=== PATIENT | male | born 1945 | race Caucasian/White ===

== ENCOUNTER 2020-09-06 01:13 | Emergency (ER) | payer MEDICARE, OTHER ==
[~2020-09-06] VITALS: Ht 178 cm; Wt 86.0 kg
[2020-09-06] MEDS ORDERED: OXYMETAZOLINE (AFRIN) 0.05% NA 30 ML BTL ONE (01:17)
[2020-09-06] MEDS ORDERED: TRANEXAMIC ACID 100 MG/ML 10 ML INJECTION ONE (01:30)
--- NOTE | 2020-09-06 01:37 | ED EENT ---
History of Present Illness General Chief Complaint: Nasal Problems Stated Complaint: NOSEBLEED Nursing Triage Note: BROUGHT IN BY [facility] FROM [facility] FOR NOSE BLEED Source: EMS, group home records Exam Limitations: other (PT WITH DEMENTIA AND UNABLE TO GIVE ANY INFORMATION. NO PRIOR VISITS HERE FOR ADDITIONAL PAST MEDICAL HISTORY) History of Present Illness Date Seen by Provider: Sep 06, 2020 Time Seen by Provider: 01:13 Initial Comments PT [facility] EMS [facility] --[facility]--APPARENTLY WITH COVID-19 INFECTION, GROUP HOME DID NOT REPORT THIS, AND IS UNKNOWN IF HE IS STILL UNDER QUARANTINE. PT WITH LEFT SIDED NOSEBLEED--BEGAN JUST PRIOR TO ARRIVAL PT WITH HISTORY OF NOSEBLEEDS, AND HAS ORDER FOR AFRIN SOAKED COTTON BALLS TO NOSE PRN NOSEBLEED, BUT THIS HAS NOT BEEN DONE BY GROUP HOME STAFF PT NOTED TO BE PICKING AT NOSE AND EMS REPORT THAT PT REPEATEDLY WAS BLOWING HIS NOSE IN HIS HANDS EN ROUTE, WELL PICKING HIS NOSE PT IS ON ASPIRIN AND PLAVIX. IS UNCLEAR ON GROUP HOME RECORDS WHAT MEDICAL CONDITION HE HAS THAT HE TAKES THESE MEDICATIONS FOR. GROUP HOME STAFF ARE UNABLE TO GIVE ANY OTHER INFORMATION ABOUT PT PT'S BASELINE LAB VALUES ARE UNKNOWN PCP: DR. JORDAN Allergies and Home Medications Allergies Coded Allergies: Iodine and Iodide Containing Produc (Verified Allergy, Unknown, 09/06/20) Home Medications Cefuroxime Axetil 500 Mg Tablet, 500 MG PO BID Prescribed by: NIKKI RAINEY on 09/06/20 0211 Patient Home Medication List Home Medication List Reviewed: Yes Review of Systems Review of Systems Constitutional: other (UNABLE TO OBTAIN ANY INFORMATION FROM PT) Nose: see HPI Past Cuntkdr-Ziyzpe-Zigikf Hx Past Med/Social Hx: Reviewed and Corrections made Patient Social History Alcohol Use: Denies Use Smoking Status: Unknown if Ever Smoked 2nd Hand Smoke Exposure: No Recent Infectious Disease Expo: No Recent Hopitalizations: No Immunizations Up To Date Tetanus Booster (TDap): Unknown Seasonal Allergies Seasonal Allergies: No Past Medical History Surgeries: Yes (RIGHT FOOT--ALL TOES AMPUTATED. PARTIAL AMPUTATION LEFT GREAT TOE) Amputation, Orthopedic Respiratory: Yes (COVID-19 INFECTION) Pneumonia, COPD Cardiac: Yes High Cholesterol, Hypertension Neurological: Yes (DEMENTIA WITH BEHAVIOR DISTURBANCE) Dementia, Neuropathy, Parkinson's Disease, Seizure Disorder Genitourinary: Yes Prostate Problems, Bladder Infection, Kidney Stones Gastrointestinal: Yes Gastroesophageal Reflux, Chronic Constipation Musculoskeletal: Yes Amputee, Arthritis, Fibromyalgia Endocrine: Yes Diabetes, Insulin dep HEENT: Yes (NOSEBLEEDS) Hearing Impairment: Hard of Hearing Cancer: No Psychosocial: Yes (DEMENTIA WITH BEHAVIOR DISTURBANCE) Sleep Difficulties, Depression Integumentary: No Blood Disorders: No Physical Exam Vital Signs Vital Signs - First Documented 09/06/20 01:13 Temp 36.4 Pulse 89 Resp 18 B/P (MAP) 104/67 (79) Pulse Ox 99 O2 Delivery Room Air Height, Weight, BMI Height: '" Weight: lbs. oz. kg; 27.00 BMI Method: General Appearance: WD/WN, no apparent distress, other (PT COVERED IN BLOOD, INCLUDING THE BOTTOMS OF HIS FEET, CLOTHING SATURATED. PT ZAMORA CATHETER IN PLACE. ) Nose: active bleeding (LEFT NARE), other (PT NOTED TO BE PICKING AT NOSE ON ARRIVAL) Mouth/Throat: other (MOUTH FULL OF BLOOD AND CLOT NOTED ON TONGUE) Cardiovascular: regular rate, rhythm Respiratory: normal breath sounds Neurologic/Psychiatric: other (MOVES ALL EXTREMITIES. PT DOES TALK, BUT IS MOSTLY NON-CONVERSATIONAL. PT DOES NOT FOLLOW COMMANDS WELL. ) Skin: normal color, warm/dry Procedures/Interventions Nasal : Nasal Location: Left Nasal Drops Instilled: Afrin Inspection with: Otoscope Nasal Procedures: Rapid Rhino Progress AFRIN SPRAYED INTO LEFT NOSTRIL PT UNABLE TO FOLLOW COMMANDS TO BLOW NOSE--SITE OF BLEED IS NOT WELL IDENTIFIED, BUT IS POSSIBLY ANTERIOR SEPTUM. 5.5 CM RAPID RHINO SATURATED WITH TXA PLACED IN LEFT NARE. PT UNABLE TO FOLLOW COMMANDS TO GARGLE OR TO EVEN SWISH MOUTH OR TO SPIT TO CLEAR BLOOD AND CLOTS FROM MOUTH AND POSTERIOR PHARYNX. UNABLE TO VIEW POSTERIOR PHARYNX PT UNABLE TO FOLLOW COMMANDS TO OPEN MOUTH FOR ME TO EXAMINE. Progress/Results/Core Measures Results/Orders Lab Results Laboratory Tests Test 09/06/20 01:30 Range/Units White Blood Count 8.2 4.3-11.0 10^3/uL Red Blood Count 2.83 L 4.30-5.52 10^6/uL Hemoglobin 8.9 L 13.3-17.7 g/dL Hematocrit 27 L 40-54 % Mean Corpuscular Volume 97 80-99 fL Mean Corpuscular Hemoglobin 31 25-34 pg Mean Corpuscular Hemoglobin Concent 33 32-36 g/dL Red Cell Distribution Width 14.7 H 10.0-14.5 % Platelet Count 267 130-400 10^3/uL Mean Platelet Volume 10.5 9.0-12.2 fL Immature Granulocyte % (Auto) 1 % Neutrophils (%) (Auto) 61 42-75 % Lymphocytes (%) (Auto) 23 12-44 % Monocytes (%) (Auto) 12 0-12 % Eosinophils (%) (Auto) 3 0-10 % Basophils (%) (Auto) 1 0-10 % Neutrophils # (Auto) 5.0 1.8-7.8 10^3/uL Lymphocytes # (Auto) 1.9 1.0-4.0 10^3/uL Monocytes # (Auto) 1.0 0.0-1.0 10^3/uL Eosinophils # (Auto) 0.3 0.0-0.3 10^3/uL Basophils # (Auto) 0.0 0.0-0.1 10^3/uL Immature Granulocyte # (Auto) 0.1 0.0-0.1 10^3/uL Prothrombin Time 14.5 12.2-14.7 SEC INR Comment 1.1 0.8-1.4 Activated Partial Thromboplast Time 33 24-35 SEC My Orders Orders - NIKKI RAINEY DO Cbc With Automated Diff (09/06/20 01:17) Protime With Inr (09/06/20 01:17) Partial Thromboplastin Time (09/06/20 01:17) Oxymetazoline 0.05% Nasal [place] (Afrin 0. (09/06/20 09:00) Tranexamic Acid Injection (Cyklokapron I (09/06/20 01:30) Oxymetazoline 0.05% Nasal [place] (Afrin 0. (09/06/20 01:17) Medications Given in ED Current Medications Medications Dose Ordered Sig/Chana Route Start Time Stop Time Status Last Admin Dose Admin Tranexamic Acid ONCE ONCE NA 09/06/20 01:30 09/06/20 01:31 DC 09/06/20 01:27 1,000 MG Vital Signs/I&O 09/06/20 01:13 Temp 36.4 Pulse 89 Resp 18 B/P (MAP) 104/67 (79) Pulse Ox 99 O2 Delivery Room Air Blood Pressure Mean: 79 Progress Progress Note : Progress Note NO FURTHER BLEEDING NOTED ANTERIORLY, PT IS UNCOOPERATIVE FOR ADEQUATE INSPECTION OF POSTERIOR PHARYNX, BUT THERE IS NO BLOOD COMING FROM MOUTH AND PT IS NOT CHOKING/GAGGING OR HAVING DIFFICULTY BREATHING PT ABLE TO SWALLOW SMALL AMOUNTS OF WATER WITH STRAW. PT OBSERVED IN ER FOR AN HOUR AFTER NOSE WAS PACKED. NO OBVIOUS EVIDENCE OF RE- BLEED. PRIOR TO DISMISSAL, PT PULLED OUT NASAL PACK. PT AGAIN OBSERVED, AND NO RE-BLEED ING OCCURRED. GROUP HOME STAFF ARRIVE, AND I DISCUSSED REPLACING THE NASAL PACK, AND THEY REPORT THAT HE WILL PULL IT OUT AGAIN AND THEY REPORT THAT PT IS CONSTANTLY PICKING AT HIS NOSE. Departure Impression Primary Impression: Left-sided epistaxis Additional Impressions: ASPIRIN AND PLAVIX THERAPY Anemia Disposition: XFER SNF Condition: Stable Departure-Patient Inst. Referrals: LUCIA GROVER MD, RICHARD A DO Patient Instructions: Nosebleeds (DC), Anemia, Possibly From Low Iron, Adult Add. Discharge Instructions: LEAVE NASAL PACKING IN PLACE DO NOT RUB OR BLOW OR PICK AT NOSE HOLD PLAVIX UNTIL MONDAY REPEAT CBC ON MONDAY--DR. JORDAN FOR ORDERS FOLLOW UP WITH DR. GROVER, ENT, IN 2-3 DAYS FOR FURTHER CARE OF NOSEBLEED RETURN TO ER IF WORSE FOLLOW UP WITH DR. JORDAN ON MONDAY FOR FOLLOW UP ON ANEMIA All discharge instructions reviewed with patient and/or family. Voiced understanding. Scripts Cefuroxime Axetil (Cefuroxime) 500 Mg Tablet 500 MG PO BID, #20 TAB Prov: NIKKI RAINEY DO 09/06/20 NIKKI RAINEY DO Sep 06, 2020 01:36
[2020-09-06 01:49] LABS: BASOPHILS % (AUTO) 1 % (0-10); EOSINOPHILS # (AUTO) 0.3 10^3/uL (0.0-0.3); EOSINOPHILS % (AUTO) 3 % (0-10); HEMATOCRIT 27 % (40-54); HEMOGLOBIN 8.9 g/dL (13.3-17.7); LYMPHOCYTES # (AUTO) 1.9 10^3/uL (1.0-4.0); LYMPHOCYTES % (AUTO) 23 % (12-44); MEAN CORPUSCULAR HEMOGLOBIN 31 pg (25-34); MEAN CORPUSCULAR HGB CONC 33 g/dL (32-36); MEAN CORPUSCULAR VOLUME 97 fL (80-99); MEAN PLATELET VOLUME 10.5 fL (9.0-12.2); MONOCYTES % (AUTO) 12 % (0-12); NEUTROPHILS % (AUTO) 61 % (42-75); PLATELET COUNT 267 10^3/uL (130-400); WHITE BLOOD COUNT 8.2 10^3/uL (4.3-11.0)
[2020-09-06 01:58] LABS: INR 1.1 (0.8-1.4); PROTHROMBIN TIME PATIENT 14.5 SEC (12.2-14.7)
[2020-09-06] MEDS ORDERED: CEFU500T63 PO (02:11)
--- NOTE | 2020-09-06 02:30 | NUR ---
[facility] notified of pt's pending discharge.
[2020-09-06 03:05] VITALS: BP 109/66
[2020-09-06] MEDS ORDERED: OXYMETAZOLINE (AFRIN) 0.05% NA 30 ML BTL SCH (09:00)
== END 2020-09-06 03:05 ==
LOC: ER 01:16
DX: R04.0 Epistaxis (principal); D64.9 Anemia, unspecified; F03.90 Unspecified dementia, unspecified severity, without behavioral disturbance, psychotic disturbance, mood disturbance, and anxiety; Z88.8 Allergy status to other drugs, medicaments and biological substances
CPT/HCPCS: 36415; 85025; 85610; 85730

== ENCOUNTER 2020-09-07 13:46 | Emergency (ER) | payer BC, OTHER ==
[~2020-09-07] VITALS: Ht 182 cm; Wt 83.9 kg
[~2020-09-07 13:46] MED LIST: CEFU500T63 PO
[2020-09-07] MEDS ORDERED: LIDOCAINE/EPI 2% 1:100,00 (XYLOCAINE) 20 ML VIAL ONE (13:54)
[2020-09-07] MEDS ORDERED: LIDOCAINE/EPI 2% 1:200,00 (XYLOCAINE) 20 ML VIAL INJ ONE (14:00)
--- NOTE | 2020-09-07 14:01 | ED Integumentary General ---
General Chief Complaint: Skin/Wound Problems Stated Complaint: FOOT LAC History of Present Illness Date Seen by Provider: Sep 07, 2020 Time Seen by Provider: 13:44 Initial Comments Patient presents the ER by EMS from [facility] with chief complaint of a couple day old laceration to the medial right ankle of unknown origin that has ceased to stop bleeding. The pressure dressing on it unsuccessfully stopping it. He is on Plavix but no blood thinners. The stop Plavix 2 days ago. Patient has dementia and is oriented to self but nothing else. History of anemia. The patient denies shortness of breath or chest pain[facility] noted he had a blood pressure in the 80s and 90s systolic. Allergies and Home Medications Allergies Coded Allergies: Iodine and Iodide Containing Produc (Verified Allergy, Unknown, 09/06/20) Home Medications Cefuroxime Axetil 500 Mg Tablet, 500 MG PO BID Prescribed by: NIKKI RAINEY on 09/06/20 0211 Patient Home Medication List Home Medication List Reviewed: Yes Review of Systems Review of Systems Constitutional: No chills, No fever EENTM: No hearing loss, No ear pain Cardiovascular: No chest pain, No edema Gastrointestinal: No abdominal pain, No nausea Genitourinary: No discharge, No dysuria Skin: see HPI All Other Systems Reviewed Negative Unless Noted: Yes Past Ewaojkb-Biipws-Hbjngu Hx Patient Social History Alcohol Use: Denies Use Type Used: Smokeless Tobacco 2nd Hand Smoke Exposure: No Recent Hopitalizations: No Immunizations Up To Date Tetanus Booster (TDap): Unknown Seasonal Allergies Seasonal Allergies: No Past Medical History Surgeries: Yes (RIGHT FOOT--ALL TOES AMPUTATED. PARTIAL AMPUTATION LEFT GREAT TOE) Amputation, Orthopedic Respiratory: Yes (COVID-19 INFECTION) Pneumonia, COPD Cardiac: Yes High Cholesterol, Hypertension Neurological: Yes (DEMENTIA WITH BEHAVIOR DISTURBANCE) Dementia, Neuropathy, Parkinson's Disease, Seizure Disorder Genitourinary: Yes Prostate Problems, Bladder Infection, Kidney Stones Gastrointestinal: Yes Gastroesophageal Reflux, Chronic Constipation Musculoskeletal: Yes Amputee, Arthritis, Fibromyalgia Endocrine: Yes Diabetes, Insulin dep HEENT: Yes (NOSEBLEEDS) Hearing Impairment: Hard of Hearing Cancer: No Psychosocial: Yes (DEMENTIA WITH BEHAVIOR DISTURBANCE) Sleep Difficulties, Depression Integumentary: No Blood Disorders: No Physical Exam Vital Signs Capillary Refill : General Appearance: WD/WN, no apparent distress HEENT: PERRL/EOMI, pharynx normal Neck: full range of motion, normal inspection Cardiovascular: normal peripheral pulses, regular rate, rhythm Respiratory: no respiratory distress, no accessory muscle use Neurologic/Psychiatric: alert, normal mood/affect, other (Oriented to self.) Skin: other (2 mm punctate laceration over a varicosity on the right medial ankle just inferior to the malleolus.) Procedures/Interventions Wound Location: Lower Extremities Other Wound Location Right ankle inferior to the medial malleolus Wound Length (cm): 2 Wound's Depth, Shape: superficial, linear Wound Explored: clean Irrigated w/ Saline (ccs): 500 Betadine Prep?: Yes (Chlorhexidine) Anesthesia: Lidocaine w/ Epi (2%) Volume Anesthetic (ccs): 1 Wound Debrided: minimal Suture: Ethlion Suture Size: 4-0 Number of Sutures: 1 Sterile Dressing Applied?: Yes Progress Thoroughly cleansed the skin with chlorhexidine and sterile saline. We then allowed that to dry and rinsed with sterile saline. Placed a single suture using sterile technique in a pursestring manner which stopped the bleeding. Gauze dressing with Kerlix and a small layer of Coban for compression was placed. Patient tolerated the procedure well. Progress/Results/Core Measures Results/Orders My Orders Orders - CHRISTOS CASILLAS Cbc With Automated Diff (09/07/20 13:54) Comprehensive Metabolic Panel (09/07/20 13:54) Lidocaine/Epi Mpf 2% 1:200,000 (Xylocain (09/07/20 14:00) Progress Progress Note : Time: 14:11 Progress Note Bleeding varicosity. Plan to put a pursestring stitch in place. Check some basic labs. 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 Decision time for Depature: 14:13 Referrals: LEANDRA JORDAN DO (PCP/Family) Primary Care Physician Patient Instructions: Treatment of Varicose Veins of the Leg Add. Discharge Instructions: Keep the wound clean with regular soap and water. Keep it dry and you may apply thin layer of Vaseline and/or just gauze with Kerlix to be changed daily. Follow-up with Dr. Jordan for wound recheck. You may return to the ER or have nursing staff remove the suture in 10 days. If he has bleeding then elevate the leg above the level of his heart and apply direct pressure. Return to the ER if you are unable to control the bleeding. Discussed with Dr. Jordan when to restart Plavix. All discharge instructions reviewed with patient and/or family. Voiced understanding. CHRISTOS CASILLAS Sep 07, 2020 14:01
[2020-09-07 14:05] LABS: BASOPHILS % (AUTO) 1 % (0-10); EOSINOPHILS # (AUTO) 0.3 10^3/uL (0.0-0.3); EOSINOPHILS % (AUTO) 4 % (0-10); HEMATOCRIT 27 % (40-54); HEMOGLOBIN 8.8 g/dL (13.3-17.7); LYMPHOCYTES # (AUTO) 1.9 10^3/uL (1.0-4.0); LYMPHOCYTES % (AUTO) 23 % (12-44); MEAN CORPUSCULAR HEMOGLOBIN 31 pg (25-34); MEAN CORPUSCULAR HGB CONC 32 g/dL (32-36); MEAN CORPUSCULAR VOLUME 97 fL (80-99); MEAN PLATELET VOLUME 10.5 fL (9.0-12.2); MONOCYTES # (AUTO) 0.7 10^3/uL (0.0-1.0); MONOCYTES % (AUTO) 8 % (0-12); NEUTROPHILS # (AUTO) 5.6 10^3/uL (1.8-7.8); NEUTROPHILS % (AUTO) 65 % (42-75); PLATELET COUNT 311 10^3/uL (130-400); WHITE BLOOD COUNT 8.6 10^3/uL (4.3-11.0)
[2020-09-07 14:12] LABS: ALBUMIN 3.7 GM/DL (3.2-4.5); POTASSIUM 4.5 MMOL/L (3.6-5.0)
[2020-09-07 14:14] LABS: CALCIUM 9.4 MG/DL (8.5-10.1)
[2020-09-07 14:17] LABS: BILIRUBIN,TOTAL 0.4 MG/DL (0.1-1.0)
[2020-09-07 14:19] LABS: CREATININE SERUM 1.72 MG/DL (0.60-1.30)
--- NOTE | 2020-09-07 14:26 | NUR ---
[facility] noted on pt discharge and need for transporation.
--- NOTE | 2020-09-07 15:36 | NUR ---
CALLED [facility] FOR TRANSPORTATION STATUS. NURSE STATED IT WOULD BE ABOUT 45 MINS UNTIL SOMEONE COULD BE HERE TO GET PT.
[2020-09-07 17:05] VITALS: BP 101/64
== END 2020-09-07 17:05 | disposition home or self-care (01) ==
LOC: EDUNIT# 13:46 → ER 13:47
DX: I83.891 Varicose veins of right lower extremity with other complications (principal); Z91.041 Radiographic dye allergy status
CPT/HCPCS: 12001; 36415; 80053; 85025

== ENCOUNTER 2020-09-17 04:52 | Emergency (ER) | payer BC, OTHER ==
[2020-09-17] MEDS ORDERED: TRANEXAMIC ACID 100 MG/ML 10 ML INJECTION IV ONE (05:00)
--- NOTE | 2020-09-17 05:17 | ED EENT ---
History of Present Illness General Chief Complaint: Nasal Problems Stated Complaint: NOSE BLEED Source: EMS, long-term records, old records Exam Limitations: other (PT WITH DEMENTIA AND UNABLE TO ANSWER QUESTIONS) History of Present Illness Date Seen by Provider: Sep 17, 2020 Time Seen by Provider: 04:54 Initial Comments PT ARRIVES VIA EMS FROM [facility] STAFF NOTICED THAT PT HAD NOSEBLEED FROM LEFT NARE AROUND 0400 THIS AM PT IS ON ASPIRIN AND PLAVIX EMS REPORT THAT ASSISTED STAFF PLACED GAUZE SOAKED WITH AFRIN IN LEFT NARE, AND BLEEDING SEEMS TO BE CONTROLLED AT THIS TIME. PT WITH DEMENTIA/ALZHEIMER'S AND WAS SEEN HERE 09/06/20 FOR EXACT SAME THING, SAME NARE. IT WAS PACKED WITH RAPID RHINO WITH TXA AT THAT TIME ( WHICH PT PULLED OUT TRANSPORTATION FROM [facility] ARRIVED TO PICK HIM UP. ASSISTED STAFF OPTED NOT TO HAVE IT RE-PACKED IT WAS NO LONGER BLEEDING. PT WITH LONG HISTORY OF NOSE PICKING, PER ASSISTED STAFF) . PLAVIX WAS HELD AT THAT TIME AND WAS TO HAVE HAD REPEAT CBC DONE AND FOLLOWED UP WITH DR. GROVER, ENT. H GB AT THAT TIME WAS 8.8 PT SEEN HERE AGAIN 09/07/20 FOR PERSISTENT BLEEDING FROM VARICOSE VEIN ON MEDIAL ASPECT OF RIGHT ANKLE AND IT WAS SUTURED AND BLEEDING WAS CONTROLLED. PCP: DR. JORDAN Allergies and Home Medications Allergies Coded Allergies: Iodine and Iodide Containing Produc (Verified Allergy, Unknown, 09/06/20) Home Medications Cefuroxime Axetil 500 Mg Tablet, 500 MG PO BID Prescribed by: NIKKI RAINEY on 09/17/20 0523 Patient Home Medication List Home Medication List Reviewed: Yes Review of Systems Review of Systems Constitutional: no symptoms reported (PT WITH DEMENTIA AND IS UNABLE TO ANSWER QUESTIONS) Nose: see HPI Past Mzdgfpx-Krfbnk-Xbbbjr Hx Patient Social History Alcohol Use: Denies Use Type Used: Smokeless Tobacco 2nd Hand Smoke Exposure: No Recent Hopitalizations: No Immunizations Up To Date Tetanus Booster (TDap): Unknown Seasonal Allergies Seasonal Allergies: No Past Medical History Surgeries: Yes (RIGHT FOOT--ALL TOES AMPUTATED. PARTIAL AMPUTATION LEFT GREAT TOE) Amputation, Orthopedic Respiratory: Yes (COVID-19 INFECTION) Pneumonia, COPD Cardiac: Yes High Cholesterol, Hypertension Neurological: Yes (DEMENTIA WITH BEHAVIOR DISTURBANCE) Dementia, Neuropathy, Parkinson's Disease, Seizure Disorder Genitourinary: Yes Prostate Problems, Bladder Infection, Kidney Stones Gastrointestinal: Yes Gastroesophageal Reflux, Chronic Constipation Musculoskeletal: Yes Amputee, Arthritis, Fibromyalgia Endocrine: Yes Diabetes, Insulin dep HEENT: Yes (NOSEBLEEDS) Hearing Impairment: Hard of Hearing Cancer: No Psychosocial: Yes (DEMENTIA WITH BEHAVIOR DISTURBANCE) Sleep Difficulties, Depression Integumentary: No Blood Disorders: No Physical Exam Vital Signs Vital Signs - First Documented 09/17/20 09/17/20 05:03 08:08 Temp 36.2 Pulse 74 Resp 16 B/P (MAP) 127/92 (104) Pulse Ox 95 O2 Delivery Room Air Height, Weight, BMI Height: '" Weight: lbs. oz. kg; 25.00 BMI Method: General Appearance: WD/WN, no apparent distress, other (SOME BLOOD NOTED ON CLOTHING, MOSTLY HIS SHIRT, BUT IS NOT SATURATED. SMALL ABOUNT OF BLOOD ON FEET. ) Nose: other (LEFT NARE WITH GAUZE IN PLACE, WITH LARGE CLOT ATTACHED. NASAL CLAMP IN PLACE WELL. NO ACTIVE BLEEDING NOTED AT THIS TIME. ) Mouth/Throat: other (SMALL AMOUNT OF DRIED BLOOD ON LIPS. BUT NO APPARENT BLOOD ON TONGUE. PT HAS DIFFICULTY FOLLOWING COMMANDS TO OPEN MOUTH AND STICK OUT TONGUE. ) Neurologic/Psychiatric: other (PT WITH DEMENTIA, PT DOES TALK BUT IS MOSTLY NON-CONVERSATIONAL SPEECH. HAS DIFFICULTY FOLLOWING COMMANDS. ) Skin: normal color, warm/dry, other (SUTURE TO RIGHT MEDIAL ANKLE IN PLACE, WITH NO BLEEDING OR SIGNS OF INFECTION. NO EXCESSIVE BRUISING OR PETECHIAE NOTED ELSEWHERE ON BODY) Procedures/Interventions Suture Size: 4-0 Nasal : Nasal Location: Left Inspection with: Otoscope Nasal Procedures: Rapid Rhino Progress 5.5 CM RAPID RHINO SOAKED WITH TXA PLACED IN LEFT NARE. BLEEDING CONTROLLED PT OBSERVED IN ER. NO FURTHER BLEEDING NOTED. Progress/Results/Core Measures Results/Orders Lab Results Laboratory Tests Test 09/17/20 05:05 Range/Units White Blood Count 9.5 4.3-11.0 10^3/uL Red Blood Count 2.69 L 4.30-5.52 10^6/uL Hemoglobin 8.5 L 13.3-17.7 g/dL Hematocrit 27 L 40-54 % Mean Corpuscular Volume 99 80-99 fL Mean Corpuscular Hemoglobin 32 25-34 pg Mean Corpuscular Hemoglobin Concent 32 32-36 g/dL Red Cell Distribution Width 16.4 H 10.0-14.5 % Platelet Count 306 130-400 10^3/uL Mean Platelet Volume 9.7 9.0-12.2 fL Prothrombin Time 14.0 12.2-14.7 SEC INR Comment 1.1 0.8-1.4 Activated Partial Thromboplast Time 34 24-35 SEC My Orders Orders - NIKKI RAINEY DO Cbc No Diff (09/17/20 04:57) Protime With Inr (09/17/20 04:57) Partial Thromboplastin Time (09/17/20 04:57) Tranexamic Acid Injection (Cyklokapron I (09/17/20 05:00) Medications Given in ED Vital Signs/I&O Progress Progress Note : Progress Note 0605--PT HAS PULLED THE RAPID RHINO OUT. NO BLEEDING NOTED AT THIS TIME, AND NO BLOOD ON THE PACKING. PACKING WAS RE-INSERTED WITHOUT DIFFICULTY. [facility] HAS BEEN CONTACTED. THEY WILL SEND SOMEONE OUT TO PICK PT UP--ETA 1 TO 1 1/2 HOURS. 0630--PT HAS PULLED THE RAPID RHINO OUT AGAIN. NO BLOOD ON PACKING AND NO BLEEDING AT THIS TIME. PACKING LEFT OUT AT THIS POINT. Departure Impression Primary Impression: RECURRENT LEFT SIDED EPISTAXIS Additional Impressions: ASPIRIN AND PLAVIX THERAPY DEMENTIA WITH HISTORY OF NOSEPICKING Anemia Disposition: 03 XFER SNF Condition: Stable Departure-Patient Inst. Referrals: LUCIA GROVER MD, RICHARD A DO (PCP/Family) Primary Care Physician Patient Instructions: Nosebleeds (DC) Add. Discharge Instructions: HOLD PLAVIX--DO NOT RESTART UNTIL DISCUSSING WITH DR. JORDAN CONTINUE ALL PREVIOUS INSTRUCTIONS FOLLOW UP WITH DR. GROVER THIS WEEK FOR FURTHER CARE FOLLOW UP WITH DR. JORDAN THIS WEEK FOR RECHECK OF HEMOGLOBIN All discharge instructions reviewed with patient and/or family. Voiced understanding. Scripts Cefuroxime Axetil (Cefuroxime) 500 Mg Tablet 500 MG PO BID, #20 TAB Prov: NIKKI RAINEY DO 09/17/20 NIKKI RAINEY DO Sep 17, 2020 05:17
[2020-09-17 05:21] LABS: HEMOGLOBIN 8.5 g/dL (13.3-17.7); MEAN PLATELET VOLUME 9.7 fL (9.0-12.2); WHITE BLOOD COUNT 9.5 10^3/uL (4.3-11.0)
[2020-09-17] MEDS ORDERED: CEFU500T63 PO (05:23)
[2020-09-17 05:42] LABS: INR 1.1 (0.8-1.4)
[2020-09-17 08:08] VITALS: BP 117/76
== END 2020-09-17 08:10 ==
LOC: EDUNIT# 04:52 → ER 04:53
DX: R04.0 Epistaxis (principal); F03.90 Unspecified dementia, unspecified severity, without behavioral disturbance, psychotic disturbance, mood disturbance, and anxiety; D64.9 Anemia, unspecified; Z91.041 Radiographic dye allergy status; Z79.82 Long term (current) use of aspirin; Z79.02 Long term (current) use of antithrombotics/antiplatelets
CPT/HCPCS: 36415; 85027; 85610; 85730

== ENCOUNTER 2020-09-22 07:51 | Outpatient (CLI) | payer BC, OTHER ==
[~2020-09-22] VITALS: Ht 178 cm; Wt 83.9 kg
[2020-09-22 08:00] VITALS: BP 116/67
[2020-09-22] MEDS ORDERED: NS IV 500 ML 500 ML IV SCH (08:30)
[2020-09-22] MEDS ORDERED: ACETAMINOPHEN 325 MG TABLET PO ONE (08:30)
[2020-09-22] MEDS ORDERED: diphenhydrAMINE 25 MG TAB (BENADRYL) PO ONE (08:30)
[2020-09-22 12:51] LABS: HEMOGLOBIN 8.9 g/dL (13.3-17.7)
== END 2020-09-22 13:30 ==
LOC: SDC 07:51
PROVIDERS: ATTEND Family Medicine
DX: D64.9 Anemia, unspecified (principal)
CPT/HCPCS: 36430; 85014; 85018; 86850; 86900; 86901; 86920; P9016; 36415

== ENCOUNTER → 2020-11-16 | Outpatient (CLI) | payer BC, OTHER | LOC: CARD 12:22 | PROVIDERS: ATTEND Family Medicine | DX: R07.9 Chest pain, unspecified (principal) | CPT/HCPCS: 93005 ==

== ENCOUNTER → 2020-12-05 | Outpatient (CLI) | payer BC, OTHER ==
[~2020-12-05] MED LIST changes: +LEVO500T80 PO
[2020-12-05 11:33] LABS: BILIRUBIN,URINE NEGATIVE (NEGATIVE); CLARITY,URINE CLOUDY; GLUCOSE, URINE (UA) NEGATIVE (NEGATIVE); KETONES,URINE NEGATIVE (NEGATIVE); LEUKOCYTE ESTERASE ,URINE 3+ (NEGATIVE); NITRITE,URINE POSITIVE (NEGATIVE); PROTEIN,URINE 2+ (NEGATIVE)
[2020-12-05 11:41] LABS: BACTERIA,URINE MODERATE /HPF; COLOR,URINE AMBER; RBC,URINE TNTC /HPF; SQUAMOUS EPITHELIAL CELL,UR RARE /HPF; WBC,URINE TNTC /HPF
== END ==
LOC: CVS 11:29
PROVIDERS: ATTEND Family Medicine
DX: Z01.89 Encounter for other specified special examinations (principal)
CPT/HCPCS: 81000; 87077; 87088; 87186

== ENCOUNTER 2020-12-08 12:46 | Emergency (ER) | payer BC, OTHER ==
[~2020-12-08] VITALS: Ht 184 cm; Wt 83.9 kg
[~2020-12-08 12:46] MED LIST changes: -LEVO500T80 PO
--- NOTE | 2020-12-08 13:44 | ED Abdominal Pain ---
General Chief Complaint: Abdominal/GI Problems Stated Complaint: RLQ PAIN Nursing Triage Note: PT CC OF RLQ PAIN SENT HERE BY DR. JORDAN. RN AT FACILITY STATES ABD PAIN FOR A FEW DAYS OFF AND ON RLQ, PAIN ON PALPATIONN NORMAL BM THIS A.M., DENIES NV, SUPRA PUBIC CATHETER IN PLACE. Sepsis Screen: No Definite Risk Source of Information: Patient Exam Limitations: No Limitations History of Present Illness Date Seen by Provider: December 08, 2020 Time Seen by Provider: 13:43 Initial Comments To ER by private vehicle from [facility] with reports of right lower quadrant abdominal pain for a few days. Timing/Duration: 4-5 Days Severity/Quality: Moderate, Severe Location: RLQ Radiation: No Radiation Activities at Onset: None Allergies and Home Medications Allergies Coded Allergies: Iodine and Iodide Containing Produc (Verified Allergy, Unknown, 09/06/20) Home Medications Cefuroxime Axetil 500 Mg Tablet, 500 MG PO BID Prescribed by: NIKKI RAINEY on 09/17/20 0523 Patient Home Medication List Home Medication List Reviewed: Yes Review of Systems Review of Systems Constitutional: see HPI EENTM: No Symptoms Reported Respiratory: No Symptoms Reported Cardiovascular: No Symptoms Reported Gastrointestinal: See HPI, Abdominal Pain Genitourinary: No Symptoms Reported Musculoskeletal: no symptoms reported Skin: no symptoms reported Psychiatric/Neurological: No Symptoms Reported Endocrine: No Symptoms Reported Hematologic/Lymphatic: No Symptoms Reported Past Iwfmavw-Xtmvjy-Sryafr Hx Patient Social History Alcohol Use: Denies Use Smoking Status: Never a Smoker Type Used: Smokeless Tobacco 2nd Hand Smoke Exposure: No Recent Infectious Disease Expo: No Recent Hopitalizations: No Immunizations Up To Date Tetanus Booster (TDap): Unknown Seasonal Allergies Seasonal Allergies: No Past Medical History Surgeries: Yes (RIGHT FOOT--ALL TOES AMPUTATED. PARTIAL AMPUTATION LEFT GREAT TOE) Amputation, Orthopedic Respiratory: Yes (COVID-19 INFECTION) Pneumonia, COPD Cardiac: Yes High Cholesterol, Hypertension Neurological: Yes (DEMENTIA WITH BEHAVIOR DISTURBANCE) Dementia, Neuropathy, Parkinson's Disease, Seizure Disorder Genitourinary: Yes Prostate Problems, Bladder Infection, Kidney Stones Gastrointestinal: Yes Gastroesophageal Reflux, Chronic Constipation Musculoskeletal: Yes Amputee, Arthritis, Fibromyalgia Endocrine: Yes Diabetes, Insulin dep HEENT: Yes (NOSEBLEEDS) Hearing Impairment: Hard of Hearing Cancer: No Psychosocial: Yes (DEMENTIA WITH BEHAVIOR DISTURBANCE) Sleep Difficulties, Depression Integumentary: No Blood Disorders: No Physical Exam Vital Signs Vital Signs - First Documented 12/08/20 13:14 Temp 35.9 Pulse 60 Resp 18 B/P (MAP) 140/70 (93) Pulse Ox 97 O2 Delivery Room Air Capillary Refill : Less Than 3 Seconds Height/Weight/BMI Height: '" Weight: lbs. oz. kg; 24.00 BMI Method: General Appearance: WD/WN, no apparent distress HEENT: PERRL/EOMI, normal ENT inspection Respiratory: no respiratory distress, no accessory muscle use Gastrointestinal: normal bowel sounds, soft, tenderness (Right-sided tenderness to palpation. Suprapubic catheter is in place.) Extremities: normal range of motion, non-tender Neurologic/Psychiatric: alert, normal mood/affect, oriented x 3 Skin: normal color, warm/dry Procedures/Interventions Suture Size: 4-0 Progress/Results/Core Measures Results/Orders Lab Results Laboratory Tests Test 12/08/20 13:30 Range/Units White Blood Count 7.0 4.3-11.0 10^3/uL Red Blood Count 3.80 L 4.30-5.52 10^6/uL Hemoglobin 11.0 L 13.3-17.7 g/dL Hematocrit 35 L 40-54 % Mean Corpuscular Volume 91 80-99 fL Mean Corpuscular Hemoglobin 29 25-34 pg Mean Corpuscular Hemoglobin Concent 32 32-36 g/dL Red Cell Distribution Width 14.3 10.0-14.5 % Platelet Count 216 130-400 10^3/uL Mean Platelet Volume 11.1 9.0-12.2 fL Immature Granulocyte % (Auto) 0 % Neutrophils (%) (Auto) 59 42-75 % Lymphocytes (%) (Auto) 27 12-44 % Monocytes (%) (Auto) 9 0-12 % Eosinophils (%) (Auto) 5 0-10 % Basophils (%) (Auto) 0 0-10 % Neutrophils # (Auto) 4.1 1.8-7.8 10^3/uL Lymphocytes # (Auto) 1.9 1.0-4.0 10^3/uL Monocytes # (Auto) 0.6 0.0-1.0 10^3/uL Eosinophils # (Auto) 0.4 H 0.0-0.3 10^3/uL Basophils # (Auto) 0.0 0.0-0.1 10^3/uL Immature Granulocyte # (Auto) 0.0 0.0-0.1 10^3/uL Urine Color YELLOW Urine Clarity CLEAR Urine pH 6.0 5-9 Urine Specific [place] 1.020 1.016-1.022 Urine Protein 2+ H NEGATIVE Urine Glucose (UA) NEGATIVE NEGATIVE Urine Ketones NEGATIVE NEGATIVE Urine Nitrite POSITIVE H NEGATIVE Urine Bilirubin NEGATIVE NEGATIVE Urine Urobilinogen 0.2 < = 1.0 MG/DL Urine Leukocyte Esterase 3+ H NEGATIVE Urine RBC (Auto) 1+ H NEGATIVE Urine RBC 2-5 H /HPF Urine WBC 50-100 H /HPF Urine Squamous Epithelial Cells RARE /HPF Urine Crystals NONE /LPF Urine Bacteria MODERATE H /HPF Urine Casts NONE /LPF Urine Mucus NEGATIVE /LPF Urine Culture Indicated YES Sodium Level 145 135-145 MMOL/L Potassium Level 4.3 3.6-5.0 MMOL/L Chloride Level 109 H 98-107 MMOL/L Carbon Dioxide Level 24 21-32 MMOL/L Anion Gap 12 5-14 MMOL/L Blood Urea Nitrogen 29 H 7-18 MG/DL Creatinine 1.05 0.60-1.30 MG/DL Estimat Glomerular Filtration Rate > 60 BUN/Creatinine Ratio 28 Glucose Level 92 70-105 MG/DL Calcium Level 9.0 8.5-10.1 MG/DL Corrected Calcium 9.2 8.5-10.1 MG/DL Total Bilirubin 0.3 0.1-1.0 MG/DL Aspartate Amino Transf (AST/SGOT) 20 5-34 U/L Alanine Aminotransferase (ALT/SGPT) 14 0-55 U/L Alkaline Phosphatase 68 40-136 U/L Total Protein 6.5 6.4-8.2 GM/DL Albumin 3.7 3.2-4.5 GM/DL My Orders Orders - ALEXA KEYS CATECHIST Cbc With Automated Diff (12/08/20 13:36) Comprehensive Metabolic Panel (12/08/20 13:36) Ua Culture If Indicated (12/08/20 13:36) Ed Iv/Invasive Line Start (12/08/20 13:36) Ct Abd/Pelvis Wo(Kidney Stone) (12/08/20 13:36) Urine Culture (12/08/20 13:30) Vital Signs/I&O 12/08/20 13:14 Temp 35.9 Pulse 60 Resp 18 B/P (MAP) 140/70 (93) Pulse Ox 97 O2 Delivery Room Air Blood Pressure Mean: 93 Diagnostic Imaging Diagonstic Imaging: CT Comments NAME: JOSI ROMEO [facility] REC#: [id number] PT STATUS: REG ER : 1945 PHYSICIAN: ALEXA KEYS CATECHIST ADMIT DATE: 12/08/20/ER Draft Date of Exam:12/08/20 CT ABD/PELVIS WO(KIDNEY STONE) INDICATION: Abdominal pain. TECHNIQUE: Multiple contiguous axial images were obtained through the abdomen and pelvis without the use of intravenous contrast. Auto Exposure Controls were utilized during the CT exam to meet ALARA standards for radiation dose reduction. COMPARISON: There is no prior study for comparison. FINDINGS: Visualized portions of the lung bases show dependent atelectatic changes. There is no pleural fluid collection or free intraperitoneal air. The liver shows no focal lesions. Gallbladder appears normal. The spleen, adrenals, and pancreas appear normal. There are some tiny calcified periaortic nodes of questionable significance. Kidneys bilaterally showed no hydronephrosis. There are multiple stones in the left kidney as well as surgical clips anterior to the left kidney. There are multiple small stones in the right kidney. There is no ureteral stone. There is a suprapubic catheter in the bladder. Prostate gland contains multiple seed implants. There is no retroperitoneal adenopathy. There is no ascites. There is a large amount of stool in the colon. There is no sign of bowel obstruction. There are extensive degenerative findings in the lumbar spine. IMPRESSION: There are bilateral renal calculi as well as postop changes in left kidney, without evidence of hydronephrosis or ureteral stone. There is a large amount of stool in the colon. There is no overt bowel obstruction. There is a suprapubic catheter in the bladder and the bladder is decompressed. Dictated on workstation # [id number] Dict: 12/08/20 1437 Trans: 12/08/20 1445 [id number] Interpreted by: JOE PETTIT MD Electronically signed by: Departure Impression Primary Impression: Urinary tract infection Disposition: 01 HOME, SELF-CARE Condition: Stable Departure-Patient Inst. Decision time for Depature: 14:55 Referrals: LEANDRA JORDAN DO (PCP/Family) Primary Care Physician Patient Instructions: Urinary Tract Infection, Adult (DC) Add. Discharge Instructions: 1. Antibiotics as directed. Return to ER for any concerns. Follow-up with your doctor later this week for recheck. All discharge instructions reviewed with patient and/or family. Voiced understanding. ALEXA KEYS APRN December 08, 2020 13:44
[2020-12-08 13:45] LABS: BASOPHILS % (AUTO) 0 % (0-10); EOSINOPHILS # (AUTO) 0.4 10^3/uL (0.0-0.3); EOSINOPHILS % (AUTO) 5 % (0-10); HEMATOCRIT 35 % (40-54); LYMPHOCYTES # (AUTO) 1.9 10^3/uL (1.0-4.0); LYMPHOCYTES % (AUTO) 27 % (12-44); MEAN CORPUSCULAR HEMOGLOBIN 29 pg (25-34); MEAN CORPUSCULAR HGB CONC 32 g/dL (32-36); MEAN CORPUSCULAR VOLUME 91 fL (80-99); MEAN PLATELET VOLUME 11.1 fL (9.0-12.2); MONOCYTES # (AUTO) 0.6 10^3/uL (0.0-1.0); MONOCYTES % (AUTO) 9 % (0-12); NEUTROPHILS # (AUTO) 4.1 10^3/uL (1.8-7.8); NEUTROPHILS % (AUTO) 59 % (42-75); PLATELET COUNT 216 10^3/uL (130-400)
[2020-12-08 13:46] LABS: BILIRUBIN,URINE NEGATIVE (NEGATIVE); CLARITY,URINE CLEAR; COLOR,URINE YELLOW; GLUCOSE, URINE (UA) NEGATIVE (NEGATIVE); KETONES,URINE NEGATIVE (NEGATIVE); LEUKOCYTE ESTERASE ,URINE 3+ (NEGATIVE); NITRITE,URINE POSITIVE (NEGATIVE); PROTEIN,URINE 2+ (NEGATIVE)
[2020-12-08 13:58] LABS: BACTERIA,URINE MODERATE /HPF; SQUAMOUS EPITHELIAL CELL,UR RARE /HPF; WBC,URINE 50-100 /HPF
[2020-12-08 14:03] LABS: ALBUMIN 3.7 GM/DL (3.2-4.5); CHLORIDE 109 MMOL/L (98-107); POTASSIUM 4.3 MMOL/L (3.6-5.0); SODIUM 145 MMOL/L (135-145)
[2020-12-08 14:06] LABS: GLUCOSE 92 MG/DL (70-105); TOTAL PROTEIN 6.5 GM/DL (6.4-8.2)
[2020-12-08 14:07] LABS: CARBON DIOXIDE 24 MMOL/L (21-32)
[2020-12-08 14:08] LABS: BILIRUBIN,TOTAL 0.3 MG/DL (0.1-1.0)
[2020-12-08 14:09] LABS: ALKALINE PHOSPHATASE 68 U/L (40-136)
[2020-12-08 14:10] LABS: CREATININE SERUM 1.05 MG/DL (0.60-1.30); GFR ESTIMATED > 60
[2020-12-08 14:11] LABS: BUN/CREATININE RATIO 28
[2020-12-08 14:12] LABS: ALANINE AMINOTRANSFERASE 14 U/L (0-55)
--- NOTE | 2020-12-08 14:45 | Diagnostic Imaging Report ---
INDICATION: Abdominal pain. TECHNIQUE: Multiple contiguous axial images were obtained through the abdomen and pelvis without the use of intravenous contrast. Auto Exposure Controls were utilized during the CT exam to meet ALARA standards for radiation dose reduction. COMPARISON: There is no prior study for comparison. FINDINGS: Visualized portions of the lung bases show dependent atelectatic changes. There is no pleural fluid collection or free intraperitoneal air. The liver shows no focal lesions. Gallbladder appears normal. The spleen, adrenals, and pancreas appear normal. There are some tiny calcified periaortic nodes of questionable significance. Kidneys bilaterally showed no hydronephrosis. There are multiple stones in the left kidney as well as surgical clips anterior to the left kidney. There are multiple small stones in the right kidney. There is no ureteral stone. There is a suprapubic catheter in the bladder. Prostate gland contains multiple seed implants. There is no retroperitoneal adenopathy. There is no ascites. There is a large amount of stool in the colon. There is no sign of bowel obstruction. There are extensive degenerative findings in the lumbar spine. IMPRESSION: There are bilateral renal calculi as well as postop changes in left kidney, without evidence of hydronephrosis or ureteral stone. There is a large amount of stool in the colon. There is no overt bowel obstruction. There is a suprapubic catheter in the bladder and the bladder is decompressed. Dictated by: Dictated on workstation # [id number]
[2020-12-08] MEDS ORDERED: LEVO500T80 PO (15:04)
[2020-12-08 15:19] VITALS: BP 128/84
== END 2020-12-08 15:19 | disposition home or self-care (01) ==
LOC: EDUNIT# 12:46 → ER 12:47
DX: N39.0 Urinary tract infection, site not specified (principal); I10 Essential (primary) hypertension; J44.9 Chronic obstructive pulmonary disease, unspecified; G20 Parkinson's disease; E11.9 Type 2 diabetes mellitus without complications; Z91.041 Radiographic dye allergy status
CPT/HCPCS: 36415; 74176; 80053; 81000; 85025; 87077; 87088; 87186

== ENCOUNTER 2020-12-18 16:47 | Observation (INO) | payer MEDICARE, OTHER ==
[~2020-12-18] VITALS: Ht 193 cm; Wt 90.7 kg
[~2020-12-18 16:47] MED LIST changes: +LEVO500T80 PO
[2020-12-18] MEDS ORDERED: TETANUS,DIPTH,PERTUSS P/F (BOOSTRIX) 0.5 ML VIAL IM ONE (17:00)
--- NOTE | 2020-12-18 17:04 | ED Fall/Injury ---
General Stated Complaint: FELL Source: patient Exam Limitations: other (Dementia) (IWONA MONTOYA MD) History of Present Illness Date Seen by Provider: December 18, 2020 Time Seen by Provider: 16:50 Initial Comments Patient here by EMS after fall at [facility]. Patient is on the Alzheimer's unit. Unwitnessed fall. Patient states he fell back and hit his head on the concrete. No report of loss of consciousness. Has skin tears to bilateral elbows and abrasion to the posterior scalp. Bleeding controlled at all sites. Patient denies any other pain but did report some neck pain when palpated. Unknown tetanus status. Occurred: just prior to arrival (Approximately 30 minutes ago) Severity: mild Injuries/Pain Location: head, upper extremity Context: unknown Loss of Consciousness: no loss of consciousness Associated Symptoms (Fall): No Chest Pain; Confusion (Baseline dementia but answers questions appropriately and follows commands), Headache; No Muscle Spasms, No Nausea/Vomiting; Neck Pain (IWONA MONTOYA MD) Allergies and Home Medications Allergies Coded Allergies: Iodine and Iodide Containing Produc (Verified Allergy, Unknown, 09/06/20) Home Medications Cefuroxime Axetil 500 Mg Tablet, 500 MG PO BID Prescribed by: NIKKI RAINEY on 09/17/20 0523 Levofloxacin 500 Mg Tablet, 500 MG PO DAILY Prescribed by: ALEXA KEYS on 12/08/20 1504 Patient Home Medication List Home Medication List Reviewed: Yes (IWONA MONTOYA MD) Review of Systems Review of Systems Constitutional: see HPI; No chills, No fever Eyes: No Symptoms Reported Ears, Nose, Mouth, Throat: no symptoms reported Respiratory: No cough, No short of breath Cardiovascular: No chest pain, No edema Gastrointestinal: no symptoms reported Musculoskeletal: joint pain, neck pain Skin: change in color, lesions Psychiatric/Neurological: Headache, Pre-Existing Deficit (IWONA MONTOYA MD) Past Bckmuon-Hxlmlp-Uxzbvn Hx Past Med/Social Hx: Reviewed Nursing Past Med/Soc Hx (IWONA MONTOYA MD) Patient Social History Alcohol Use: Denies Use Type Used: Smokeless Tobacco 2nd Hand Smoke Exposure: No Recent Hopitalizations: No (IWONA MONTOYA MD) Immunizations Up To Date Tetanus Booster (TDap): Unknown (IWONA MONTOYA MD) Seasonal Allergies Seasonal Allergies: No (IWONA MONTOYA MD) Past Medical History Surgeries: Yes (RIGHT FOOT--ALL TOES AMPUTATED. PARTIAL AMPUTATION LEFT GREAT TOE) Amputation, Orthopedic Respiratory: Yes (COVID-19 INFECTION) Pneumonia, COPD Cardiac: Yes High Cholesterol, Hypertension Neurological: Yes (DEMENTIA WITH BEHAVIOR DISTURBANCE) Dementia, Neuropathy, Parkinson's Disease, Seizure Disorder Genitourinary: Yes Prostate Problems, Bladder Infection, Kidney Stones Gastrointestinal: Yes Gastroesophageal Reflux, Chronic Constipation Musculoskeletal: Yes Amputee, Arthritis, Fibromyalgia Endocrine: Yes Diabetes, Insulin dep HEENT: Yes (NOSEBLEEDS) Hearing Impairment: Hard of Hearing Cancer: No Psychosocial: Yes (DEMENTIA WITH BEHAVIOR DISTURBANCE) Sleep Difficulties, Depression Integumentary: No Blood Disorders: No (IWONA MONTOYA MD) Family Medical History Reviewed Nursing Family Hx (IWONA MONTOYA MD) Physical Exam Vital Signs Vital Signs - First Documented 12/18/20 16:47 Temp 37.1 Pulse 76 Resp 16 B/P (MAP) 137/70 (92) Pulse Ox 99 O2 Delivery Room Air (CHRISTOS CASILLAS) Vital Signs Capillary Refill : (IWONA MONTOYA MD) Height, Weight, BMI Height: '" Weight: lbs. oz. kg; 24.00 BMI Method: General Appearance: WD/WN, no apparent distress HEENT: PERRL/EOMI, TMs normal Neck: full range of motion, supple, tender lateral (Bilateral mild) Cardiovascular: regular rate, rhythm, no murmur Respiratory: lungs clear, normal breath sounds Gastrointestinal: non tender, soft Extremities: normal range of motion, no pedal edema, other (Able to move bilateral upper extremities without difficulty. Skin tears to both elbows that are covered with dressing and bleeding is controlled.) Neurologic/Psychiatric: alert, other (Alert to person and place.) Skin: warm/dry, other (1.5 cm abrasion posterior scalp bald spot. Superficial and not amiable to suturing or axel.) (IWONA MONTOYA MD) [place] Coma Score Best Eye Response: (4) Open Spontaneously Best Verbal Response: (5) Oriented Best Motor Response: (6) Obeys Commands (IWONA MONTOYA MD) Procedures/Interventions Suture Size: 4-0 (IWONA MONTOYA MD) Progress/Results/Core Measures Results/Orders Medications Given in ED Current Medications Medications Dose Ordered Sig/Chana Route Start Time Stop Time Status Last Admin Dose Admin Diphtheria/ Tetanus/Acell Pertussis 0.5 ml ONCE ONCE IM 12/18/20 17:00 12/18/20 17:01 DC 12/18/20 17:05 0.5 ML (CHRISTOS CASILLAS) Vital Signs/I&O 12/18/20 16:47 Temp 37.1 Pulse 76 Resp 16 B/P (MAP) 137/70 (92) Pulse Ox 99 O2 Delivery Room Air (CHRISTOS CASILLAS) Progress Progress Note : Progress Note Seen and evaluated. Wounds cleaned by nursing and dressed. CT head and neck ordered. Tetanus updated. Monitor patient. (IWONA MONTOYA MD) Progress Note : Time: 19:36 Progress Note Assumed care of the patient at shift change. He is pleasant, alert and oriented times person and place. The wound seems to be hemostatic on the back of his head with a Steri-Strip. He has gotten a tetanus vaccine. We discussed since he is not a good candidate for any kind of neuro interventional surgery just d oing a CT in the morning with a short observation stay with local surgery for prognosis sake and the patient is okay with this plan. We have updated the [facility]. (CHRISTOS CASILLAS) Diagnostic Imaging Diagonstic Imaging: CT Plain Films/CT/US/NM/MRI: head Comments Focal hyperdensities within the lateral aspect of the right basal ganglia. Favored to relate to calcifications, possibly from prior injury or ischemia. Harshly calcified mass lesion, including a vascular malformation is felt less likely. Given the focal hyperdensities at this location, recent intraparenchymal hemorrhage not completely excluded though felt less likely. Comparison to prior imaging is recommended. If further evaluation is desired, MRI of the brain versus follow-up CT imaging of the brain could be obtained. No acute osseous abnormality within the cervical spine with mild to moderate multilevel degenerative changes. Reviewed: Reviewed by Me (CHRISTOS CASILLAS) Departure Communication (Admissions) Time/Spoke to Admitting Phy: 19:30 Discussed the case with Dr. Rodríguez and he is resume all home meds except for the Eliquis and will get a CT in the morning without contrast of the head. (CHRISTOS CASILLAS) Impression Primary Impression: Fall Qualified Codes: W19.XXXA - Unspecified fall, initial encounter Additional Impressions: Head injury due to trauma Qualified Codes: S09.90XA - Unspecified injury of head, initial encounter Occipital scalp laceration Qualified Codes: S01.01XA - Laceration without foreign body of scalp, initial encounter Possible intraparenchymal hemorrhage Disposition: ADMITTED INPATIENT Condition: Stable Admissions Decision to Admit Reason: Admit from ER (Trauma) Decision to Admit/Date: December 18, 2020 Time/Decision to Admit Time: 19:30 (CHRISTOS CASILLAS) Departure-Patient Inst. Referrals: LEANDRA JORDAN DO (PCP/Family) Primary Care Physician IWONA MONTOYA MD December 18, 2020 17:03 CHRISTOS CASILLAS December 18, 2020 19:46
--- NOTE | 2020-12-18 18:24 | Diagnostic Imaging Report ---
PROCEDURE: CT head and CT cervical spine without contrast. TECHNIQUE: Multiple contiguous axial images were obtained through the brain and cervical spine without the use of intravenous contrast. Sagittal and coronal reformations through the cervical spine were then performed. Auto Exposure Controls were utilized during the CT exam to meet ALARA standards for radiation dose reduction. INDICATION: Trauma, fall. COMPARISON: None available FINDINGS: Mild atrophy. Hyperdensities are identified within the peripheral aspect of the right basal ganglia. Calcifications are identified along the interhemispheric falx, particularly on the left. No additional intracranial hemorrhage. No midline shift, uncal herniation, obstructive hydrocephalus, or suspicious extra-axial fluid collection. Soft tissue swelling and injury is noted involving the midline posterior scalp, particularly superiorly. No underlying calvarial fracture. Bilateral ocular lenses are absent. Otherwise, the orbits are unremarkable. Mucosal thickening and fluid within some posterior left ethmoidal air cells. Chronic medial deviation of the right lamina papyracea. Alignment of the cervical spine is well maintained without significant anterolisthesis or retrolisthesis. Alignment of the atlantooccipital joint is well maintained. Vertebral body heights are well-maintained. Mild disc space height loss at C6-C7 and C7-T1. No acute fracture or dislocation. No destructive osseous process. Scattered facet joint degenerative changes and uncovertebral joint hypertrophy are present. No apical pneumothorax. Mild scattered vascular calcifications. Otherwise, the paraspinal soft tissues are unremarkable. IMPRESSION: Focal hyperdensities within the lateral aspect of the right basal ganglia. These are favored to relate to calcifications, possibly from prior injury or ischemia. Partially calcified mass lesion, including a vascular malformation is felt less likely. Given focal hyperdensities at this location, recent intraparenchymal hemorrhage not completely excluded though felt less likely. Comparison to prior imaging is recommended. If further evaluation is desired, MRI of the brain versus follow-up CT imaging of the brain could be obtained. No acute osseous abnormality within the cervical spine with [id number] multilevel degenerative changes. Soft tissue injury involving the posterior midline scalp without underlying calvarial fracture. Report given to Que Puente APRN and faxed to ER doctor at 6:20 PM 12/18/2020/cb Dictated by: Dictated on workstation # [id number]
[2020-12-18 20:24] VITALS: BP 148/76
[2020-12-18] MEDS ORDERED: ACETAMINOPHEN 325 MG TABLET PO PRN (20:30)
[2020-12-18] MEDS ORDERED: CATHETER FLUSH 10 ML SYR IV PRN (20:30)
[2020-12-18] MEDS ORDERED: ONDANSETRON 4 MG/2 ML (SDV) Z0FRAN IV PRN (20:30)
[2020-12-18] MEDS: inSUlin ASPART (NovoLOG) 1 UNIT/0.01 ML (CHARGE PER UNIT) SC SCH (21:14)
[2020-12-18] MEDS: CATHETER FLUSH 10 ML SYR IV SCH (22:00)
--- NOTE | 2020-12-18 23:19 | HISTORY AND PHYSICAL ---
DATE OF SERVICE: ADMITTING PRIMARY CARE PHYSICIAN: Dr. Potts. HISTORY OF PRESENT ILLNESS: The patient is a 75-year-old male who is a resident of a group home in the Alzheimer's unit. Staff reports and underwent a witnessed fall; however, the patient states that he fell back and hit his head. He did not report any loss of consciousness. He did have some abrasions of his elbows as well as the posterior scalp. He does not report any visual changes as well as no focal deficits. His [place] coma scale was 13. A CT scan of the head was performed, which did show hyperdensity along the right basal ganglia, which favors calcifications from prior injury or ischemia; however, followup imaging was recommended. PAST MEDICAL HISTORY: Dementia, neuropathy, Parkinson's disease, seizure disorder, chronic urinary tract infection, history of nephrolithiasis, gastroesophageal reflux disease, constipation, degenerative joint disease, fibromyalgia, diabetes, depression. 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 ALLERGIES: IODINE. MEDICATIONS: Cefuroxime 500 mg b.i.d., levofloxacin 500 mg daily. SOCIAL HISTORY: Previous smokeless tobacco, negative alcohol. FAMILY HISTORY: Noncontributory. VITAL SIGNS: Temperature 37.1, blood pressure 137/70, pulse 76, respirations 16, pulse ox 99% on room air. REVIEW OF SYSTEMS: Well-nourished male currently in no acute distress. He does answer majority of questions appropriately; however, is confused from his history of dementia and Alzheimer's disease. He does not report any shortness of breath or difficulty in breathing. No chest pain, palpitations, diaphoresis. No nausea, vomiting with history of constipation. He does not report any headache or any visual changes as well as no focal deficits. No fever, chills, no recent inadvertent weight loss. All other review of systems negative. PHYSICAL EXAMINATION: CHEST: Few scattered rales bilaterally. HEART: Regular, no murmurs. EXTREMITIES: No lower extremity edema, negative Homans sign. HEENT: No scleral icterus. NECK: No cervical lymphadenopathy. ABDOMEN: Soft, nontender, nondistended. NEUROLOGIC: Moves all four extremities purposefully upon command. Opens eyes spontaneously and verbalizes; however, slightly confused; however, this likely is his baseline. [place] coma scale 13. ASSESSMENT AND PLAN: A 75-year-old male with same level fall with abrasions of bilateral elbows as well as laceration of the posterior scalp. CT scan of the head did show a hyperdensity along the lateral aspect of the right basal ganglia, which favors calcifications from previous injury or ischemia. We will admit him for observation, proceed with serial neurologic examinations as well as a repeat CT scan tomorrow. If no changes were identified and his neurologic status is stable with no changes, we will transfer him back to his extended care facility. Job ID: [id number] DocumentID: [id number] Dictated Date: 12/18/2020 22:41:47 Inseminator Date: 12/18/2020 23:18:46 Dictated By: SUDHIR VASQUEZ MD MTDD
[2020-12-19] VITALS: BP 109/62
[2020-12-19 04:00] VITALS: BP 127/74
[2020-12-19] MEDS: inSUlin ASPART (NovoLOG) 1 UNIT/0.01 ML (CHARGE PER UNIT) SC SCH ×2 (05:09→11:22)
[2020-12-19] MEDS: CATHETER FLUSH 10 ML SYR IV SCH (06:16)
[2020-12-19 08:23] VITALS: BP 140/67
--- NOTE | 2020-12-19 10:03 | Progress Note ---
Subjective Date Seen by a Provider: December 19, 2020 Time Seen by a Provider: 09:50 Subjective/Events-last exam Patient seen with Dr. Rodríguez. RN reports patient uncooperative due to dementia and keeps trying to get out of bed and get up. Patient pulled out IV right before entering room. Patient oriented to person, but not place or time. He does report he has a headache and does recall falling and hitting his head. Objective Exam Vital Signs Date Time Temp Pulse Resp B/P (MAP) Pulse Ox O2 Delivery O2 Flow Rate FiO2 12/19/20 08:23 35.9 60 18 140/67 (91) 98 Room Air 12/19/20 08:00 98 Room Air 12/19/20 04:00 37.0 59 18 127/74 (91) 100 Room Air 12/19/20 01:22 Room Air 12/19/20 00:00 37.0 75 18 109/62 (78) 100 Room Air 12/18/20 20:24 37.0 63 18 148/76 (100) 100 Room Air 12/18/20 20:10 37.1 64 18 140/56 98 Room Air 12/18/20 16:47 37.1 76 16 137/70 (92) 99 Room Air I & O 12/19/20 07:00 Intake Total 400 ml Output Total 1150 ml Balance -750 ml Capillary Refill : Less Than 3 Seconds General Appearance: No Apparent Distress, WD/WN Neck: Normal Inspection, Supple Respiratory: No Accessory Muscle Use, No Respiratory Distress Cardiovascular: Regular Rate, Rhythm, No Edema Gastrointestinal: normal bowel sounds, non tender, soft Extremity: Normal Inspection, Normal Range of Motion Neurologic/Psychiatric: Alert, Other (Patient confused but has dementia) Skin: Normal Color, Warm/Dry, Other (Posterior scalp laceration with steri- strip in place. Tender to palpation. Bilateral elbow abrasions.) Results Lab Laboratory Tests 12/18/20 20:58: Glucometer 85 12/19/20 04:48: Glucometer 87 Assessment/Plan Assessment/Plan Assess & Plan/Chief Complaint A 75-year-old male with same level fall with abrasions of bilateral elbows as well as laceration of the posterior scalp, Alzheimer dementia VSS Tolerating diet Continue medical management Awaiting CT results and if unchanged, then patient can be DC'd back to facility that he resides at. JOCY KENNEY APRN December 19, 2020 10:03
--- NOTE | 2020-12-19 10:08 | Discharge Inst-Surgical ---
D/C Lap Instructions-GISELLEO Reconcile Patient Problems Problems Reviewed?: Yes Follow Up Appt as needed Activity as tolerated Regular Diet Symptoms to Report: Fever over 101 degree F, Nausea/Vomiting Infection Signs and Symptoms to report: Increased redness, Foul odor of wound, Increased drainage Bathing instructions: May shower Operative Area Clean/Dry; Keep incision clean/dry If any problems/questions: Contact your physician or go to Emergency Room JOCY KENNEY APRN December 19, 2020 10:08
--- NOTE | 2020-12-19 10:37 | Diagnostic Imaging Report ---
PROCEDURE: CT head without contrast. TECHNIQUE: Multiple contiguous axial images were obtained through the brain without the use of intravenous contrast. Auto Exposure Controls were utilized during the CT exam to meet ALARA standards for radiation dose reduction. DATE: December 19, 2020. COMPARISON: CT head and cervical spine December 18, 2020. INDICATION: 75-year-old male, head injury. Follow-up exam. FINDINGS: There is no identified skull fracture. There is soft tissue swelling of the occipital and parietal scalp compatible with soft tissue contusion/small hematoma. There is proportional prominence of the ventricles and additional CSF spaces consistent with mild cerebral volume loss. There are areas of very high attenuation in the region of the right insula which are likely areas of calcification. There is no abnormal extra-axial fluid collection. There is no convincing acute intracranial hemorrhage. There is no mass effect or midline shift. IMPRESSION: 1. Areas of high attenuation in the region of the right insula most likely calcified and likely relates to sequela of prior insult rather long-standing process. 2. No convincing evidence of acute intracranial hemorrhage or other acute intracranial abnormality. 3. Mild cerebral volume loss. Dictated by: Dictated on workstation # [id number]
[2020-12-19 11:12] VITALS: BP 128/69
== END 2020-12-19 11:17 ==
LOC: EDUNIT# 16:47 → ER 16:49 → 4TH 19:30 → UNDOADMOB 19:30 → 4TH 20:24 → UNDODISOB 12-19 13:31
PROVIDERS: ADMIT Surgery; ATTEND Surgery
DX: S50.312A Abrasion of left elbow, initial encounter (principal); S50.311A Abrasion of right elbow, initial encounter; S01.01XA Laceration without foreign body of scalp, initial encounter; S09.90XA Unspecified injury of head, initial encounter; G30.9 Alzheimer's disease, unspecified; F02.80 Dementia in other diseases classified elsewhere, unspecified severity, without behavioral disturbance, psychotic disturbance, mood disturbance, and anxiety; J44.9 Chronic obstructive pulmonary disease, unspecified; I10 Essential (primary) hypertension; E78.00 Pure hypercholesterolemia, unspecified; K21.9 Gastro-esophageal reflux disease without esophagitis; E11.40 Type 2 diabetes mellitus with diabetic neuropathy, unspecified; M19.90 Unspecified osteoarthritis, unspecified site; F32.9 Major depressive disorder, single episode, unspecified; Z79.899 Other long term (current) drug therapy; W18.30XA Fall on same level, unspecified, initial encounter
CPT/HCPCS: 70450 ×2; 72125; 82947 ×2; 90471; 99284; G0378; 90715

== ENCOUNTER → 2020-12-25 | Outpatient (CLI) | payer BC, OTHER | LOC: CARD 09:00 | PROVIDERS: ATTEND Internal Medicine Cardiovascular Disease | DX: I10 Essential (primary) hypertension (principal); I35.1 Nonrheumatic aortic (valve) insufficiency; I25.10 Atherosclerotic heart disease of native coronary artery without angina pectoris | CPT/HCPCS: 93306 ==

== ENCOUNTER 2021-02-18 08:41 | Emergency (ER) | payer BC, MEDICAID, MEDICARE, OTHER ==
[~2021-02-18] VITALS: Ht 190.5 cm; Wt 100.0 kg
[2021-02-18] MEDS ORDERED: NS IV 1000 ML 1,000 ML ONE (09:17)
--- NOTE | 2021-02-18 09:22 | ED GU-Male ---
General Chief Complaint: - Urinary Stated Complaint: BLOOD IN CATHETER Nursing Triage Note: Pt to ED from detention. Aid with pt reports pt has blood in urine. Pt has suprapubic catheter with leg bag in place. Leg bag is full of blood. Aid reports symptoms were first noted last night. Pt denies pain. Pt has urology appt tomorrow. Pt had UA at [facility] lab today. Source: patient, RN/MD, detention records Exam Limitations: clinical condition (Dementia) History of Present Illness Date Seen by Provider: Feb 18, 2021 Time Seen by Provider: 08:50 Initial Comments Patient to the ER by private conveyance from [facility] with chief complaint of noticing yudi blood in the urine. He has a leg bag and suprapubic catheter pursuant to ureteral stricture and urinary retention historically. He has a history of prostatic cancer. He also has history of Parkinson's and Alzheimer's and does not contribute meaningfully to his history. He states he has pain all over. No fevers or chills. No nausea or vomiting today. Allergies and Home Medications Allergies Coded Allergies: Iodine and Iodide Containing Produc (Verified Allergy, Unknown, 09/06/20) Home Medications Cefuroxime Axetil 500 Mg Tablet, 500 MG PO BID Prescribed by: NIKKI RAINEY on 09/17/20 0581 Levofloxacin 500 Mg Tablet, 500 MG PO DAILY Prescribed by: ALEXA KEYS on 12/08/20 1504 Patient Home Medication List Home Medication List Reviewed: Yes Review of Systems Review of Systems Constitutional: No chills, No diaphoresis EENTM: No ear discharge, No ear pain Respiratory: No cough, No short of breath Cardiovascular: No chest pain, No edema Gastrointestinal: No abdominal pain, No nausea, No vomiting Genitourinary: see HPI; denies discharge, denies dysuria; hematuria Musculoskeletal: No back pain, No joint pain Skin: No pruritus, No rash Psychiatric/Neurological: Denies Headache, Denies Numbness All Other Systemes Reviewed Negative Unless Noted: Yes Past Ufhwpar-Hvwalf-Iunpyn Hx Patient Social History Tobacco Use?: No Substance use?: No Alcohol Use?: No Immunizations Up To Date Tetanus Booster (TDap): Unknown First/Initial COVID19 Vaccinat: 09/03/20 Second COVID19 Vaccination Ricardo: 09/24/20 COVID19 Vaccine 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 PARTIAL AMPUTATION LEFT GREAT TOE) Amputation, Orthopedic Respiratory: Yes (COVID-19 INFECTION) Pneumonia, COPD Cardiac: Yes High Cholesterol, Hypertension Neurological: Yes (DEMENTIA WITH BEHAVIOR DISTURBANCE) Dementia, Neuropathy, Parkinson's Disease, Seizure Disorder Genitourinary: Yes Prostate Problems, Bladder Infection, Kidney Stones Gastrointestinal: Yes Gastroesophageal Reflux, Chronic Constipation Musculoskeletal: Yes Amputee, Arthritis, Fibromyalgia Endocrine: Yes Diabetes, Insulin dep HEENT: Yes (NOSEBLEEDS) Hearing Impairment: Hard of Hearing Cancer: No Psychosocial: Yes (DEMENTIA WITH BEHAVIOR DISTURBANCE) Sleep Difficulties, Depression Integumentary: No Blood Disorders: No Physical Exam Vital Signs Vital Signs - First Documented 02/18/21 08:48 Temp 36.8 Pulse 60 Resp 15 B/P (MAP) 130/73 (92) Pulse Ox 100 O2 Delivery Room Air Capillary Refill : Less Than 3 Seconds Height, Weight, BMI Height: '" Weight: lbs. oz. kg; 27.00 BMI Method: General Appearance: WD/WN, no apparent distress HEENT: PERRL/EOMI, normal ENT inspection Neck: full range of motion, normal inspection Cardiovascular: normal peripheral pulses, regular rate, rhythm Respiratory: lungs clear, normal breath sounds, no respiratory distress, no accessory muscle use Gastrointestinal: normal bowel sounds, non tender, soft, no organomegaly Neurologic/Psychiatric: alert, normal mood/affect Skin: normal color, warm/dry Procedures/Interventions Suture Size: 4-0 Progress/Results/Core Measures Suspected Sepsis SIRS Temperature: Pulse: 60 Respiratory Rate: 15 Laboratory Tests 02/18/21 09:15: White Blood Count 6.3 Blood Pressure 130 /73 Mean: 92 Laboratory Tests 02/18/21 09:15: Creatinine 1.19, Platelet Count 225, Total Bilirubin 0.5 Results/Orders Lab Results Laboratory Tests Test 02/18/21 09:15 02/18/21 09:25 Range/Units White Blood Count 6.3 4.3-11.0 10^3/uL Red Blood Count 4.24 L 4.30-5.52 10^6/uL Hemoglobin 12.3 L 13.3-17.7 g/dL Hematocrit 39 L 40-54 % Mean Corpuscular Volume 91 80-99 fL Mean Corpuscular Hemoglobin 29 25-34 pg Mean Corpuscular Hemoglobin Concent 32 32-36 g/dL Red Cell Distribution Width 16.2 H 10.0-14.5 % Platelet Count 225 130-400 10^3/uL Mean Platelet Volume 10.3 9.0-12.2 fL Immature Granulocyte % (Auto) 0 % Neutrophils (%) (Auto) 50 42-75 % Lymphocytes (%) (Auto) 30 12-44 % Monocytes (%) (Auto) 9 0-12 % Eosinophils (%) (Auto) 9 0-10 % Basophils (%) (Auto) 1 0-10 % Neutrophils # (Auto) 3.2 1.8-7.8 10^3/uL Lymphocytes # (Auto) 1.9 1.0-4.0 10^3/uL Monocytes # (Auto) 0.6 0.0-1.0 10^3/uL Eosinophils # (Auto) 0.6 H 0.0-0.3 10^3/uL Basophils # (Auto) 0.1 0.0-0.1 10^3/uL Immature Granulocyte # (Auto) 0.0 0.0-0.1 10^3/uL Sodium Level 143 135-145 MMOL/L Potassium Level 4.0 3.6-5.0 MMOL/L Chloride Level 106 98-107 MMOL/L Carbon Dioxide Level 25 21-32 MMOL/L Anion Gap 12 5-14 MMOL/L Blood Urea Nitrogen 28 H 7-18 MG/DL Creatinine 1.19 0.60-1.30 MG/DL Estimat Glomerular Filtration Rate 60 BUN/Creatinine Ratio 24 Glucose Level 102 70-105 MG/DL Calcium Level 9.7 8.5-10.1 MG/DL Corrected Calcium 9.6 8.5-10.1 MG/DL Total Bilirubin 0.5 0.1-1.0 MG/DL Aspartate Amino Transf (AST/SGOT) 19 5-34 U/L Alanine Aminotransferase (ALT/SGPT) 14 0-55 U/L Alkaline Phosphatase 67 40-136 U/L Total Protein 7.5 6.4-8.2 GM/DL Albumin 4.1 3.2-4.5 GM/DL Urine Color RED H Urine Clarity CLOUDY Urine pH 8.5 5-9 Urine Specific [place] 1.010 L 1.016-1.022 Urine Protein 3+ H NEGATIVE Urine Glucose (UA) NEGATIVE NEGATIVE Urine Ketones 1+ H NEGATIVE Urine Nitrite POSITIVE H NEGATIVE Urine Bilirubin 3+ H NEGATIVE Urine Urobilinogen 4.0 < = 1.0 MG/DL Urine Leukocyte Esterase 3+ H NEGATIVE Urine RBC (Auto) 3+ H NEGATIVE Urine RBC TNTC H /HPF Urine WBC 25-50 H /HPF Urine Squamous Epithelial Cells NONE /HPF Urine Crystals PRESENT H /LPF Urine Triple Phosphate Crystals FEW H /LPF Urine Bacteria MODERATE H /HPF Urine Casts NONE /LPF Urine Mucus NEGATIVE /LPF Urine Culture Indicated YES My Orders Orders - CHRISTOS CASILLAS Cbc With Automated Diff (02/18/21 09:17) Comprehensive Metabolic Panel (02/18/21 09:17) Ua Culture If Indicated (02/18/21 09:17) Ed Iv/Invasive Line Start (02/18/21 09:17) Ns Iv 1000 Ml (Sodium Chloride 0.9%) (02/18/21 09:30) Ns Iv 1000 Ml (Sodium Chloride 0.9%) (02/18/21 09:17) Ceftriaxone (Rocephin) (02/18/21 09:30) Urine Culture (02/18/21 09:25) Medications Given in ED Current Medications Medications Dose Ordered Sig/Chana Route Start Time Stop Time Status Last Admin Dose Admin Ceftriaxone Sodium 1000 mg/ Sterile Water 10 ml @ 200 mls/hr ONCE ONCE IV 02/18/21 09:30 02/18/21 09:32 DC 02/18/21 09:54 200 MLS/HR Vital Signs/I&O 02/18/21 08:48 Temp 36.8 Pulse 60 Resp 15 B/P (MAP) 130/73 (92) Pulse Ox 100 O2 Delivery Room Air Capillary Refill : Less Than 3 Seconds Blood Pressure Mean: 92 Progress Note : Time: 09:22 Progress Note Check some basic labs and urinalysis. Will change the leg bag. Suspect he has a infection. A liter of saline as he has some soft blood pressure and a gram of Rocephin. Departure Impression Primary Impression: Catheter-associated urinary tract infection Qualified Codes: T83.511A - Infection and inflammatory reaction due to indwelling urethral catheter, initial encounter; N39.0 - Urinary tract infection, site not specified Disposition: 01 HOME, SELF-CARE Condition: Stable Departure-Patient Inst. Decision time for Depature: 11:33 Referrals: LEANDRA JORDAN DO (PCP/Family) Primary Care Physician Patient Instructions: Urinary Tract Infection, Adult (DC), How to Prevent Catheter Associated Urinary Tract Infections Add. Discharge Instructions: Encourage more fluids to drink. Rocephin 1 g with 2.1 mL of 1% lidocaine IM daily for the next 3 days. Return to the ER for worsening symptoms/sepsis. Follow-up next week with primary care. Change suprapubic catheter in 24 hours. All discharge instructions reviewed with patient and/or family. Voiced understanding. Scripts [lidocaine] % No Conflict Check 2.1 ML IM DAILY for 3 Days, #20 ML 0 Refills Prov: CHRISTOS CASILLAS 02/18/21 [rocephin] No Conflict Check 1 GM IM DAILY for 3 Days, #3 GM 0 Refills Prov: CHRISTOS CASILLAS 02/18/21 Copy Copies To 1: LEANDRA JORDAN TITUS J Feb 18, 2021 09:22
[2021-02-18 09:29] LABS: BASOPHILS # (AUTO) 0.1 10^3/uL (0.0-0.1); BASOPHILS % (AUTO) 1 % (0-10); EOSINOPHILS # (AUTO) 0.6 10^3/uL (0.0-0.3); EOSINOPHILS % (AUTO) 9 % (0-10); HEMATOCRIT 39 % (40-54); HEMOGLOBIN 12.3 g/dL (13.3-17.7); LYMPHOCYTES # (AUTO) 1.9 10^3/uL (1.0-4.0); LYMPHOCYTES % (AUTO) 30 % (12-44); MEAN CORPUSCULAR HEMOGLOBIN 29 pg (25-34); MEAN CORPUSCULAR HGB CONC 32 g/dL (32-36); MEAN CORPUSCULAR VOLUME 91 fL (80-99); MEAN PLATELET VOLUME 10.3 fL (9.0-12.2); MONOCYTES # (AUTO) 0.6 10^3/uL (0.0-1.0); MONOCYTES % (AUTO) 9 % (0-12); NEUTROPHILS # (AUTO) 3.2 10^3/uL (1.8-7.8); NEUTROPHILS % (AUTO) 50 % (42-75); PLATELET COUNT 225 10^3/uL (130-400); WHITE BLOOD COUNT 6.3 10^3/uL (4.3-11.0)
[2021-02-18] MEDS ORDERED: cefTRIAXone 1,000 MG in WATER (STERILE) FOR INJECTION 10 ML IV ONE (09:30)
[2021-02-18] MEDS ORDERED: NS IV 1000 ML 1,000 ML IV SCH (09:30)
[2021-02-18 09:35] LABS: BILIRUBIN,URINE 3+ (NEGATIVE); CLARITY,URINE CLOUDY; GLUCOSE, URINE (UA) NEGATIVE (NEGATIVE); KETONES,URINE 1+ (NEGATIVE); LEUKOCYTE ESTERASE ,URINE 3+ (NEGATIVE); PH,URINE 8.5 (5-9); PROTEIN,URINE 3+ (NEGATIVE)
[2021-02-18 09:39] LABS: ALBUMIN 4.1 GM/DL (3.2-4.5)
[2021-02-18 09:40] LABS: CALCIUM 9.7 MG/DL (8.5-10.1)
[2021-02-18 09:42] LABS: TOTAL PROTEIN 7.5 GM/DL (6.4-8.2)
[2021-02-18 09:43] LABS: BILIRUBIN,TOTAL 0.5 MG/DL (0.1-1.0)
[2021-02-18 09:45] LABS: CREATININE SERUM 1.19 MG/DL (0.60-1.30)
[2021-02-18 09:51] LABS: NITRITE,URINE POSITIVE (NEGATIVE)
[2021-02-18 09:54] LABS: BACTERIA,URINE MODERATE /HPF; RBC,URINE TNTC /HPF; WBC,URINE 25-50 /HPF
[2021-02-18 09:55] LABS: TRIPLE PHOSPHATE CRYSTAL,UR FEW /LPF
[2021-02-18 09:56] LABS: COLOR,URINE RED
[2021-02-18] MEDS ORDERED: rocephin IM (11:35)
[2021-02-18] MEDS ORDERED: lidocaine IM (11:35)
[2021-02-18 11:56] VITALS: BP 125/71
== END 2021-02-18 12:08 | disposition home or self-care (01) ==
LOC: EDUNIT# 08:41 → ER 08:42
DX: T83.511A Infection and inflammatory reaction due to indwelling urethral catheter, initial encounter (principal); N39.0 Urinary tract infection, site not specified; J44.9 Chronic obstructive pulmonary disease, unspecified; I10 Essential (primary) hypertension; G20 Parkinson's disease; G30.9 Alzheimer's disease, unspecified; F02.80 Dementia in other diseases classified elsewhere, unspecified severity, without behavioral disturbance, psychotic disturbance, mood disturbance, and anxiety; E11.9 Type 2 diabetes mellitus without complications; Z85.46 Personal history of malignant neoplasm of prostate
CPT/HCPCS: 36415; 80053; 81000; 85025; 87077; 87088; 87186

== ENCOUNTER 2021-03-26 18:40 | Inpatient (IN) | payer MEDICARE, MEDICAID ==
[~2021-03-26] VITALS: Ht 177 cm; Wt 82.7 kg
[~2021-03-26 18:40] MED LIST changes: +lidocaine IM; +rocephin IM
--- NOTE | 2021-03-26 19:58 | ED General ---
General Chief Complaint: - Urinary Stated Complaint: FEVER, FATIGUE Source of Information: Patient Exam Limitations: No Limitations (ALEXA KEYS APRN) Source of Information: Patient (FAROOQ LOVING) History of Present Illness Date Seen by Provider: Mar 26, 2021 Time Seen by Provider: 19:58 (ALEXA KEYS APRN) Initial Comments Pt presents [facility] ED [facility] with complaint of decreasing mental status. food service aide is present. He is a poor historian with multiple comorbid conditions including Alzheimers, Parkinsons, and metabolic encephalopathy. He is able to state his name, states he is in a hospital in [place], and unable to state todays date. Per nursing clerk, his condition was worsening since about 3pm today and his suprapubic catheter has been producing concentrated, foul-smelling urine. He does not verbalize any complaints of pain, N/V, SOB. Timing/Duration: 4-6 Hours Severity: Moderate Associated Systoms: No Chest Pain, No Cough, No Fever/Chills, No Headaches, No Nausea/Vomiting, No Shortness of Air (FAROOQ LOVING) Allergies and Home Medications Allergies Coded Allergies: Iodine and Iodide Containing Produc (Verified Allergy, Unknown, 09/06/20) Home Medications Cefuroxime Axetil 500 Mg Tablet, 500 MG PO BID Prescribed by: NIKKI RAINEY on 09/17/20 0523 Levofloxacin 500 Mg Tablet, 500 MG PO DAILY Prescribed by: ALEXA KEYS on 12/08/20 1504 [lidocaine] % , 2.1 ML IM DAILY Prescribed by: CHRISTOS CASILLAS on 02/18/21 1135 [rocephin] , 1 GM IM DAILY Prescribed by: CHRISTOS CASILLAS on 02/18/21 1135 Patient Home Medication List Home Medication List Reviewed: Yes (FAROOQ LOVING) Review of Systems Review of Systems Constitutional: No chills, No fever; weakness EENTM: No hearing loss, No vision loss Respiratory: No cough, No hemoptysis, No short of breath Cardiovascular: No chest pain, No palpitations Gastrointestinal: No abdominal pain, No constipation, No diarrhea Genitourinary: No dysuria, No frequency, No hematuria; other (suprapubic catheter in place) Musculoskeletal: No back pain, No joint pain Skin: No change in color, No change in hair/nails Psychiatric/Neurological: Numbness, Pre-Existing Deficit (history of dementia, decrease in mental status per nursing) (FAROOQ LOVING STUDENT) All Other Systems Reviewed Negative Unless Noted: Yes (FAROOQ LOVING STUDENT) Past Jvuadwe-Txejkh-Zlmjwt Hx Immunizations Up To Date Tetanus Booster (TDap): Unknown (ALEXA KEYS APRN) Seasonal Allergies Seasonal Allergies: No (ALEXA KEYS APRN) Past Medical History Surgeries: Yes (RIGHT FOOT--ALL TOES AMPUTATED. PARTIAL AMPUTATION LEFT GREAT TOE) Amputation, Orthopedic Respiratory: Yes (COVID-19 INFECTION) Pneumonia, COPD Cardiac: Yes High Cholesterol, Hypertension Neurological: Yes (DEMENTIA WITH BEHAVIOR DISTURBANCE) Dementia, Neuropathy, Parkinson's Disease, Seizure Disorder Genitourinary: Yes Prostate Problems, Bladder Infection, Kidney Stones Gastrointestinal: Yes Gastroesophageal Reflux, Chronic Constipation Musculoskeletal: Yes Amputee, Arthritis, Fibromyalgia Endocrine: Yes Diabetes, Insulin dep HEENT: Yes (NOSEBLEEDS) Hearing Impairment: Hard of Hearing Cancer: No Psychosocial: Yes (DEMENTIA WITH BEHAVIOR DISTURBANCE) Sleep Difficulties, Depression Integumentary: No Blood Disorders: No (ALEXA KEYS APRN) Physical Exam Vital Signs Capillary Refill : (ALEXA KEYS APRN) Height, Weight, BMI Height: '" Weight: lbs. oz. kg; 27.00 BMI Method: (ALEXA KEYS APRN) General Appearance: Chronically ill, Other (lethargic, no apparent distress, oriented to self, disoriented to place/time) Eyes: Left Eye Other (L facial droop/ptosis, new per nursing clerk) HEENT: Pharynx Normal; No Moist Mucous Membranes (dry) Neck: Full Range of Motion, Normal Inspection, Non Tender, Supple Respiratory: Chest Non Tender, Lungs Clear, No Accessory Muscle Use, No Respiratory Distress, Decreased Breath Sounds Cardiovascular: No Murmur, Normal Peripheral Pulses, Bradycardia (50s), Other (trace edema BLE) Gastrointestinal: Normal Bowel Sounds, Soft, Tenderness (mild tenderness RUQ) Rectal: Deferred Back: Normal Inspection, No CVA Tenderness, No Vertebral Tenderness Extremity: Normal Capillary Refill, Normal Inspection, Normal Range of Motion, Non Tender, Other (trace edema BLE. pt unable to hold BUE up for >3sec, unable hold up BLE) Neurologic/Psychiatric: Depressed Affect, Disoriented (oriented to self, disori ented to place/time), Motor Weakness (1/5 svp marketing strength bilaterally, 2/5 BUE), Sensory Deficit (reports decreased sensation to L side of face, no motor/sensory loss to extremities. ) Skin: Warm/Dry Lymphatic: No Adenopathy ([facility]) Focused Exam Lactate Level 03/26/21 19:40: ([facility]) Lactic Acid Level Laboratory Tests Test 03/26/21 19:40 ([facility]) Procedures/Interventions Suture Size: 4-0 (ALEXA KEYS APRN) Progress/Results/Core Measures Suspected Sepsis SIRS Temperature: Pulse: Respiratory Rate: Laboratory Tests 03/26/21 19:40: White Blood Count 16.8H Blood Pressure / Mean: 03/26/21 19:40: Lactic Acid Level 0.93 Laboratory Tests 03/26/21 19:40: Creatinine 1.40H, INR Comment 1.5H, Platelet Count 233, Total Bilirubin 0.8 (ALEXA KEYS APRN) Results/Orders Lab Results Laboratory Tests Test 03/26/21 19:40 03/26/21 19:59 03/26/21 20:05 Range/Units White Blood Count 16.8 H 4.3-11.0 10^3/uL Red Blood Count 3.85 L 4.30-5.52 10^6/uL Hemoglobin 11.5 L 13.3-17.7 g/dL Hematocrit 35 L 40-54 % Mean Corpuscular Volume 92 80-99 fL Mean Corpuscular Hemoglobin 30 25-34 pg Mean Corpuscular Hemoglobin Concent 33 32-36 g/dL Red Cell Distribution Width 15.3 H 10.0-14.5 % Platelet Count 233 130-400 10^3/uL Mean Platelet Volume 10.4 9.0-12.2 fL Immature Granulocyte % (Auto) 1 % Neutrophils (%) (Auto) 82 H 42-75 % Lymphocytes (%) (Auto) 9 L 12-44 % Monocytes (%) (Auto) 9 0-12 % Eosinophils (%) (Auto) 0 0-10 % Basophils (%) (Auto) 0 0-10 % Neutrophils # (Auto) 13.7 H 1.8-7.8 10^3/uL Lymphocytes # (Auto) 1.4 1.0-4.0 10^3/uL Monocytes # (Auto) 1.5 H 0.0-1.0 10^3/uL Eosinophils # (Auto) 0.0 0.0-0.3 10^3/uL Basophils # (Auto) 0.1 0.0-0.1 10^3/uL Immature Granulocyte # (Auto) 0.1 0.0-0.1 10^3/uL Glucometer 136 H 70-110 MG/DL (FAROOQ LOVING MED STUDENT) Vital Signs/I&O Capillary Refill : (ALEXA KEYS APRN) Departure Communication (Admissions) Family Conversation NAME: JOSI ROMEO [facility] REC#: [id number] PT STATUS: REG ER : 1945 PHYSICIAN: ALEXA KEYS APRN ADMIT DATE: 03/26/21/ER Draft Date of Exam:03/26/21 CT ABDOMEN/PELVIS WO PROCEDURE: CT abdomen and pelvis without contrast. TECHNIQUE: Multiple contiguous axial images were obtained through the abdomen and pelvis without the use of intravenous contrast. Auto Exposure Controls were utilized during the CT exam to meet ALARA standards for radiation dose reduction. INDICATION: 76-year-old male, fever, fatigue, leukocytosis, abdominal pain. Prostate cancer. CORRELATION STUDY: 12/08/2020. FINDINGS: There is prominent attenuation over the lower chest and abdomen owing to patient's upper extremity in the [id number]. LOWER THORAX: Heart size enlarged. Scattered calcified granulomas. No significant basilar infiltrate with minimal basilar atelectasis. LIVER: No definitive focal lesion on unenhanced and partially obscured evaluation. GALLBLADDER: Mildly distended, otherwise unremarkable. SPLEEN: Calcified granulomas, otherwise unremarkable. PANCREAS: Unremarkable. ADRENAL GLANDS: 14 mm right adrenal gland nodule, stable. Coarse calcifications adjacent but separate from the left adrenal gland, stable. KIDNEYS: Right kidney generally stable. Left kidney is with slight prominent appearance of minimal perinephric stranding. Left kidney continues also with coarse calcifications and peripelvic cysts. Prominent appearance about the left renal pelvis overall appears slightly more prominent. Left ureter also slightly prominent and is proximal to the mid aspect. However, no definite calcification. Surgical clips anterior to the left kidney. ABDOMINAL AORTA: Moderate wall calcification, nonaneurysmal. A few shotty aortocaval lymph nodes. GASTROINTESTINAL TRACT: Moderate stool with the distal colonic fecal loading. No small bowel obstruction. No significant ascites or free air. URINARY BLADDER: Suprapubic catheter present with bladder decompressed. REPRODUCTIVE: Surgical clips within the prostate bed. Vasectomy clips also present. OSSEOUS STRUCTURES: Negative for acute abnormality. Grade 1 spondylolisthesis with nonacute pars articularis defect of L5 on S1. Some generalized increased density suggested. OTHER: None. IMPRESSION: 1. Rather extensive distal colonic fecal loading and impaction present. No small bowel obstruction. 2. Slightly more prominent left renal pelvis and proximal ureter without definitive obstructing calcification. Given slight haziness, correlate for potential urinary tract infection. Findings could also reflect perhaps recent passage of a stone. Dictated on workstation # [id number] Dict: 03/26/212126 Trans: 03/26/212147 [facility] [id number] Interpreted by: MALCOM BARBOSA DO Electronically signed by: [id number] have seen the patient along with Farooq medical student and agree with his assessment and the plan of care. Patient is lethargic, answers questions inappropriately. half-way staff from [facility] and rehabilitation are present and reports that this is not his usual behavior. He is much more sedate than usual. He does have a chronic suprapubic catheter indwelling. Historically this has grown out Proteus and E. coli sensitive to Rocephin that will be my empiric drug of choice along with Diflucan given the yeast. I do not find other source of infection. He remains hemodynamically stable with a heart rate of 49 sinus bradycardia oxygen 98% on room air and blood pressure 105/47. He does seem to have a fecal impaction on CT abdomen pelvis which I did looking for infectious etiology (he denies any abdominopelvic complaints and is nontender on exam). I will order a fleets enema for this upstairs. Per jail records he is full code. (ALEXA KEYS APRN) Impression Primary Impression: Urinary tract infection Disposition: ADMITTED INPATIENT Condition: Stable Admissions Decision to Admit Reason: Admit from ER (General) Decision to Admit/Date: Mar 26, 2021 Time/Decision to Admit Time: 21:46 (ALEXA KEYS APRN) Departure-Patient Inst. Referrals: LEANDRA JORDAN DO (PCP/Family) Primary Care Physician ALEXA KEYS APRN Mar 26, 2021 19:58 FAROOQ LOVING MED STUDENT Mar 26, 2021 20:19 CHRISTOS CASILLAS Mar 27, 2021 01:39
[2021-03-26 20:05] LABS: BASOPHILS # (AUTO) 0.1 10^3/uL (0.0-0.1); BASOPHILS % (AUTO) 0 % (0-10); EOSINOPHILS % (AUTO) 0 % (0-10); HEMATOCRIT 35 % (40-54); HEMOGLOBIN 11.5 g/dL (13.3-17.7); LYMPHOCYTES # (AUTO) 1.4 10^3/uL (1.0-4.0); LYMPHOCYTES % (AUTO) 9 % (12-44); MEAN CORPUSCULAR HEMOGLOBIN 30 pg (25-34); MEAN CORPUSCULAR HGB CONC 33 g/dL (32-36); MEAN CORPUSCULAR VOLUME 92 fL (80-99); MEAN PLATELET VOLUME 10.4 fL (9.0-12.2); MONOCYTES # (AUTO) 1.5 10^3/uL (0.0-1.0); MONOCYTES % (AUTO) 9 % (0-12); NEUTROPHILS # (AUTO) 13.7 10^3/uL (1.8-7.8); NEUTROPHILS % (AUTO) 82 % (42-75); PLATELET COUNT 233 10^3/uL (130-400); WHITE BLOOD COUNT 16.8 10^3/uL (4.3-11.0)
[2021-03-26] MEDS ORDERED: LACTATED RINGERS 1,000 ML IV SCH (20:15)
[2021-03-26 20:18] LABS: POTASSIUM 3.8 MMOL/L (3.6-5.0)
[2021-03-26 20:19] LABS: INR 1.5 (0.8-1.4)
[2021-03-26 20:21] LABS: BAND NEUTROPHILS 1 %; BASOPHILS % (MANUAL) 0 %; EOSINOPHILS % (MANUAL) 0 %; LYMPHOCYTES % (MANUAL) 6 %; MONOCYTES % (MANUAL) 9 %; NEUTROPHILS % (MANUAL) 81 %; REACTIVE LYMPHOCYTES 3 %; TOTAL PROTEIN 7.2 GM/DL (6.4-8.2)
[2021-03-26 20:22] LABS: ANISOCYTOSIS SLIGHT; BILIRUBIN,TOTAL 0.8 MG/DL (0.1-1.0); POIKILOCYTOSIS SLIGHT; ROULEAUX SLIGHT
[2021-03-26 20:24] LABS: CREATININE SERUM 1.4 MG/DL (0.60-1.30)
[2021-03-26 20:30] LABS: BILIRUBIN,URINE NEGATIVE (NEGATIVE); CLARITY,URINE CLOUDY; COLOR,URINE YELLOW; GLUCOSE, URINE (UA) NEGATIVE (NEGATIVE); KETONES,URINE NEGATIVE (NEGATIVE); LEUKOCYTE ESTERASE ,URINE 2+ (NEGATIVE); NITRITE,URINE NEGATIVE (NEGATIVE); PH,URINE >=9.0 (5-9); PROTEIN,URINE 2+ (NEGATIVE)
[2021-03-26 20:40] LABS: BACTERIA,URINE LARGE /HPF; CALCIUM OXALATE CRYSTALS,UR FEW /LPF; RBC,URINE 0-2 /HPF; YEAST,URINE FEW /HPF
--- NOTE | 2021-03-26 21:03 | Diagnostic Imaging Report ---
INDICATION: Sepsis. TECHNIQUE: Single view chest 8:12 PM. CORRELATION STUDY: None. FINDINGS: Patient slightly rotated. Given this, the heart size and mediastinum are unremarkable. Vasculature within normal limits. Lung nielson are symmetrically well-inflated and overall clear. IMPRESSION: Negative for acute abnormality of the chest. Dictated by: Dictated on workstation # [id number]
--- NOTE | 2021-03-26 21:30 | Diagnostic Imaging Report ---
PROCEDURE: CT head without contrast. TECHNIQUE: Multiple contiguous axial images were obtained through the brain without the use of intravenous contrast. Auto Exposure Controls were utilized during the CT exam to meet ALARA standards for radiation dose reduction. INDICATION: Fever, fatigue, leukocytosis. History of prostate cancer. CORRELATION STUDY: 12/19/2020 FINDINGS: Atrophic changes with prominence of the ventricles and sulci. Scattered areas of decreased attenuation likely owing to chronic small vessel ischemic disease. Asymmetric calcification of the right insular cortex. Prominent ossification along the mid to posterior falx as well. No intracranial hemorrhage. No midline shift or mass effect. No hyperdense intracranial vascular sign with presence of prominent intracranial vascular calcification particularly at the carotid siphons. Bony calvarium is intact. Visualized paranasal sinuses are generally clear. There are a few opacified posterior left ethmoid air cells. Prior lens replacement present. IMPRESSION: 1. Negative for acute intracranial abnormality. Generalized atrophic changes with likely changes reflecting small vessel ischemic disease. 2. Generally stable appearance about the calcification of the right insular cortex. Dictated by: Dictated on workstation # [id number]
[2021-03-26] MEDS ORDERED: FLUCONAZOLE 150 MG TABLET (ED ONLY) PO ONE (21:45)
[2021-03-26] MEDS ORDERED: cefTRIAXone 1,000 MG in WATER (STERILE) FOR INJECTION 10 ML IV ONE (21:45)
--- NOTE | 2021-03-26 21:48 | Diagnostic Imaging Report ---
PROCEDURE: CT abdomen and pelvis without contrast. TECHNIQUE: Multiple contiguous axial images were obtained through the abdomen and pelvis without the use of intravenous contrast. Auto Exposure Controls were utilized during the CT exam to meet ALARA standards for radiation dose reduction. INDICATION: 76-year-old male, fever, fatigue, leukocytosis, abdominal pain. Prostate cancer. CORRELATION STUDY: 12/08/2020. FINDINGS: There is prominent attenuation over the lower chest and abdomen owing to patient's upper extremity in the [id number]. LOWER THORAX: Heart size enlarged. Scattered calcified granulomas. No significant basilar infiltrate with minimal basilar atelectasis. LIVER: No definitive focal lesion on unenhanced and partially obscured evaluation. GALLBLADDER: Mildly distended, otherwise unremarkable. SPLEEN: Calcified granulomas, otherwise unremarkable. PANCREAS: Unremarkable. ADRENAL GLANDS: 14 mm right adrenal gland nodule, stable. Coarse calcifications adjacent but separate from the left adrenal gland, stable. KIDNEYS: Right kidney generally stable. Left kidney is with slight prominent appearance of minimal perinephric stranding. Left kidney continues also with coarse calcifications and peripelvic cysts. Prominent appearance about the left renal pelvis overall appears slightly more prominent. Left ureter also slightly prominent and is proximal to the mid aspect. However, no definite calcification. Surgical clips anterior to the left kidney. ABDOMINAL AORTA: Moderate wall calcification, nonaneurysmal. A few shotty aortocaval lymph nodes. GASTROINTESTINAL TRACT: Moderate stool with the distal colonic fecal loading. No small bowel obstruction. No significant ascites or free air. URINARY BLADDER: Suprapubic catheter present with bladder decompressed. REPRODUCTIVE: Surgical clips within the prostate bed. Vasectomy clips also present. OSSEOUS STRUCTURES: Negative for acute abnormality. Grade 1 spondylolisthesis with nonacute pars articularis defect of L5 on S1. Some generalized increased density suggested. OTHER: None. IMPRESSION: 1. Rather extensive distal colonic fecal loading and impaction present. No small bowel obstruction. 2. Slightly more prominent left renal pelvis and proximal ureter without definitive obstructing calcification. Given slight haziness, correlate for potential urinary tract infection. Findings could also reflect perhaps recent passage of a stone. Dictated by: Dictated on workstation # [id number]
[2021-03-26 23:29] VITALS: BP 115/60
[2021-03-26] MEDS ORDERED: ONDANSETRON 4 MG/2 ML (SDV) Z0FRAN IVP PRN (23:45)
[2021-03-26] MEDS ORDERED: FLEET ENEMA ADULT 1 EA BTL PR ONE (23:45)
[2021-03-27] MEDS: LACTATED RINGERS 1,000 ML IV SCH ×3 (01:00→21:06)
[2021-03-27 04:46] VITALS: BP 108/57
[2021-03-27 05:10] LABS: BASOPHILS # (AUTO) 0.1 10^3/uL (0.0-0.1); BASOPHILS % (AUTO) 0 % (0-10); EOSINOPHILS # (AUTO) 0.1 10^3/uL (0.0-0.3); EOSINOPHILS % (AUTO) 1 % (0-10); HEMATOCRIT 32 % (40-54); LYMPHOCYTES # (AUTO) 1.4 10^3/uL (1.0-4.0); LYMPHOCYTES % (AUTO) 10 % (12-44); MEAN CORPUSCULAR HEMOGLOBIN 29 pg (25-34); MEAN CORPUSCULAR HGB CONC 31 g/dL (32-36); MEAN CORPUSCULAR VOLUME 94 fL (80-99); MEAN PLATELET VOLUME 11.1 fL (9.0-12.2); MONOCYTES # (AUTO) 1.2 10^3/uL (0.0-1.0); MONOCYTES % (AUTO) 9 % (0-12); NEUTROPHILS # (AUTO) 10.8 10^3/uL (1.8-7.8); NEUTROPHILS % (AUTO) 80 % (42-75); PLATELET COUNT 198 10^3/uL (130-400); WHITE BLOOD COUNT 13.6 10^3/uL (4.3-11.0)
[2021-03-27 05:26] LABS: POTASSIUM 3.8 MMOL/L (3.6-5.0)
[2021-03-27 05:28] LABS: CALCIUM 9.5 MG/DL (8.5-10.1)
[2021-03-27 05:32] LABS: CREATININE SERUM 1.14 MG/DL (0.60-1.30)
[2021-03-27 08:50] VITALS: BP 111/61
[2021-03-27 11:20] VITALS: BP 109/54
--- NOTE | 2021-03-27 12:10 | History & Physical-Hospitalist ---
History of Present Illness HPI/Chief Complaint Patient is 76-year-old male with past medical history of Alzheimer's dementia, Parkinson's disease, hypertension, seizure disorder recent UTI who presented to the emergency department due to lethargy. He is unable to tell me much of what happened yesterday that brought him here. He stated "I do not like being told what to do." All history is obtained from records. He was brought in from the [facility] due to lethargy that started around 3 PM yesterday. Reviewing his recent history he has had multiple urinary tract infections and has been treated with multiple different antibiotics in August and twice in January of this year. He was found to have a recurrent urinary tract infection and admitted for further care and IV antibiotics. Source: patient Exam Limitations: clinical condition Date Seen 03/27/21 Time Seen by a Provider: 12:04 Attending Physician Robb Patel MD PCP Desmond Potts DO Referring Physician Date of Admission Mar 26, 2021 at 21:40 Home Medications & Allergies Home Medications Reviewed patient Home Medication Reconciliation performed by pharmacy medication reconciliations sterilization technician and/or nursing. Patients Allergies have been reviewed. Allergies Allergies Coded Allergies Iodine and Iodide Containing Produc (Verified Allergy, Unknown, 09/06/20) Past Eqbgrbe-Iujoik-Jtbkka Hx Patient Social History Employed/Student: retired Tobacco Use?: No Smoking Status: Former Smoker Smokeless Tobacco Frequency: Unknown if Ever Used Use of E-Cig and/or Vaping Mumtaz: Unknown if Ever Used Substance use?: No Alcohol Use?: No Pt feels they are or have been: No Immunizations Up To Date First/Initial COVID19 Vaccinat: 09/03/20 Second COVID19 Vaccination Ricardo: 09/24/20 Tetanus Booster (TDap): Less Than 5 Years Hepatitis A: No Hepatitis B: No Seasonal Allergies Seasonal Allergies: No Current Status Advance Directives: No Advance Directive Location: FACILITY RECORDS. Communicates: Verbally Primary Language: Swazi Preferred Spoken Language: Swazi Is interpretation needed?: No Implanted or Applied Medical D: None Past Medical History Surgeries: Amputation, Orthopedic Pneumonia, COPD High Cholesterol, Hypertension Dementia, Neuropathy, Parkinson's Disease, Seizure Disorder Prostate Problems, Bladder Infection, Kidney Stones Gastroesophageal Reflux, Chronic Constipation Amputee, Arthritis, Fibromyalgia Diabetes, Insulin dep Hearing Impairment: Hard of Hearing Sleep Difficulties, Depression Blood Disorders: No Family Medical History Reviewed Nursing Family Hx No Pertinent Family Hx Parents Review of Systems ROS-Unable to Obtain: dementia Constitutional: see HPI Physical Exam Physical Exam Vital Signs Vital Signs - First Documented 03/26/21 19:30 Temp 37.0 Pulse 55 Resp 16 B/P (MAP) 112/62 (79) Pulse Ox 98 O2 Delivery Room Air Capillary Refill : Less Than 3 Seconds Height, Weight, BMI Height: '" Weight: lbs. oz. kg; 26.10 BMI Method: General Appearance: No Apparent Distress, Chronically ill HEENT: PERRL/EOMI, Moist Mucous Membranes; No Scleral Icterus (L), No Scleral Icterus (R) Neck: Normal Inspection, Supple Respiratory: Lungs Clear, No Accessory Muscle Use, No Respiratory Distress Cardiovascular: Regular Rate, Rhythm, No JVD, Systolic Murmur Gastrointestinal: Normal Bowel Sounds, Non Tender, Soft Extremity: Other (left great toe with erythema and edema and erythema is tracking up his foot) Neurologic/Psychiatric: Alert, Disoriented Results Results/Procedures Labs Laboratory Tests 03/26/21 19:40 03/27/21 04:20 Patient resulted labs reviewed. Imaging: Reviewed Imaging Report [facility] [place] [place] NAME: JOSI ROMEO [facility] REC#: [id number] PT STATUS: ADM IN : 1945 PHYSICIAN: ALEXA KEYS APRN ADMIT DATE: 03/26/21 Signed Date of Exam:03/26/21 CHEST 1 VIEW, AP/PA ONLY INDICATION: Sepsis. TECHNIQUE: Single view chest 8:12 PM. CORRELATION STUDY: None. FINDINGS: Patient slightly rotated. Given this, the heart size and mediastinum are unremarkable. Vasculature within normal limits. Lung nielson are symmetrically well-inflated and overall clear. IMPRESSION: Negative for acute abnormality of the chest. Dictated by: Dictated on workstation # [id number] Dict: 03/26/212048 Trans: 03/26/212252 [facility] [id number] Interpreted by: MALCOM BARBOSA DO Electronically signed by: MALCOM BARBOSA DO 03/26/212252 [facility] [place] [place] NAME: JOSI ROMEO [facility] REC#: [id number] PT STATUS: ADM IN : 1945 PHYSICIAN: ALEXA KEYS APRN ADMIT DATE: 03/26/21 Signed Date of Exam:03/26/21 CT ABDOMEN/PELVIS WO PROCEDURE: CT abdomen and pelvis without contrast. TECHNIQUE: Multiple contiguous axial images were obtained through the abdomen and pelvis without the use of intravenous contrast. Auto Exposure Controls were utilized during the CT exam to meet ALARA standards for radiation dose reduction. INDICATION: 76-year-old male, fever, fatigue, leukocytosis, abdominal pain. Prostate cancer. CORRELATION STUDY: 12/08/2020. FINDINGS: There is prominent attenuation over the lower chest and abdomen owing to patient's upper extremity in the [id number]-lr-[id number]. LOWER THORAX: Heart size enlarged. Scattered calcified granulomas. No significant basilar infiltrate with minimal basilar atelectasis. LIVER: No definitive focal lesion on unenhanced and partially obscured evaluation. GALLBLADDER: Mildly distended, otherwise unremarkable. SPLEEN: Calcified granulomas, otherwise unremarkable. PANCREAS: Unremarkable. ADRENAL GLANDS: 14 mm right adrenal gland nodule, stable. Coarse calcifications adjacent but separate from the left adrenal gland, stable. KIDNEYS: Right kidney generally stable. Left kidney is with slight prominent appearance of minimal perinephric stranding. Left kidney continues also with coarse calcifications and peripelvic cysts. Prominent appearance about the left renal pelvis overall appears slightly more prominent. Left ureter also slightly prominent and is proximal to the mid aspect. However, no definite calcification. Surgical clips anterior to the left kidney. ABDOMINAL AORTA: Moderate wall calcification, nonaneurysmal. A few shotty aortocaval lymph nodes. GASTROINTESTINAL TRACT: Moderate stool with the distal colonic fecal loading. No small bowel obstruction. No significant ascites or free air. URINARY BLADDER: Suprapubic catheter present with bladder decompressed. REPRODUCTIVE: Surgical clips within the prostate bed. Vasectomy clips also present. OSSEOUS STRUCTURES: Negative for acute abnormality. Grade 1 spondylolisthesis with nonacute pars articularis defect of L5 on S1. Some generalized increased density suggested. OTHER: None. IMPRESSION: 1. Rather extensive distal colonic fecal loading and impaction present. No small bowel obstruction. 2. Slightly more prominent left renal pelvis and proximal ureter without definitive obstructing calcification. Given slight haziness, correlate for potential urinary tract infection. Findings could also reflect perhaps recent passage of a stone. Dictated by: Dictated on workstation # [id number] Dict: 03/26/212126 Trans: 03/26/212253 [facility] [id number] Interpreted by: MALCOM BARBOSA DO Electronically signed by: MALCOM BARBOSA DO 03/26/212253 [facility], [place] NAME: JOSI ROMEO [facility] REC#: [id number] PT STATUS: ADM IN : 1945 PHYSICIAN: ALEXA KEYS APRN ADMIT DATE: 03/26/21 Signed Date of Exam:03/26/21 CT HEAD WO PROCEDURE: CT head without contrast. TECHNIQUE: Multiple contiguous axial images were obtained through the brain without the use of intravenous contrast. Auto Exposure Controls were utilized during the CT exam to meet ALARA standards for radiation dose reduction. INDICATION: Fever, fatigue, leukocytosis. History of prostate cancer. CORRELATION STUDY: 12/19/2020 FINDINGS: Atrophic changes with prominence of the ventricles and sulci. Scattered areas of decreased attenuation likely owing to chronic small vessel ischemic disease. Asymmetric calcification of the right insular cortex. Prominent ossification along the mid to posterior falx as well. No intracranial hemorrhage. No midline shift or mass effect. No hyperdense intracranial vascular sign with presence of prominent intracranial vascular calcification particularly at the carotid siphons. Bony calvarium is intact. Visualized paranasal sinuses are generally clear. There are a few opacified posterior left ethmoid air cells. Prior lens replacement present. IMPRESSION: 1. Negative for acute intracranial abnormality. Generalized atrophic changes with likely changes reflecting small vessel ischemic disease. 2. Generally stable appearance about the calcification of the right insular cortex. Dictated by: Dictated on workstation # [id number] Dict: 03/26/212108 Trans: 03/26/212252 [facility] [id number] Interpreted by: MALCOM BARBOSA DO Electronically signed by: MALCOM BARBOSA DO 03/26/212252 Assessment/Plan Admission Diagnosis SEpsis Admission Status: Inpatient Order (span 2 midnights) Reason for Inpatient Admission: see below Assessment and Plan Sepsis etiology either urine or cellulitis Continue on Rocephin and will add Vanc Await cultures XR ordered of foot Discussed with surgery who will see, appreciate Dr Mireles's help Fecal impaction Resolved now with enema Dementia Continue home meds HTN CAD continue home meds Unsure why on eliquis Diagnosis/Problems Diagnosis/Problems (1) Sepsis Qualifiers: Sepsis type: sepsis due to unspecified organism Sepsis acute organ dysfunction status: without acute organ dysfunction Qualified Codes: A41.9 - Sepsis, unspecified organism (2) Dementia Status: Chronic Qualifiers: Dementia type: Alzheimer's Alzheimer's disease onset: unspecified onset Dementia behavioral disturbance: without behavioral disturbance Qualified Codes: G30.9 - Alzheimer's disease, unspecified; F02.80 - Dementia in other diseases classified elsewhere without behavioral disturbance (3) Fecal impaction Status: Acute (4) Seizure disorder Status: Chronic (5) AMS (altered mental status) Status: Acute Qualifiers: Altered mental status type: disorientation Qualified Codes: R41.0 - Disorientation, unspecified (6) Urinary tract infection Status: Acute Qualifiers: Urinary tract infection type: catheter-associated UTI Indwelling urinary catheter type: indwelling urethral catheter Encounter type: initial encounter Qualified Codes: T83.511A - Infection and inflammatory reaction due to indwelling urethral catheter, initial encounter; N39.0 - Urinary tract infection, site not specified (7) Cellulitis Qualifiers: Site of cellulitis: extremity Site of cellulitis of extremity: toe Laterality: left Qualified Codes: L03.032 - Cellulitis of left toe ROBB PATEL MD Mar 27, 2021 12:10
[2021-03-27] MEDS ORDERED: VANCOMYCIN INJECTION 0.1 MG in NS (IVPB) 250 ML IV SCH (12:15)
[2021-03-27] MEDS ORDERED: VANCOMYCIN 1,750 MG/NS 500 ML IVPB IV NR ×2 (12:30)
--- NOTE | 2021-03-27 12:43 | Consultation - Surgery ---
KOLE RUIZ MED STUDENT 03/27/21 1243: History of Present Illness History of Present Illness Patient Consulted On(adolfo/time) 03/27/21 12:32 Date Seen by Provider: Mar 27, 2021 Time Seen by Provider: 12:40 Reason for Visit: possible cellulitis History of Present Illness This is a 76 y/o M who presented to the ED for UTI and AMS. He had fever and lethargy. today: Upon entering the room, patient had soiled himself. Nurses were cleaning him and taking stool samples for c. diff. History is limited due to history of alzheimer's, AMS, and limited ability to communicate. History obtained from records. Surgery was consulted for possible cellulitis of the left foot. Left big toe with distal portion amputated. L big toe is swollen to 2x normal size, red, warm to touch up to mid dorsal of foot. Right foot has all toes amputated. Allergies and Home Medications Allergies Coded Allergies: Iodine and Iodide Containing Produc (Verified Allergy, Unknown, 09/06/20) Home Medications Cefuroxime Axetil 500 Mg Tablet, 500 MG PO BID Prescribed by: NIKKI RAINEY on 09/17/20 0523 Levofloxacin 500 Mg Tablet, 500 MG PO DAILY Prescribed by: ALEXA KEYS on 12/08/20 1504 [lidocaine] % , 2.1 ML IM DAILY Prescribed by: CHRISTOS CASILLAS on 02/18/21 1135 [rocephin] , 1 GM IM DAILY Prescribed by: CHRISTOS CASILLAS on 02/18/21 1135 Past Cbqdjxk-Soznks-Widxxn Hx Patient Social History Smoking Status: Former Smoker Type Used: Smokeless Tobacco 2nd Hand Smoke Exposure: No Recent Hopitalizations: No Alcohol Use?: No Have you traveled recently?: No Immunizations Up To Date Tetanus Booster (TDap): Unknown Seasonal Allergies Seasonal Allergies: No Surgeries History of Surgeries: Yes (RIGHT FOOT--ALL TOES AMPUTATED. PARTIAL AMPUTATION LEFT GREAT TOE) Surgeries: Amputation (all toes on R foot), Orthopedic Respiratory History of Respiratory Disorde: Yes (COVID-19 INFECTION) Respiratory Disorders: Pneumonia, COPD Cardiovascular History of Cardiac Disorders: Yes Cardiac Disorders: High Cholesterol, Hypertension Neurological History of Neurological Disord: Yes (DEMENTIA WITH BEHAVIOR DISTURBANCE) Neurological Disorders: Dementia, Neuropathy, Parkinson's Disease, Seizure Disorder Genitourinary History of Genitourinary Disor: Yes Genitourinary Disorders: Prostate Problems, Bladder Infection, Kidney Stones Gastrointestinal History of Gastrointestinal Di: Yes Gastrointestinal Disorders: Gastroesophageal Reflux, Chronic Constipation Musculoskeletal History of Musculoskeletal Dis: Yes Musculoskeletal Disorders: Amputee, Arthritis, Fibromyalgia Endocrine History of Endocrine Disorders: Yes Endocrine Disorders: Diabetes, Insulin dep HEENT History of HEENT Disorders: Yes (NOSEBLEEDS) Hearing Impairment: Hard of Hearing Cancer History of Cancer: No Psychosocial History of Psychiatric Problem: Yes (DEMENTIA WITH BEHAVIOR DISTURBANCE) Behavioral Health Disorders: Sleep Difficulties, Depression Integumentary History of Skin or Integumenta: No Blood Transfusions History of Blood Disorders: No Family Medical History Significant Family History: No Pertinent Family Hx Review of Systems-General ROS-Unable to Obtain: hx of alzheimer's and AMS Physical Exam-General Problems Physical Exam Vital Signs Vital Signs - First Documented 03/26/21 19:30 Temp 37.0 Pulse 55 Resp 16 B/P (MAP) 112/62 (79) Pulse Ox 98 O2 Delivery Room Air Capillary Refill : Less Than 3 Seconds General Appearance: no apparent distress Respiratory: lungs clear, normal breath sounds Cardiovascular: bradycardia Gastrointestinal: non tender, soft Extremities: non-tender, no calf tenderness, swelling (L big toe and dormsum of foot), other (erythematous, warm, swollen L big toe up to dorsum of foot. purulent/bloody drainage. ulcer/scab on bottom of big toe. R foot all toes amputated) Skin: other (increased warm below L knee down to toes) Data Review Labs Laboratory Tests 03/26/21 19:40: White Blood Count 16.8H, Red Blood Count 3.85L, Hemoglobin 11.5L, Hematocrit 35L , Mean Corpuscular Volume 92, Mean Corpuscular Hemoglobin 30, Mean Corpuscular Hemoglobin Concent 33, Red Cell Distribution Width 15.3H, Platelet Count 233, Mean Platelet Volume 10.4, Immature Granulocyte % (Auto) 1, Neutrophils (%) (Auto) 82H, Lymphocytes (%) (Auto) 9L, Monocytes (%) (Auto) 9, Eosinophils (%) (Auto) 0, Basophils (%) (Auto) 0, Neutrophils # (Auto) 13.7H, Lymphocytes # (Auto) 1.4, Monocytes # (Auto) 1.5H, Eosinophils # (Auto) 0.0, Basophils # (Auto) 0.1, Immature Granulocyte # (Auto) 0.1, Neutrophils % (Manual) 81, Lymphocytes % (Manual) 6, Monocytes % (Manual) 9, Eosinophils % (Manual) 0, Basophils % (Manual) 0, Band Neutrophils 1, Reactive Lymphocytes 3, Poikilocytosis SLIGHT, Anisocytosis SLIGHT, Rouleau SLIGHT, Prothrombin Time 19.0H, INR Comment 1.5H, Activated Partial Thromboplast Time 43H, Sodium Level 141, Potassium Level 3.8, Chloride Level 107, Carbon Dioxide Level 23, Anion Gap 11, Blood Urea Nitrogen 28H, Creatinine 1.40H, Estimat Glomerular Filtration Rate 49, BUN/Creatinine Ratio 20, Glucose Level 131H, Lactic Acid Level 0.93, Calcium Level 10.0, Corrected Calcium 10.0, Total Bilirubin 0.8, Aspartate Amino Transf (AST/SGOT) 62H, Alanine Aminotransferase (ALT/SGPT) 27, Alkaline Phosphatase 67, Total Protein 7.2, Albumin 4.0 03/26/21 19:59: Glucometer 136H 03/26/21 20:05: Urine Color YELLOW, Urine Clarity CLOUDY, Urine pH >=9.0, Urine Specific [place] <=1.005, Urine Protein 2+H, Urine Glucose (UA) NEGATIVE, Urine Ketones NEGATIVE, Urine Nitrite NEGATIVE, Urine Bilirubin NEGATIVE, Urine Urobilinogen 1.0, Urine Leukocyte Esterase 2+H, Urine RBC (Auto) 3+H, Urine RBC 0-2, Urine WBC 2-5, Urine Squamous Epithelial Cells NONE, Urine Crystals PRESENTH, Urine Calcium Oxalate Crystals FEWH, Urine Bacteria LARGEH, Urine Casts NONE, Urine Mucus NEGATIVE, Urine Yeast FEWH, Urine Culture Indicated CULTURE PENDING 03/27/21 04:20: White Blood Count 13.6H, Red Blood Count 3.41L, Hemoglobin 10.0L, Hematocrit 32L , Mean Corpuscular Volume 94, Mean Corpuscular Hemoglobin 29, Mean Corpuscular Hemoglobin Concent 31L, Red Cell Distribution Width 15.3H, Platelet Count 198, Mean Platelet Volume 11.1, Immature Granulocyte % (Auto) 0, Neutrophils (%) (Auto) 80H, Lymphocytes (%) (Auto) 10L, Monocytes (%) (Auto) 9, Eosinophils (%) (Auto) 1, Basophils (%) (Auto) 0, Neutrophils # (Auto) 10.8H, Lymphocytes # (Auto) 1.4, Monocytes # (Auto) 1.2H, Eosinophils # (Auto) 0.1, Basophils # (Auto) 0.1, Immature Granulocyte # (Auto) 0.1, Sodium Level 142, Potassium Level 3.8, Chloride Level 108H, Carbon Dioxide Level 22, Anion Gap 12, Blood Urea Nitrogen 25H, Creatinine 1.14, Estimat Glomerular Filtration Rate 62, BUN/Creatinine Ratio 22, Glucose Level 89, Calcium Level 9.5 Microbiology 03/26/21 Urine Culture - Preliminary, Resulted Gram Negative [facility] [employer] Assessment/Plan Assessment/Plan Assessment/Plan cellulitis * continue ceftriaxone and vancomycin * obtain culture from foot drainage site * consider MRI UTI * continue antibiotics diarrhea * culture for c. diff hx of dementia, DM, alzheimer * continue home meds as appropriate ANGEL MUSA DO 03/27/21 1424: History of Present Illness History of Present Illness Time Seen by Provider: 13:41 History of Present Illness Surgery is asked to consult regarding Cellulitis and possible Osteomyelitis. HPI: Pt is a 76 yo male, unfortunately has dementia and unable to get any hx from him. Admitted with UTI. Allergies and Home Medications Allergies Coded Allergies: Iodine and Iodide Containing Produc (Verified Allergy, Unknown, 09/06/20) Home Medications Cefuroxime Axetil 500 Mg Tablet, 500 MG PO BID Prescribed by: NIKKI RAINEY on 09/17/20 0523 Levofloxacin 500 Mg Tablet, 500 MG PO DAILY Prescribed by: ALEXA KEYS on 12/08/20 1504 [lidocaine] % , 2.1 ML IM DAILY Prescribed by: CHRISTOS CASILLAS on 02/18/21 1135 [rocephin] , 1 GM IM DAILY Prescribed by: CHRISTOS CASILLAS on 02/18/21 1135 Patient Home Medication List Home Medication List Reviewed: Yes Past Ymwgand-Dsqyte-Mskcjt Hx Surgeries History of Surgeries: Yes Surgeries: Amputation (all toes on R foot), Orthopedic Family Medical History Significant Family History: Other Conditions/Hx (unable to obtain, pt can't answer questions) Review of Systems-General ROS-Unable to Obtain: unable to obtain due to dementia no family or nursinghome staff at bedside Physical Exam-General Problems Physical Exam General Appearance: no apparent distress Eyes: Bilateral Eye PERRL, Bilateral Eye EOMI HEENT: pharynx normal; No scleral icterus (R), No scleral icterus (L) Neck: supple Respiratory: lungs clear, normal breath sounds, no respiratory distress, no accessory muscle use Cardiovascular: no murmur, bradycardia Gastrointestinal: non tender, soft, no organomegaly, other (supra-pubic tube in place) Extremities: no calf tenderness, swelling (L big toe and dormsum of foot), other (erythematous, warm, swollen L big toe up to dorsum of foot. purulent/bloody drainage. ulcer/scab on bottom of big toe. R foot all toes amputated) Neurologic/Psychiatric: other (unable to obtain) Assessment/Plan Assessment/Plan Assessment/Plan Cellulitis r/o Osteomyelitis UTI with indwelling supra-pubic tube Diarrhea Dementia with Alzheimer's and Parkinsons Had an Xray and no obvious Osteomyelitis, may need an MRI. Will get wound culture from toe to place on correct ABX. May need amputation, will continue to monitor toe; did draw lines around erythema and will recheck that tomorrow. [facility]. Supervisory-Addendum Brief Verification & Attestation Participated in pt care: history, MDM, physical Personally performed: exam, history, MDM, supervision of care Care discussed with: Medical Student Procedures: n/a Verification and Attestation of Medical Student E/M Service A medical student performed and documented this service. I then reviewed and verified all information documented by the medical student and made modifications to such information, when appropriate. I personally performed a physical exam, medical decision making and then discussed any differences between the notes and made revisions as necessary to create one note. Angel Musa , 03/27/21 , 14:24 KOLE RUIZ MED STUDENT Mar 27, 2021 12:43 ANGEL MUSA DO Mar 27, 2021 14:24
--- NOTE | 2021-03-27 15:34 | Diagnostic Imaging Report ---
EXAM: Left foot at 12:15 PM INDICATION: Cellulitis AP and lateral views were obtained. There are no prior studies available for comparison. The distal phalanx of the great toe has been amputated. There is generalized soft tissue edema about the proximal phalanx head. There is also a minute metallic foreign body along the skin surface of the plantar aspect of the great toe in the region of the first proximal phalanx. There is no sign of bony destruction to suggest osteomyelitis however. There also appears to have been prior surgery to the heads of the 2nd and 3rd proximal phalanges. In addition, there is deformity of the 3rd and 4th metacarpals due to prior trauma. There is no acute bony abnormality appreciated. The soft tissues are otherwise unremarkable. IMPRESSION: 1. There are postsurgical and postraumatic changes as described above. 2. There is generalized soft tissue edema about the proximal phalanx. There is no sign of bony destruction but if there is clinical concern regarding osteomyelitis in this area, MRI would be recommended. Dictated by: Dictated on workstation # [id number]
[2021-03-27] MEDS ORDERED: PANT40TA52 PO (15:47)
[2021-03-27] MEDS ORDERED: ASPI-1238 PO (15:47)
[2021-03-27] MEDS ORDERED: DOCU-143 PO (15:47)
[2021-03-27] MEDS ORDERED: MIRT-68 PO (15:47)
[2021-03-27] MEDS ORDERED: ROSU10TA28 PO (15:47)
[2021-03-27] MEDS ORDERED: DONE10TA41 PO (15:47)
[2021-03-27] MEDS ORDERED: ASEN10TA11 SL (15:47)
[2021-03-27] MEDS ORDERED: NPH,100I5 SQ ×2 (15:47)
[2021-03-27] MEDS ORDERED: APIX5TAB PO (15:47)
[2021-03-27] MEDS ORDERED: GABA-486 PO (15:47)
[2021-03-27] MEDS ORDERED: MELA3CAP2 PO (15:47)
[2021-03-27] MEDS ORDERED: LEVE750T5 PO (15:47)
[2021-03-27] MEDS ORDERED: ASEN5TAB SL (15:47)
[2021-03-27 16:12] VITALS: BP 119/56
[2021-03-27] MEDS: VANCOMYCIN 125 MG CAPSULE PO SCH ×2 (17:39→23:33)
[2021-03-27 19:22] VITALS: BP 101/53
[2021-03-27] MEDS: inSUlin ASPART (NovoLOG) 1 UNIT/0.01 ML (CHARGE PER UNIT) SC SCH (21:26)
[2021-03-27] MEDS: cefTRIAXone 1,000 MG/SWFI 10 ML IV PUSH IV SCH ×2 (22:00)
[2021-03-27] MEDS: fluCOnazole (DIFLUCAN) 100 MG TAB PO SCH (22:01)
[2021-03-27] MEDS: APIXABAN 5 MG (ELIQUIS) TABLET PO SCH (22:01)
[2021-03-27] MEDS: MIRTAZAPINE 15 MG (REMERON) TAB PO SCH (22:01)
[2021-03-27] MEDS: ROSUVASTATIN 10 MG (CRESTOR) TABLET PO SCH (22:01)
[2021-03-27] MEDS: GABAPENTIN 100 MG (NEURONTIN) CAP PO SCH (22:01)
[2021-03-27] MEDS: DONEPEZIL 10 MG (ARICEPT) TAB PO SCH (22:01)
[2021-03-27 23:54] VITALS: BP 115/61
[2021-03-28 04:19] VITALS: BP 102/54
[2021-03-28] MEDS: inSUlin ASPART (NovoLOG) 1 UNIT/0.01 ML (CHARGE PER UNIT) SC SCH ×4 (05:36→21:31)
[2021-03-28] MEDS: VANCOMYCIN 125 MG CAPSULE PO SCH ×3 (05:56→17:12)
[2021-03-28 08:10] VITALS: BP 106/58
--- NOTE | 2021-03-28 08:44 | Progress Note - Surgery ---
KOLE RUIZ MED STUDENT 03/28/21 0844: Subjective Date Seen by a Provider: Mar 28, 2021 Time Seen by a Provider: 09:10 Subjective/Events-last exam Hospital course: 76 y/o M to ED for UTI and AMS. He had fever and lethargy. On vanc and ceftriaxone for UTI. Hx of alzheimer's. limited ability to communicate. possible cellulitis of L big toe/foot. Right toes amputated. X-ray showed no signs of osteomyelitis. C. Diff culture inconclusive. today: Pt is resting comfortably in bed. He is able to follow commands but does not respond to questions appropriately due to alzheimer's/AMS. The erythema, swelling, and warmth has not gone beyond the borders of the marked lines nor has it decreased. Per nurse, his diet was changed to a mechanical soft diet that he had in the assisted. He is not ambulating but PT has been consulted for tomorrow. He is having diarrhea and urine output via indwelling supra-pubic tube . Review of Systems unable to obtain due to alzheimer's Focused Exam Lactate Level 03/26/21 19:40: Lactic Acid Level 0.93 Objective Exam Vital Signs Date Time Temp Pulse Resp B/P (MAP) Pulse Ox O2 Delivery O2 Flow Rate FiO2 03/28/21 08:10 36.3 52 20 106/58 (74) 99 Room Air 03/28/21 04:19 36.4 69 16 102/54 (70) 93 Room Air 03/27/21 23:54 36.4 62 18 115/61 (79) 93 Room Air 03/27/21 20:35 Nasal Cannula 03/27/21 19:22 37.0 62 18 101/53 (69) 98 Room Air 03/27/21 16:12 37.3 71 18 119/56 (77) 94 Room Air 03/27/21 11:20 36.6 61 16 109/54 (72) 94 Room Air 03/27/21 09:00 Nasal Cannula 03/27/21 08:50 36.6 68 18 111/61 (78) 99 Room Air I & O 03/28/21 07:00 Intake Total 1160 ml Output Total 1575 ml Balance -415 ml Capillary Refill : Less Than 3 Seconds General Appearance: No Apparent Distress, Chronically ill HEENT: PERRL/EOMI, Moist Mucous Membranes; No Scleral Icterus (L), No Scleral Icterus (R) Neck: Normal Inspection, Supple Respiratory: Lungs Clear, No Accessory Muscle Use, No Respiratory Distress Cardiovascular: Systolic Murmur Gastrointestinal: soft, no organomegaly, tenderness, other (supra-pubic tube in place) Extremity: Non Tender, No Pedal Edema, Other (left great toe with erythema and edema and erythema is tracking up his foot) Neurologic/Psychiatric: Alert, Disoriented Skin: Warm/Dry, Other (erythematous, swelling, warmth on L big toe and dorsum foot. R toes amputated) Lymphatic: No Adenopathy Results Lab Laboratory Tests 03/27/21 21:15: Glucometer 137H 03/28/21 05:28: Glucometer 92 Microbiology 03/27/21 Gram Stain, Resulted Pending 03/27/21 Wound Culture - Preliminary, Resulted Staphylococcus aureus 03/27/21 C. difficile DNA Amplification, Resulted Pending 03/27/21 C. difficile GDH Antigen & Toxins - Final, Resulted 03/26/21 Urine Culture - Preliminary, Resulted Gram Negative [facility] [facility] 03/26/21 Blood Culture - Preliminary, Resulted Staphylococcus aureus Assessment/Plan Assessment/Plan Assessment/Plan Cellulitis r/o Osteomyelitis UTI with indwelling supra-pubic tube Diarrhea Dementia with Alzheimer's and Parkinsons Had an Xray and no obvious Osteomyelitis, may need an MRI. Wound culture showed S. aureus. Continue vancomycin. May need amputation, will continue to monitor toe. Would need NPO after midnight if considering surgery; Erythema/swelling remained within the borders of drawn line. [facility]. Stool culture indeterminate for c. diff, waiting on send out. JUAN MIRELES DO 03/28/21 1359: Subjective Time Seen by a Provider: 11:35 Subjective/Events-last exam Pt see and examined, appears comfortable. Review of Systems unable to obtain due to alzheimer's Objective Exam General Appearance: No Apparent Distress, Chronically ill HEENT: Moist Mucous Membranes Respiratory: Lungs Clear, No Accessory Muscle Use, No Respiratory Distress Cardiovascular: Regular Rate, Rhythm, Systolic Murmur Gastrointestinal: soft, no organomegaly, tenderness (with deep palpation, mostly lower abd near supra-pubic tube), other (supra-pubic tube in place) Extremity: Other (left great toe with erythema and edema and erythema is better compared to yesterday and doesn't look as swollen) Neurologic/Psychiatric: Disoriented Skin: Other (erythematous, swelling, warmth on L big toe and dorsum foot. R toes amputated) Assessment/Plan Assessment/Plan Assessment/Plan Cellulitis r/o Osteomyelitis UTI with indwelling supra-pubic tube Diarrhea Dementia with Alzheimer's and Parkinsons Had an Xray and no obvious Osteomyelitis, may need an MRI. Wound culture showed S. aureus. Continue vancomycin. May need amputation, will continue to monitor toe; it actually looks better today and he ate. Would need NPO after midnight if considering surgery; Erythema/swelling remained within the borders of drawn line. [facility]. Stool culture indeterminate for c. diff, waiting on send out. Supervisory-Addendum Brief Verification & Attestation Participated in pt care: history, MDM, physical Personally performed: exam, history, MDM, supervision of care Care discussed with: Medical Student Procedures: n/a Verification and Attestation of Medical Student E/M Service A medical student performed and documented this service. I then reviewed and verified all information documented by the medical student and made modifications to such information, when appropriate. I personally performed a physical exam, medical decision making and then discussed any differences between the notes and made revisions as necessary to create one note. Juan Mireles , 03/28/21 , 13:59 KOLE RUIZ MED STUDENT Mar 28, 2021 08:44 JUAN MIRELES DO Mar 28, 2021 13:59
[2021-03-28] MEDS: PANTOPRAZOLE 40 MG (PROTONIX) TAB PO SCH (09:50)
[2021-03-28] MEDS: APIXABAN 5 MG (ELIQUIS) TABLET PO SCH ×2 (09:50→20:35)
[2021-03-28] MEDS: LACTATED RINGERS 1,000 ML IV SCH (09:57)
--- NOTE | 2021-03-28 10:50 | Progress Note - Hospitalist ---
Subjective HPI/CC On Admission Date Seen by Provider: Mar 28, 2021 Time Seen by Provider: 10:43 Patient is 76-year-old male with past medical history of Alzheimer's dementia, Parkinson's disease, hypertension, seizure disorder recent UTI who presented to the emergency department due to lethargy. He is unable to tell me much of what happened yesterday that brought him here. He stated "I do not like being told what to do." All history is obtained from records. He was brought in from the long-term due to lethargy that started around 3 PM yesterday. Reviewing his recent history he has had multiple urinary tract infections and has been treated with multiple different antibiotics in August and twice in January of this year. He was found to have a recurrent urinary tract infection and admitted for further care and IV antibiotics. Subjective/Events-last exam Pt sleeping today. No complaints when I woke him up. Rn reports less diarrhea today. Focused Exam Lactate Level 03/26/21 19:40: Lactic Acid Level 0.93 Objective Exam Vital Signs Vital Signs Date Time Temp Pulse Resp B/P (MAP) Pulse Ox O2 Delivery O2 Flow Rate FiO2 03/28/21 08:10 36.3 52 20 106/58 (74) 99 Room Air Capillary Refill : Less Than 3 Seconds General Appearance: No Apparent Distress, Chronically ill Respiratory: Lungs Clear, No Respiratory Distress Cardiovascular: Regular Rate, Rhythm, No Murmur Gastrointestinal: Normal Bowel Sounds, Non Tender, Soft Neurologic/Psychiatric: Alert, Other (oriented to place) Results/Procedures Lab Patient resulted labs reviewed. Imaging: Reviewed Imaging Report Assessment/Plan Assessment and Plan Assess & Plan/Chief Complaint Sepsis from cellulitis POA Continue on Rocephin and Vanc bacteremic with staph aureus, wound on foot likely source of sepsis XR of foot without obvious osteo Surgery consulted, appreciate recs Consider MRI in AM Diarrhea Continue on oral vanc for indeterminant c diff results Dementia Continue home meds HTN CAD continue home meds Unsure why on eliquis- holding for possible surgery DVT ppx SCDs Diagnosis/Problems Diagnosis/Problems (1) Sepsis Qualifiers: Sepsis type: sepsis due to unspecified organism Sepsis acute organ dysf unction status: without acute organ dysfunction Qualified Codes: A41.9 - Sepsis, unspecified organism (2) Dementia Status: Chronic Qualifiers: Dementia type: Alzheimer's Alzheimer's disease onset: unspecified onset Dementia behavioral disturbance: without behavioral disturbance Qualified Codes: G30.9 - Alzheimer's disease, unspecified; F02.80 - Dementia in other diseases classified elsewhere without behavioral disturbance (3) Fecal impaction Status: Acute (4) Seizure disorder Status: Chronic (5) AMS (altered mental status) Status: Acute Qualifiers: Altered mental status type: disorientation Qualified Codes: R41.0 - Disorientation, unspecified (6) Urinary tract infection Status: Acute Qualifiers: Urinary tract infection type: catheter-associated UTI Indwelling urinary catheter type: indwelling urethral catheter Encounter type: initial encounter Qualified Codes: T83.511A - Infection and inflammatory reaction due to indwelling urethral catheter, initial encounter; N39.0 - Urinary tract infection, site not specified (7) Cellulitis Qualifiers: Site of cellulitis: extremity Site of cellulitis of extremity: toe Laterality: left Qualified Codes: L03.032 - Cellulitis of left toe ROBB DIOR MD Mar 28, 2021 10:50
[2021-03-28 11:25] VITALS: BP 105/62
[2021-03-28] MEDS ORDERED: VANCOMYCIN 1500 MG/NS 500 ML IVPB IV SCH ×2 (12:00)
[2021-03-28 16:18] VITALS: BP 126/71
[2021-03-28 19:47] VITALS: BP 130/75
[2021-03-28] MEDS: cefTRIAXone 1,000 MG/SWFI 10 ML IV PUSH IV SCH ×2 (20:34)
[2021-03-28] MEDS: DONEPEZIL 10 MG (ARICEPT) TAB PO SCH (20:36)
[2021-03-28] MEDS: ACETAMINOPHEN 325 MG TABLET PO PRN (20:36)
[2021-03-28] MEDS: fluCOnazole (DIFLUCAN) 100 MG TAB PO SCH (20:36)
[2021-03-28] MEDS: ROSUVASTATIN 10 MG (CRESTOR) TABLET PO SCH (20:36)
[2021-03-28] MEDS: GABAPENTIN 100 MG (NEURONTIN) CAP PO SCH (20:36)
[2021-03-28] MEDS: MIRTAZAPINE 15 MG (REMERON) TAB PO SCH (20:37)
[2021-03-29 00:03] VITALS: BP_SYST 130; BP_SYST 96; BP_DIAS 54; BP_DIAS 75
[2021-03-29] MEDS: VANCOMYCIN 125 MG CAPSULE PO SCH ×4 (00:05→18:01)
[2021-03-29 04:46] VITALS: BP 128/77
[2021-03-29] MEDS: inSUlin ASPART (NovoLOG) 1 UNIT/0.01 ML (CHARGE PER UNIT) SC SCH ×4 (06:28→20:08)
[2021-03-29] MEDS: LACTATED RINGERS 1,000 ML IV SCH ×2 (06:28→18:56)
[2021-03-29 08:00] VITALS: BP 108/70
--- NOTE | 2021-03-29 09:04 | Progress Note - Surgery ---
KOLE RUIZ MED STUDENT 03/29/21 0904: Subjective Date Seen by a Provider: Mar 29, 2021 Time Seen by a Provider: 07:35 Subjective/Events-last exam Hospital course: 76 y/o M to ED for UTI and AMS. He had fever and lethargy. On vanc and ceftriaxone for UTI. Hx of alzheimer's. limited ability to communicate. possible cellulitis of L big toe/foot. Right toes amputated. X-ray showed no signs of osteomyelitis. C. Diff positive, contact precautions. today: Pt is resting comfortably in bed. He is able to follow commands but does not respond to questions appropriately due to alzheimer's/AMS. He is A&O x1 to self but not to place or time. The erythema has decreased since yesterday. Swelling and warmth still present in foot. No warmth or swelling in leg. Per nurse, he has been NPO since midnight due to a consideration for surgery. He is not ambulating. He is having diarrhea and urine output via indwelling supra-pubic tube. Review of Systems unable to obtain due to alzheimer's Focused Exam Lactate Level 03/26/21 19:40: Lactic Acid Level 0.93 Objective Exam Vital Signs Date Time Temp Pulse Resp B/P (MAP) Pulse Ox O2 Delivery O2 Flow Rate FiO2 03/29/21 04:46 36.6 59 18 128/77 (94) 98 Room Air 03/29/21 00:03 36.8 53 18 96/54 (68) 96 Room Air 03/28/21 20:35 Room Air 03/28/21 19:47 36.8 71 18 130/75 (93) 98 Room Air 03/28/21 16:18 36.6 58 18 126/71 (89) 95 Room Air 03/28/21 11:25 36.5 62 20 105/62 (76) 100 Room Air I & O 03/29/21 07:00 Intake Total 730 ml Output Total 1500 ml Balance -770 ml Capillary Refill : Less Than 3 Seconds General Appearance: No Apparent Distress, Chronically ill HEENT: Moist Mucous Membranes Neck: Normal Inspection, Supple Respiratory: Lungs Clear, No Accessory Muscle Use, No Respiratory Distress Cardiovascular: Regular Rate, Rhythm, Systolic Murmur Gastrointestinal: soft, no organomegaly, tenderness (with deep palpation, m ostly lower abd near supra-pubic tube), other (supra-pubic tube in place) Extremity: Other (left great toe with erythema and edema and erythema is better compared to yesterday and doesn't look as swollen) Neurologic/Psychiatric: Disoriented Skin: Other (erythematous, swelling, warmth on L big toe and dorsum foot. R t oes amputated) Lymphatic: No Adenopathy Results Lab Laboratory Tests 03/28/21 11:39: Glucometer 120H 03/28/21 16:25: Glucometer 111H 03/28/21 20:38: Glucometer 115H 03/29/21 06:25: Glucometer 82 Microbiology 03/27/21 Gram Stain, Resulted Pending 03/27/21 Wound Culture - Preliminary, Resulted Mixed Bacterial Carmen Staphylococcus aureus 03/27/21 C. difficile DNA Amplification, Resulted Pending 03/27/21 C. difficile GDH Antigen & Toxins - Final, Resulted 03/26/21 Urine Culture - Preliminary, Resulted Escherichia coli Proteus mirabilis 03/26/21 Blood Culture - Preliminary, Resulted Staphylococcus aureus Testing In Progress Assessment/Plan Assessment/Plan Assessment/Plan Cellulitis r/o Osteomyelitis UTI with indwelling supra-pubic tube Diarrhea Dementia with Alzheimer's and Parkinsons anemia C. Diff Had an Xray with no obvious Osteomyelitis, may need an MRI. Wound culture showed S. aureus. Continue vancomycin. L toe looks improved with decreased erythema and warmth; can take off NPO since improving. Continue to monitor foot. May consider surgery if worsens; [facility]. Stool positive for c. diff, contact precautions. Hgb dropped from 11.5 to 10.0. WBC improving from 16.8 to 13.6. Repeat CBC tomorrow and monitor labs. JUAN MIRELES DO 03/29/21 1430: Subjective Time Seen by a Provider: 13:55 Subjective/Events-last exam Pt seen and examined, denies foot pain. He actually is able to converse today and is asking when he can go home. Review of Systems Cardiovascular: No: Chest Pain, Palpitations Gastrointestinal: No: Nausea, Vomiting, Abdominal Pain Objective Exam General Appearance: No Apparent Distress, Chronically ill Respiratory: Lungs Clear, Normal Breath Sounds, No Accessory Muscle Use, No Respiratory Distress Cardiovascular: Regular Rate, Rhythm, Systolic Murmur Gastrointestinal: soft, no organomegaly, tenderness (with deep palpation, mostly lower abd near supra-pubic tube) Extremity: Other (left great toe with erythema and edema and erythema is better compared to yesterday and doesn't look as swollen. However, appears to have more drainage from bottom of toe) Skin: Other ( R toes amputated) Assessment/Plan Assessment/Plan Assessment/Plan Cellulitis r/o Osteomyelitis UTI with indwelling supra-pubic tube Diarrhea Dementia with Alzheimer's and Parkinsons anemia C. Diff I believe now he needs an MRI. Wound culture showed S. aureus. Continue vancomycin. L foot looks improved with decreased erythema and warmth but toe is draining more now. Will take off NPO until at least we get an MRI result. Continue to monitor foot. [facility]. Stool positive for c. diff, contact precautions. Hgb dropped from 11.5 to 10.0. WBC improving from 16.8 to 13.6. Repeat CBC tomorrow and monitor labs. Supervisory-Addendum Brief Verification & Attestation Participated in pt care: history, MDM, physical Personally performed: exam, history, MDM, supervision of care Care discussed with: Medical Student Procedures: n/a Verification and Attestation of Medical Student E/M Service A medical student performed and documented this service. I then reviewed and verified all information documented by the medical student and made modificat ions to such information, when appropriate. I personally performed a physical exam, medical decision making and then discussed any differences between the notes and made revisions as necessary to create one note. Juan Mireles , 03/29/21 , 14:30 KOLE RUIZ MED STUDENT Mar 29, 2021 09:04 JUAN MIRELES DO Mar 29, 2021 14:30
[2021-03-29] MEDS: APIXABAN 5 MG (ELIQUIS) TABLET PO SCH ×2 (09:30→20:01)
[2021-03-29] MEDS: PANTOPRAZOLE 40 MG (PROTONIX) TAB PO SCH (09:30)
[2021-03-29] MEDS ORDERED: BISA10SU8 RC (10:18)
[2021-03-29] MEDS ORDERED: SENN-234 PO (10:18)
[2021-03-29] MEDS ORDERED: MOM10U PO (10:18)
[2021-03-29] MEDS ORDERED: ACET-2650 PO (10:18)
[2021-03-29] MEDS ORDERED: SODI14.13 NSEACH (10:18)
[2021-03-29] MEDS ORDERED: OXYM15MI4 NSEACH (10:18)
[2021-03-29] MEDS ORDERED: MAG30ORA2 PO (10:18)
[2021-03-29] MEDS ORDERED: CARB15DR OU (10:18)
[2021-03-29] MEDS ORDERED: POLY17PO6 PO (10:18)
[2021-03-29] MEDS ORDERED: MIRT-69 PO (10:18)
[2021-03-29] MEDS ORDERED: CALC-1026 PO (10:18)
[2021-03-29] MEDS ORDERED: MULT-1136 PO (10:18)
[2021-03-29] MEDS ORDERED: CARB15DR OD (10:18)
[2021-03-29] MEDS ORDERED: ACET-2267 PO (10:18)
[2021-03-29] MEDS ORDERED: ACET-2840 PO (10:18)
[2021-03-29] MEDS ORDERED: TROUGH ORDER-PHARMACY XX NR (11:00)
--- NOTE | 2021-03-29 11:14 | Progress Note - Hospitalist ---
PHOEBE COLINDRES 03/29/21 1114: Subjective HPI/CC On Admission Time Seen by Provider: 08:52 Patient is 76-year-old male with past medical history of Alzheimer's dementia, Parkinson's disease, hypertension, seizure disorder recent UTI who presented to the emergency department due to lethargy. He is unable to tell me much of what happened yesterday that brought him here. He stated "I do not like being told what to do." All history is obtained from records. [facility] from the [facility] living due to lethargy that started around 3 PM yesterday. Reviewing his recent history he has had multiple urinary tract infections and has been treated with multiple different antibiotics in August and twice in January of this year. He was found to have a recurrent urinary tract infection and admitted for further care and IV antibiotics. Subjective/Events-last exam Pt reports that he is doing okay today. Reports that he feels "achy" but had no specific pains when asked. Review of Systems General: No Chills, No Other (fever) Pulmonary: No Dyspnea, No Cough Cardiovascular: No: Chest Pain, Palpitations Gastrointestinal: No: Nausea, Vomiting, Abdominal Pain Focused Exam Lactate Level 03/26/21 19:40: Lactic Acid Level 0.93 Objective Exam Vital Signs Vital Signs Date Time Temp Pulse Resp B/P (MAP) Pulse Ox O2 Delivery O2 Flow Rate FiO2 03/29/21 08:00 Room Air 03/29/21 08:00 36.6 95 20 108/70 (83) 96 Capillary Refill : Less Than 3 Seconds General Appearance: No Apparent Distress, WD/WN Respiratory: Lungs Clear, Normal Breath Sounds Cardiovascular: Regular Rate, Rhythm, No Murmur Gastrointestinal: Soft; No Guarding; Tenderness (complained of tenderness in all quadrants w/ light palpitation) Extremity: Calf Tenderness (left), Other (Left foot is erythematous w/ edema. Appears to have began on left great toe. ) Neurologic/Psychiatric: Alert, Normal Mood/Affect Results/Procedures Lab Patient resulted labs reviewed. Imaging: Reviewed Imaging Report Assessment/Plan Assessment and Plan Assess & Plan/Chief Complaint Sepsis from cellulitis UTI Continue IV vancomycin and rocephin Possible MRI to rule out osteomyelitis Echo ordered to rule out endocarditis Pt is being followed by surgery Diarrhea Currently on oral vancomycin due to indeterminate C.diif screen Continue until conclusive results are returned Dementia Continue home medication HTN CAD Continue home medication LEONARDA LEWIS MD 03/29/21 1828: Subjective HPI/CC On Admission Date Seen by Provider: Mar 29, 2021 Assessment/Plan Assessment and Plan Assess & Plan/Chief Complaint Sepsis T2DM with foot ulcer Possible osteomyelitis MSSA bacteremia Wound culture and blood cultures with MSSA Continue Rocephin Stop Vancomycin Obtain echo Repeat blood cultures XR without evidence of osteo ESR and CRP elevated Consider MRI Surgery following Sliding scale insulin E coli and Proteus UTI Both sensitive to Rocephin Continue Rocephin C diff diarrhea Continue oral Vancomycin HTN CAD HLD GERD Dementia Continue home meds DVT prophylaxis: already receiving therapeutic anticoagulation Diagnosis/Problems Diagnosis/Problems (1) Sepsis Status: Acute Qualifiers: Qualified Codes: A41.9 - Sepsis, unspecified organism (2) T2DM (type 2 diabetes mellitus) Status: Acute Qualifiers: Qualified Codes: E11.621 - Type 2 diabetes mellitus with foot ulcer; L97.509 - Non-pressure chronic ulcer of other part of unspecified foot with unspecified severity; 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 I reviewed and verified all information documented by the medical student and made modifications to such information, when appropriate. I personally performed the physical exam and medical decision making. PHOEBE COLINDRES Mar 29, 2021 11:14 LEONARDA LEWIS MD Mar 29, 2021 18:28
[2021-03-29 11:33] LABS: BASOPHILS % (AUTO) 0 % (0-10); EOSINOPHILS # (AUTO) 0.3 10^3/uL (0.0-0.3); EOSINOPHILS % (AUTO) 4 % (0-10); HEMATOCRIT 30 % (40-54); HEMOGLOBIN 9.8 g/dL (13.3-17.7); LYMPHOCYTES # (AUTO) 1.6 10^3/uL (1.0-4.0); LYMPHOCYTES % (AUTO) 24 % (12-44); MEAN CORPUSCULAR HEMOGLOBIN 30 pg (25-34); MEAN CORPUSCULAR HGB CONC 32 g/dL (32-36); MEAN CORPUSCULAR VOLUME 93 fL (80-99); MONOCYTES # (AUTO) 0.7 10^3/uL (0.0-1.0); MONOCYTES % (AUTO) 10 % (0-12); NEUTROPHILS # (AUTO) 4.2 10^3/uL (1.8-7.8); NEUTROPHILS % (AUTO) 62 % (42-75); PLATELET COUNT 215 10^3/uL (130-400); WHITE BLOOD COUNT 6.9 10^3/uL (4.3-11.0)
[2021-03-29 11:59] LABS: CALCIUM 8.8 MG/DL (8.5-10.1); CREATININE SERUM 0.8 MG/DL (0.60-1.30); POTASSIUM 3.5 MMOL/L (3.6-5.0)
[2021-03-29 12:00] VITALS: BP 99/57
[2021-03-29 12:05] LABS: ERYTHROCYTE SEDIMENTATION RATE 78 MM/HR (0-30)
[2021-03-29 12:09] LABS: VANCOMYCIN,TROUGH 8.9 UG/ML (10.0-20.0)
[2021-03-29] MEDS: VANCOMYCIN 1 GM/NS 250 ML IVPB IV SCH ×2 (14:42)
[2021-03-29] MEDS ORDERED: GADOBUTROL 10 MMOL/10 ML (GADAVIST) VIAL IV ONE (14:45)
[2021-03-29 15:52] VITALS: BP 114/68
[2021-03-29] MEDS: cefTRIAXone 2,000 MG in WATER (STERILE) FOR INJECTION 20 ML IV SCH (17:01)
[2021-03-29 19:05] VITALS: BP 115/63
[2021-03-29] MEDS: fluCOnazole (DIFLUCAN) 100 MG TAB PO SCH (20:00)
[2021-03-29] MEDS: ACETAMINOPHEN 325 MG TABLET PO PRN (20:00)
[2021-03-29] MEDS: ROSUVASTATIN 10 MG (CRESTOR) TABLET PO SCH (20:00)
[2021-03-29] MEDS: GABAPENTIN 100 MG (NEURONTIN) CAP PO SCH (20:01)
[2021-03-29] MEDS: DONEPEZIL 10 MG (ARICEPT) TAB PO SCH (20:01)
[2021-03-29] MEDS: MIRTAZAPINE 15 MG (REMERON) TAB PO SCH (20:01)
[2021-03-30 00:05] VITALS: BP 107/66
[2021-03-30] MEDS: VANCOMYCIN 125 MG CAPSULE PO SCH ×4 (00:15→18:16)
[2021-03-30] MEDS: VANCOMYCIN 1 GM/NS 250 ML IVPB IV SCH ×2 (01:36)
[2021-03-30 04:21] VITALS: BP 98/61
[2021-03-30] MEDS: inSUlin ASPART (NovoLOG) 1 UNIT/0.01 ML (CHARGE PER UNIT) SC SCH ×4 (06:00→21:46)
[2021-03-30] MEDS: LACTATED RINGERS 1,000 ML IV SCH ×2 (06:26→20:27)
[2021-03-30 08:20] VITALS: BP 93/57
--- NOTE | 2021-03-30 08:47 | Progress Note - Surgery ---
KOLE RUIZ MED STUDENT 03/30/21 0846: Subjective Date Seen by a Provider: Mar 30, 2021 Time Seen by a Provider: 08:10 Subjective/Events-last exam Patient is resting comfortably in bed. Per nurse, he was attempting to get out of bed multiple times yesterday. He pulled out his IV and attempted to pull out his suprapubic catheter. He went down for an MRI yesterday but became agitated and refused imaging. He is tolerating a soft diet. Review of Systems unable to obtain due to alzheimer's Objective Exam Vital Signs Date Time Temp Pulse Resp B/P (MAP) Pulse Ox O2 Delivery O2 Flow Rate FiO2 03/30/21 08:20 36.2 74 18 93/57 (69) 97 Room Air 03/30/21 04:21 36.6 68 20 98/61 (73) 96 Room Air 03/30/21 00:05 36.5 74 16 107/66 (80) 98 Room Air 03/29/21 20:01 Room Air 03/29/21 19:05 36.7 87 18 115/63 (80) 96 Room Air 03/29/21 15:52 37.0 93 20 114/68 (83) 96 Room Air 03/29/21 12:00 36.5 95 20 99/57 (71) 95 Room Air I & O 03/30/21 07:00 Intake Total 977 ml Output Total 2725 ml Balance -1748 ml Capillary Refill : Less Than 3 Seconds General Appearance: No Apparent Distress, Chronically ill HEENT: Moist Mucous Membranes Neck: Normal Inspection, Supple Respiratory: Lungs Clear, Normal Breath Sounds, No Accessory Muscle Use, No Respiratory Distress Cardiovascular: Regular Rate, Rhythm, Systolic Murmur Gastrointestinal: soft, no organomegaly, tenderness (with deep palpation, mostly lower abd near supra-pubic tube) Extremity: Other (left great toe with decreased erythema and edema compared to yesterday. However, appears to have more drainage from bottom of toe) Neurologic/Psychiatric: Alert, Normal Mood/Affect Skin: Other ( R toes amputated. scabs on bottom of left big toe) Lymphatic: No Adenopathy Results Lab Laboratory Tests 03/29/21 11:15: White Blood Count 6.9, Red Blood Count 3.28L, Hemoglobin 9.8L, Hematocrit 30L, Mean Corpuscular Volume 93, Mean Corpuscular Hemoglobin 30, Mean Corpuscular Hemoglobin Concent 32, Red Cell Distribution Width 14.9H, Platelet Count 215, Mean Platelet Volume 10.0, Immature Granulocyte % (Auto) 0, Neutrophils (%) (Auto) 62, Lymphocytes (%) (Auto) 24, Monocytes (%) (Auto) 10, Eosinophils (%) (Auto) 4, Basophils (%) (Auto) 0, Neutrophils # (Auto) 4.2, Lymphocytes # (Auto) 1.6, Monocytes # (Auto) 0.7, Eosinophils # (Auto) 0.3, Basophils # (Auto) 0.0, Immature Granulocyte # (Auto) 0.0, Erythrocyte Sedimentation Rate 78H, Sodium Level 143, Potassium Level 3.5L, Chloride Level 113H, Carbon Dioxide Level 22, Anion Gap 8, Blood Urea Nitrogen 17, Creatinine 0.80, Estimat Glomerular Filtration Rate 94, BUN/Creatinine Ratio 21, Glucose Level 108H, Calcium Level 8.8, C-Reactive Protein High Sensitivity 15.21H, Vancomycin Level Trough 8.9L 03/29/21 11:16: Glucometer 116H 03/29/21 15:57: Glucometer 131H 03/29/21 19:57: Glucometer 119H Microbiology 03/27/21 Gram Stain - Final, Resulted 03/27/21 Wound Culture - Preliminary, Resulted Mixed Bacterial Carmen Staphylococcus aureus 03/27/21 C. difficile DNA Amplification - Final, Complete 03/27/21 C. difficile GDH Antigen & Toxins - Final, Complete 03/26/21 Urine Culture - Final, Complete Escherichia coli Proteus mirabilis 03/26/21 Blood Culture - Final, Complete Staphylococcus aureus Assessment/Plan Assessment/Plan Assessment/Plan Cellulitis r/o Osteomyelitis UTI with indwelling supra-pubic tube Diarrhea Dementia with Alzheimer's and Parkinsons anemia C. Diff Plan is to order MRI today of L foot and ativan to help with agitation. Wound culture showed S. aureus. Continue vancomycin. L foot looks improved with decreased erythema and warmth. toe continues draining. Continue soft diet. Continue to monitor foot. [facility]. Stool positive for c. diff, contact precautions. Hgb dropped from 10.0to 9.8 today. WBC improving from 13.6 to 6.9. Repeat CBC tomorrow and monitor labs. JUAN MIRELES DO 03/30/21 0949: Subjective Time Seen by a Provider: 08:54 Subjective/Events-last exam Pt seen and examined; was confused yesterday and too combative for MRI. Seems calm this am. Review of Systems Pulmonary: No Dyspnea, No Cough Cardiovascular: No: Chest Pain, Palpitations Gastrointestinal: No: Nausea, Vomiting, Abdominal Pain Musculoskeletal: foot pain Objective Exam General Appearance: No Apparent Distress, Chronically ill Respiratory: Lungs Clear, Normal Breath Sounds, No Accessory Muscle Use, No Respiratory Distress Cardiovascular: Regular Rate, Rhythm, Systolic Murmur Gastrointestinal: soft, no organomegaly, tenderness (with deep palpation, mostly lower abd near supra-pubic tube) Extremity: Other (left great toe with decreased erythema and edema compared to yesterday. However, appears to have more drainage from bottom of toe) Assessment/Plan Assessment/Plan Assessment/Plan Cellulitis r/o Osteomyelitis UTI with indwelling supra-pubic tube Diarrhea Dementia with Alzheimer's and Parkinsons anemia C. Diff Plan is to order MRI today of L foot and ativan to help with agitation. Wound culture showed S. aureus. Continue vancomycin. L foot looks improved with decreased erythema and warmth. toe continues draining. Continue soft diet and w ill change depending on what MRI shows. Continue to monitor foot. [facility]. Stool positive for c. diff, contact precautions. Hgb dropped from 10.0to 9.8 today. WBC improving from 13.6 to 6.9. Repeat CBC tomorrow and monitor labs. Supervisory-Addendum Brief Verification & Attestation Participated in pt care: history, MDM, physical Personally performed: exam, history, MDM, supervision of care Care discussed with: Medical Student Procedures: n/a Verification and Attestation of Medical Student E/M Service A medical student performed and documented this service. I then reviewed and verified all information documented by the medical student and made modifications to such information, when appropriate. I personally performed a physical exam, medical decision making and then discussed any differences between the notes and made revisions as necessary to create one note. Juan Mireles , 03/30/21 , 09:48 KOLE RUIZ MED STUDENT Mar 30, 2021 08:46 JUAN MIRELES DO Mar 30, 2021 09:49
[2021-03-30] MEDS: ACETAMINOPHEN 325 MG TABLET PO PRN ×2 (09:46→13:20)
[2021-03-30] MEDS: APIXABAN 5 MG (ELIQUIS) TABLET PO SCH ×2 (09:46→20:12)
[2021-03-30] MEDS: PANTOPRAZOLE 40 MG (PROTONIX) TAB PO SCH (09:46)
[2021-03-30] MEDS ORDERED: LORazepam 1 MG (ATIVAN) TAB PO ONE (11:00)
--- NOTE | 2021-03-30 11:14 | Progress Note - Hospitalist ---
PHOEBE COLINDRES 03/30/21 1114: Subjective HPI/CC On Admission Patient is 76-year-old male with past medical history of Alzheimer's dementia, Parkinson's disease, hypertension, seizure disorder recent UTI who presented to the emergency department due to lethargy. He is unable to tell me much of what happened yesterday that brought him here. He stated "I do not like being told what to do." All history is obtained from records. He was brought in from the shelter due to lethargy that started around 3 PM yesterday. Reviewing his recent history he has had multiple urinary tract infections and has been treated with multiple different antibiotics in August and twice in January of this year. He was found to have a recurrent urinary tract infection and admitted for further care and IV antibiotics. Subjective/Events-last exam Pt reports that he is doing fine. Has been able to eat today. Says that he has been having problems with constipation Review of Systems General: No Chills, No Other (fever) Pulmonary: No Dyspnea, No Cough Cardiovascular: No: Chest Pain Gastrointestinal: Constipation; No: Nausea, Vomiting, Abdominal Pain Objective Exam Vital Signs Vital Signs Date Time Temp Pulse Resp B/P (MAP) Pulse Ox O2 Delivery O2 Flow Rate FiO2 03/30/21 08:20 36.2 74 18 93/57 (69) 97 Room Air Capillary Refill : Less Than 3 Seconds General Appearance: No Apparent Distress, WD/WN Respiratory: Lungs Clear, Normal Breath Sounds Cardiovascular: Regular Rate, Rhythm, Normal Peripheral Pulses Gastrointestinal: Soft; No Guarding; Other (reported tenderness w/ light palpitation in all 4 quadrants ) Extremity: No Pedal Edema, Other (left great toe erythrematous w/ edema. Open sore on plantar surface. No toes present on right foot) Neurologic/Psychiatric: Alert, Normal Mood/Affect Results/Procedures Lab Laboratory Tests 03/29/21 11:15 Patient resulted labs reviewed. Imaging: Reviewed Imaging Report Assessment/Plan Assessment and Plan Assess & Plan/Chief Complaint Diabetic foot ulcer MSSA bacteremia Possible osteomyelitis Continue IV rocephin IV vancomycin stopped MRI ordered to rule out osteomyelitis Echo done Pt is being followed by surgery E.coli and Proteus UTI Covered by rocephin Diarrhea Continue oral vancomycin due to positive C.diif screen Dementia GERD HTN CAD Continue home medication LEONARDA LEWIS MD 03/30/21 1209: Subjective HPI/CC On Admission Date Seen by Provider: Mar 30, 2021 Time Seen by Provider: 09:35 Assessment/Plan Assessment and Plan Assess & Plan/Chief Complaint Continue IV antibiotics for diabetic foot infection, possible osteomyelitis, MRI today to further evaluate, surgery following. Continuing oral Vanc for C diff diarrhea. 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 difficile diarrhea Status: Acute Supervisory-Addendum Brief Verification & Attestation Participated in pt care: history, MDM, physical Personally performed: exam, history, MDM, supervision of care Care discussed with: Medical Student Procedures: n/a Results interpretation: Verified all documentation A medical student performed and documented this service in my presence. I reviewed and verified all information documented by the medical student and made modifications to such information, when appropriate. I personally performed the physical exam and medical decision making. PHOEBE COLINDRES Mar 30, 2021 11:14 LEONARDA LEWIS MD Mar 30, 2021 12:09
[2021-03-30 11:46] VITALS: BP 98/56
--- NOTE | 2021-03-30 12:42 | Diagnostic Imaging Report ---
EXAM: MRI left foot without contrast. DATE: March 30, 2021. INDICATION: 76-year-old male, ulcer in the region of the first digit. Evaluation for osteomyelitis. COMPARISON: Left foot radiographs March 27, 2021. TECHNIQUE: Multiple noncontrast MRI sequences of the foot were obtained. FINDINGS: The first distal phalanx is absent. There is susceptibility artifact and a questionable skin defect volarly at the level of the first proximal phalanx which may correlate with the site of skin ulcer. There is fairly focal fluid signal at the level of the first proximal phalanx at its distal aspect and dorsally located measuring 19 x 9 x 18 mm in size, most consistent with an abscess. This is directly contacting the first proximal phalanx. There are areas of questionable cortical bone loss and slight loss of normal T1 marrow signal. There is edema in the first proximal phalanx throughout its extent, most likely reflecting osteomyelitis. There is a small first metatarsophalangeal joint effusion. There is no abnormal marrow signal in the first metatarsal or pronounced joint space loss. The additional bone marrow signal is unremarkable. The visualized tendons are intact and without evidence of tenosynovitis. There is diffuse fatty atrophy of the visualized foot musculature, most likely reflecting polyneuropathy. IMPRESSION: 1. Questionable volar skin contour deformity and abnormal susceptibility artifact at the level of the first distal phalanx which may relate to soft tissue ulcer. Susceptibility may reflect a small foreign body. There is a punctate foreign body seen on comparison radiographs of March 27, 2021. 2. Focal fluid collection adjacent to the dorsal aspect of the distal portion of the first distal phalanx, most compatible with abscess, measuring 19 x 9 x 18 mm in size. 3. Osteomyelitis involving the entire extent of the first proximal phalanx. 4. Small joint effusion at the first metatarsophalangeal joint which does raise concern for possibility of septic arthritis. There is no evidence of osteomyelitis of the first metatarsal. 5. No evidence of tenosynovitis. 6. Diffuse fatty atrophy of the imaged foot musculature, most likely reflecting polyneuropathy. Dictated by: Dictated on workstation # [id number]
[2021-03-30] MEDS: cefTRIAXone 2,000 MG in WATER (STERILE) FOR INJECTION 20 ML IV SCH (14:44)
[2021-03-30] MEDS ORDERED: HALOPERIDOL 2 MG (HALDOL) TABLET PO ONE (15:15)
[2021-03-30 15:50] VITALS: BP 114/62
[2021-03-30] MEDS: DONEPEZIL 10 MG (ARICEPT) TAB PO SCH (20:12)
[2021-03-30] MEDS: ROSUVASTATIN 10 MG (CRESTOR) TABLET PO SCH (20:12)
[2021-03-30] MEDS: fluCOnazole (DIFLUCAN) 100 MG TAB PO SCH (20:12)
[2021-03-30] MEDS: GABAPENTIN 100 MG (NEURONTIN) CAP PO SCH (20:12)
[2021-03-30] MEDS: HALOPERIDOL 2 MG (HALDOL) TABLET PO PRN (20:13)
[2021-03-30] MEDS: MIRTAZAPINE 15 MG (REMERON) TAB PO SCH (20:19)
[2021-03-31] MEDS ORDERED: TROUGH ORDER-PHARMACY XX NR
[2021-03-31 00:10] VITALS: BP 129/85
[2021-03-31] MEDS: VANCOMYCIN 125 MG CAPSULE PO SCH ×5 (01:33→23:08)
[2021-03-31] MEDS: inSUlin ASPART (NovoLOG) 1 UNIT/0.01 ML (CHARGE PER UNIT) SC SCH ×4 (05:42→22:30)
[2021-03-31 06:25] LABS: BASOPHILS # (AUTO) 0.1 10^3/uL (0.0-0.1); BASOPHILS % (AUTO) 1 % (0-10); EOSINOPHILS # (AUTO) 0.4 10^3/uL (0.0-0.3); EOSINOPHILS % (AUTO) 6 % (0-10); HEMATOCRIT 32 % (40-54); HEMOGLOBIN 10.1 g/dL (13.3-17.7); LYMPHOCYTES # (AUTO) 2.1 10^3/uL (1.0-4.0); LYMPHOCYTES % (AUTO) 31 % (12-44); MEAN CORPUSCULAR HEMOGLOBIN 29 pg (25-34); MEAN CORPUSCULAR HGB CONC 32 g/dL (32-36); MEAN CORPUSCULAR VOLUME 93 fL (80-99); MEAN PLATELET VOLUME 10.6 fL (9.0-12.2); MONOCYTES # (AUTO) 0.6 10^3/uL (0.0-1.0); MONOCYTES % (AUTO) 8 % (0-12); NEUTROPHILS # (AUTO) 3.7 10^3/uL (1.8-7.8); NEUTROPHILS % (AUTO) 54 % (42-75); PLATELET COUNT 265 10^3/uL (130-400); WHITE BLOOD COUNT 6.9 10^3/uL (4.3-11.0)
[2021-03-31 06:41] LABS: POTASSIUM 4.1 MMOL/L (3.6-5.0)
[2021-03-31 06:46] LABS: CREATININE SERUM 0.81 MG/DL (0.60-1.30)
--- NOTE | 2021-03-31 07:38 | Progress Note - Surgery ---
KOLE RUIZ MED STUDENT 03/31/21 0738: Subjective Date Seen by a Provider: Mar 31, 2021 Time Seen by a Provider: 07:00 Subjective/Events-last exam Hospital course: 76 y/o M to ED for UTI and AMS. He had fever and lethargy. On vanc and ceftriaxone for UTI. Hx of alzheimer's. limited ability to communicate. possible cellulitis of L big toe/foot. Right toes amputated. X-ray showed no signs of osteomyelitis. C. Diff positive, contact precautions. Wound culture of L toe is presumed MSSA. MRI showed osteomyelitis of L toe. Will do amputation of L toe today. Patient was resting comfortably in bed. He is calm and more alert today. He is able to tell me his name and that he is in a hospital in [place], [place]. He believes the year is 2019 and doesn't know why he's in the hospital. Per nurse, he became anxious overnight but calmed down after Haldol was administered. Patient tends to become agitated at night, most likely . They placed mitts on him because he kept attempting to pull out his suprapubic catheter. He had a BM yesterday that was more firm. He is nonambulatory. NPO since midnight for surgery. Review of Systems unable to obtain due to alzheimer's Objective Exam Vital Signs Date Time Temp Pulse Resp B/P (MAP) Pulse Ox O2 Delivery O2 Flow Rate FiO2 03/31/21 00:10 35.6 76 18 129/85 (100) 97 Room Air 03/30/21 20:15 Nasal Cannula 03/30/21 15:50 36.8 78 18 114/62 (79) 95 Room Air 03/30/21 11:46 36.2 73 20 98/56 (70) 96 Room Air 03/30/21 08:20 36.2 74 18 93/57 (69) 97 Room Air 03/30/21 08:00 Room Air I & O 03/31/21 07:00 Intake Total 1265 ml Output Total 2750 ml Balance -1485 ml Capillary Refill : Less Than 3 Seconds General Appearance: No Apparent Distress, WD/WN HEENT: Moist Mucous Membranes Neck: Normal Inspection, Supple Respiratory: Lungs Clear, Normal Breath Sounds Cardiovascular: Regular Rate, Rhythm, Normal Peripheral Pulses Gastrointestinal: soft, no organomegaly, tenderness (with deep palpation, mostly lower abd near supra-pubic tube) Extremity: No Pedal Edema, Other (decreased swelling, warmth, and erythema of left foot and toe, markedly improved, now only L toe.) Neurologic/Psychiatric: Alert, Normal Mood/Affect Skin: Other ( R toes amputated. scabs on bottom of left big toe) Lymphatic: No Adenopathy Results Lab Laboratory Tests 03/30/21 10:22: Glucometer 143H 03/30/21 15:59: Glucometer 142H 03/30/21 19:55: Glucometer 134H 03/31/21 05:18: White Blood Count 6.9, Red Blood Count 3.44L, Hemoglobin 10.1L, Hematocrit 32L, Mean Corpuscular Volume 93, Mean Corpuscular Hemoglobin 29, Mean Corpuscular Hemoglobin Concent 32, Red Cell Distribution Width 14.7H, Platelet Count 265, Mean Platelet Volume 10.6, Immature Granulocyte % (Auto) 1, Neutrophils (%) (Auto) 54, Lymphocytes (%) (Auto) 31, Monocytes (%) (Auto) 8, Eosinophils (%) (Auto) 6, Basophils (%) (Auto) 1, Neutrophils # (Auto) 3.7, Lymphocytes # (Auto) 2.1, Monocytes # (Auto) 0.6, Eosinophils # (Auto) 0.4H, Basophils # (Auto) 0.1, Immature Granulocyte # (Auto) 0.1 03/31/21 05:38: Glucometer 111H 03/31/21 05:40: Sodium Level 141, Potassium Level 4.1, Chloride Level 108H, Carbon Dioxide Level 24, Anion Gap 9, Blood Urea Nitrogen 16, Creatinine 0.81, Estimat Glomerular Filtration Rate 93, BUN/Creatinine Ratio 20, Glucose Level 107H, Calcium Level 9.0 Microbiology 03/29/21 Blood Culture - Preliminary, Resulted No growth 03/27/21 Gram Stain - Final, Complete 03/27/21 Wound Culture - Final, Complete Mixed Bacterial Carmen Staphylococcus aureus 03/27/21 C. difficile DNA Amplification - Final, Complete 03/27/21 C. difficile GDH Antigen & Toxins - Final, Complete 03/26/21 Urine Culture - Final, Complete Escherichia coli Proteus mirabilis Assessment/Plan Assessment/Plan Assessment/Plan Cellulitis r/o Osteomyelitis UTI with indwelling supra-pubic tube Diarrhea Dementia with Alzheimer's and Parkinsons anemia C. Diff Plan is to amputate L toe 2/2 osteomyelitis as seen on MRI. Wound culture showed S. aureus, presumed MSSA. Continue vancomycin. L foot looks markedly improved with decreased erythema, swelling, and warmth. Large toe scab has been removed, small scab has replaced it. NPO for surgery. Continue to monitor foot. Mitts covers on hands to prevent pulling out of suprapubic catheter. [facility]. Stool positive for c. diff, contact precautions. Hgb stable at 10.1. WBC stable at 6.9. Repeat CBC tomorrow and monitor labs. SHAVONROSA ELENAANGEL Keyon DO 03/31/21 1149: Subjective Time Seen by a Provider: 11:01 Subjective/Events-last exam Pt seen and examined, no complaints. He did ask for something to help have BM and wanted to eat. Review of Systems Pulmonary: No Dyspnea, No Cough Cardiovascular: No: Chest Pain Gastrointestinal: No: Nausea, Vomiting, Abdominal Pain Assessment/Plan Assessment/Plan Assessment/Plan Cellulitis and Osteomyelitis with possible Septic Arthritis of joint UTI with indwelling supra-pubic tube Diarrhea Dementia with Alzheimer's and Parkinsons anemia C. Diff Plan is to amputate L toe because of the osteomyelitis as seen on MRI; however, pt has been on Eliquis. Eliquis held today; will feed pt, make NPO after midnight and plan on amputation tomorrow. L foot looks markedly improved with decreased erythema, swelling, and warmth. Large toe scab has been removed, small scab has replaced it. Mitts covers on hands to prevent pulling out of suprapubic catheter. [facility]. Stool positive for c. diff, contact precautions. Hgb stable at 10.1. WBC stable at 6.9. Repeat CBC tomorrow and monitor labs. Supervisory-Addendum Brief Verification & Attestation Participated in pt care: history, MDM, physical Personally performed: exam, history, MDM, supervision of care Care discussed with: Medical Student Procedures: n/a Verification and Attestation of Medical Student E/M Service A medical student performed and documented this service. I then reviewed and verified all information documented by the medical student and made modificati ons to such information, when appropriate. I personally performed a physical exam, medical decision making and then discussed any differences between the notes and made revisions as necessary to create one note. Angel Mireles , 03/31/21 , 11:49 KOLE RUIZ MED STUDENT Mar 31, 2021 07:38 ANGEL MIRELES DO Mar 31, 2021 11:49
[2021-03-31 08:00] VITALS: BP 131/78
[2021-03-31] MEDS: APIXABAN 5 MG (ELIQUIS) TABLET PO SCH (08:56)
[2021-03-31] MEDS: PANTOPRAZOLE 40 MG (PROTONIX) TAB PO SCH (09:04)
[2021-03-31] MEDS ORDERED: LACTATED RINGERS 1,000 ML IV PRN (10:15)
[2021-03-31] MEDS ORDERED: BISACODYL 10 MG SUPP (DULCOLAX) PR ONE (11:00)
[2021-03-31] MEDS: LACTATED RINGERS 1,000 ML IV SCH ×2 (11:11→14:53)
--- NOTE | 2021-03-31 11:22 | Progress Note - Hospitalist ---
Subjective HPI/CC On Admission Date Seen by Provider: Mar 31, 2021 Time Seen by Provider: 09:20 Patient is 76-year-old male with past medical history of Alzheimer's dementia, Parkinson's disease, hypertension, seizure disorder recent UTI who presented to the emergency department due to lethargy. He is unable to tell me much of what happened yesterday that brought him here. He stated "I do not like being told what to do." All history is obtained from records. He was brought in from the [place] [facility] due to lethargy that started around 3 PM yesterday. Reviewing his recent history he has had multiple urinary tract infections and has been treated with multiple different antibiotics in August and twice in January of this year. He was found to have a recurrent urinary tract infection and admitted for further care and IV antibiotics. Subjective/Events-last exam He feels okay today. He reports left toe pain. He has no other complaints or concerns. Objective Exam Vital Signs Vital Signs Date Time Temp Pulse Resp B/P (MAP) Pulse Ox O2 Delivery O2 Flow Rate FiO2 03/31/21 08:00 Room Air 03/31/21 08:00 36.2 75 20 131/78 (95) 100 Capillary Refill : Less Than 3 Seconds General Appearance: No Apparent Distress, WD/WN Respiratory: Lungs Clear, Normal Breath Sounds, No Respiratory Distress Cardiovascular: Regular Rate, Rhythm, No Edema, No Murmur Gastrointestinal: Normal Bowel Sounds, Non Tender, Soft Extremity: Inflammation, Pedal Edema Neurologic/Psychiatric: Alert, Motor Weakness Skin: Erythema (Left great toe ulcer) Results/Procedures Lab Laboratory Tests 03/31/21 05:18 03/31/21 05:40 Patient resulted labs reviewed. Imaging: Reviewed Imaging Films, Reviewed Imaging Report Assessment/Plan Assessment and Plan Assess & Plan/Chief Complaint Sepsis Osteomyelitis MSSA bacteremia Wound culture and blood cultures with MSSA Continue Rocephin Echo showed no evidence of endocarditis Repeat blood cultures with no growth XR without evidence of osteo ESR and CRP elevated MRI showed osteomyelitis and likely small abscess Surgery following, planning for amputation T2DM with foot ulcer Sliding scale insulin E coli and Proteus UTI Both sensitive to Rocephin Continue Rocephin C diff diarrhea Continue oral Vancomycin HTN CAD HLD GERD Dementia Continue home meds DVT prophylaxis: already receiving therapeutic anticoagulation Diagnosis/Problems Diagnosis/Problems (1) Osteomyelitis of great toe of left foot Status: Acute (2) T2DM (type 2 diabetes mellitus) Status: Acute Qualifiers: Diabetes mellitus care home insulin use: with care home use Diabetes mellitus complication status: with skin complications Diabetes mellitus complication detail: with foot ulcer Qualified Codes: E11.621 - Type 2 diabetes mellitus with foot ulcer; L97.509 - Non-pressure chronic ulcer of other part of unspecified foot with unspecified severity; Z79.4 - half-way (current) use of insulin (3) MSSA bacteremia Status: Acute (4) C. difficile diarrhea Status: Acute LEONARDA LEWIS MD Mar 31, 2021 11:22
--- NOTE | 2021-03-31 12:44 | History & Physical-Surgical ---
History of Present Illness History of Present Illness Date of Admission Mar 26, 2021 at 21:40 I consulted on this patient on 03/31/21 12:38 Attending Physician Erin Lainez MD Admitting Physician Desmond Potts DO Consult Allergies and Home Medications Allergies Coded Allergies: Iodine and Iodide Containing Produc (Verified Allergy, Unknown, 09/06/20) Home Medications Acetaminophen 500 Mg Tablet, 500 MG PO TID, (Reported) Last Action: Reviewed Acetaminophen 650 Mg Tablet.er, 1,300 MG PO Q4H PRN for PAIN-MILD (1-4), (Reported) Last Action: Reviewed Acetaminophen 650 Mg Tablet.er, 650 MG PO Q8H PRN for PAIN-MILD (1-4), (Reported) Last Action: Reviewed Apixaban 5 Mg Tablet, 5 MG PO BID, (Reported) Last Action: Reviewed Asenapine Maleate 10 Mg Tab.subl, 10 MG SL HS, (Reported) Last Action: Reviewed Asenapine Maleate 5 Mg Tab.subl, 5 MG SL DAILY, (Reported) Last Action: Reviewed Aspirin 81 Mg Tablet.dr, 81 MG PO DAILY, (Reported) Last Action: Reviewed Bisacodyl 10 Mg Supp.rect, 10 MG RC DAILY PRN for CONSTIPATION-4TH LINE, (Reported) Last Action: Reviewed Calcium Carbonate/Vitamin D3 1 Each Tablet, 1 EACH PO BID, (Reported) Last Action: Reviewed Carboxymethylcellulose Sodium 15 Ml Drops, 2 DROPS OD BID, (Reported) Last Action: Reviewed Carboxymethylcellulose Sodium 15 Ml Drops, 2 DROPS OU Q6H PRN for DRY EYES, (Reported) Last Action: Reviewed Docusate Sodium 100 Mg Capsule, 100 MG PO BID, (Reported) Last Action: Reviewed Donepezil HCl 10 Mg Tablet, 10 MG PO HS, (Reported) Last Action: Reviewed Gabapentin 100 Mg Capsule, 100 MG PO 1900, (Reported) Last Action: Reviewed Insulin NPH Human Isophane 100 Unit/1 Ml Insuln.pen, 10 UNITS SQ HS, (Reported) Last Action: Reviewed Insulin NPH Human Isophane 100 Unit/1 Ml Insuln.pen, 5 UNIT SQ DAILY, (Reported) Last Action: Reviewed Levetiracetam 750 Mg Tablet, 750 MG PO BID, (Reported) Last Action: Reviewed Mag Hydrox/Al Hydrox/Simeth 30 Ml Oral.susp, 30 ML PO Q4H PRN for INDIGESTION, (Reported) Last Action: Reviewed Magnesium Hydroxide 2,400 Mg/10 Ml Oral.susp, 30 ML PO DAILY PRN for CONSTIPATION-7TH LINE, (Reported) Last Action: Reviewed Melatonin 3 Mg Capsule, 6 MG PO HS, (Reported) TAKES 2 (3MG) CAPS Last Action: Reviewed Mirtazapine 30 Mg Tablet, 30 MG PO HS, (Reported) Last Action: Reviewed Multivitamin 1 Each Tablet, 1 EACH PO DAILY, (Reported) Last Action: Reviewed Oxymetazoline HCl 15 Ml Mist, 2 SPRAYS NSEACH Q12H PRN for NOSEBLEEDS, (Reported) MAY SOAK COTTON BALL AND PACK Last Action: Reviewed Pantoprazole Sodium 40 Mg Tablet.dr, 40 MG PO DAILY, (Reported) Last Action: Reviewed Polyethylene Glycol 3350 17 Gm Powd.pack, 17 GM PO DAILY, (Reported) Last Action: Reviewed Rosuvastatin Calcium 10 Mg Tablet, 10 MG PO HS, (Reported) Last Action: Reviewed Sennosides 8.6 Mg Tablet, 8.6 MG PO HS, (Reported) Last Action: Reviewed Sodium Chloride/Aloe Vera 14.1 Gm Gel..gram., 1 SPRAY NSEACH BID, (Reported) Last Action: Reviewed Past Ptidbek-Ilfbhf-Mplpwx Hx Patient Social History Employed/Student: retired Tobacco Use?: No Smoking Status: Former Smoker Smokeless Tobacco Frequency: Unknown if Ever Used Use of E-Cig and/or Vaping Mumtaz: Unknown if Ever Used Substance use?: No Alcohol Use?: No Pt feels they are or have been: No Immunizations Up To Date First/Initial COVID19 Vaccinat: 09/03/20 Second COVID19 Vaccination Ricardo: 09/24/20 Tetanus Booster (TDap): Less Than 5 Years Hepatitis A: No Hepatitis B: No Seasonal Allergies Seasonal Allergies: No Current Status Advance Directives: No Advance Directive Location: FACILITY RECORDS. Communicates: Verbally Primary Language: Estonian Preferred Spoken Language: Estonian Is interpretation needed?: No Implanted or Applied Medical D: None Past Medical History Surgeries: Amputation (all toes on R foot), Orthopedic Pneumonia, COPD High Cholesterol, Hypertension Dementia, Neuropathy, Parkinson's Disease, Seizure Disorder Prostate Problems, Bladder Infection, Kidney Stones Gastroesophageal Reflux, Chronic Constipation Amputee, Arthritis, Fibromyalgia Diabetes, Insulin dep Hearing Impairment: Hard of Hearing Sleep Difficulties, Depression Blood Disorders: No Family Medical History Reviewed Nursing Family Hx Other Conditions/Hx (unable to obtain, pt can't answer questions) Parents Physical Exam Vital Signs Vital Signs - First Documented 03/26/21 19:30 Temp 37.0 Pulse 55 Resp 16 B/P (MAP) 112/62 (79) Pulse Ox 98 O2 Delivery Room Air Capillary Refill : Less Than 3 Seconds Height, Weight, BMI Height: '" Weight: lbs. oz. kg; 26.10 BMI Method: Data Review Labs Laboratory Tests 03/30/21 15:59: Glucometer 142H 03/30/21 19:55: Glucometer 134H 03/31/21 05:18: White Blood Count 6.9, Red Blood Count 3.44L, Hemoglobin 10.1L, Hematocrit 32L, Mean Corpuscular Volume 93, Mean Corpuscular Hemoglobin 29, Mean Corpuscular Hemoglobin Concent 32, Red Cell Distribution Width 14.7H, Platelet Count 265, Mean Platelet Volume 10.6, Immature Granulocyte % (Auto) 1, Neutrophils (%) (Auto) 54, Lymphocytes (%) (Auto) 31, Monocytes (%) (Auto) 8, Eosinophils (%) (Auto) 6, Basophils (%) (Auto) 1, Neutrophils # (Auto) 3.7, Lymphocytes # (Auto) 2.1, Monocytes # (Auto) 0.6, Eosinophils # (Auto) 0.4H, Basophils # (Auto) 0.1, Immature Granulocyte # (Auto) 0.1 03/31/21 05:38: Glucometer 111H 03/31/21 05:40: Sodium Level 141, Potassium Level 4.1, Chloride Level 108H, Carbon Dioxide Level 24, Anion Gap 9, Blood Urea Nitrogen 16, Creatinine 0.81, Estimat Glomerular Filtration Rate 93, BUN/Creatinine Ratio 20, Glucose Level 107H, Calcium Level 9.0 03/31/21 10:05: Influenza Type A (RT-PCR) Not Detected, Influenza Type B (RT-PCR) Not Detected, SARS-CoV-2 RNA (RT-PCR) Not Detected 03/31/21 11:05: Glucometer 110 Microbiology 03/29/21 Blood Culture - Preliminary, Resulted No growth 03/27/21 Gram Stain - Final, Complete 03/27/21 Wound Culture - Final, Complete Mixed Bacterial Carmen Staphylococcus aureus 03/27/21 C. difficile DNA Amplification - Final, Complete 03/27/21 C. difficile GDH Antigen & Toxins - Final, Complete 03/26/21 Urine Culture - Final, Complete Escherichia coli Proteus mirabilis Assessment/Plan Assessment/Plan Assessment/Plan Cellulitis and Osteomyelitis with possible Septic Arthritis of joint UTI with indwelling supra-pubic tube Diarrhea Dementia with Alzheimer's and Parkinsons anemia C. Diff Plan is to amputate L toe because of the osteomyelitis as seen on MRI; however, pt has been on Eliquis. Eliquis held today; will feed pt, make NPO after midnight and plan on amputation tomorrow. L foot looks markedly improved with decreased erythema, swelling, and warmth. Large toe scab has been removed, small scab has replaced it. Mitts covers on hands to prevent pulling out of suprapubic catheter. [facility]. Stool positive for c. diff, contact precautions. Hgb stable at 10.1. WBC stable at 6.9. Repeat CBC tomorrow and monitor labs. DEMOND CORRAL Mar 31, 2021 12:44
[2021-03-31] MEDS: HALOPERIDOL 2 MG (HALDOL) TABLET PO PRN (13:20)
[2021-03-31] MEDS ORDERED: HALOPERIDOL 2 MG (HALDOL) TABLET PO ONE (14:45)
[2021-03-31] MEDS: cefTRIAXone 2,000 MG in WATER (STERILE) FOR INJECTION 20 ML IV SCH (14:56)
[2021-03-31 15:36] VITALS: BP 135/74
[2021-03-31] MEDS ORDERED: ZIPRASIDONE 20 MG INJ (GEODON) VIAL IM PRN (18:00)
[2021-03-31] MEDS ORDERED: WATER (STERILE) FOR INJ 10 ML BTL INJ SCH (18:00)
[2021-03-31] MEDS: DONEPEZIL 10 MG (ARICEPT) TAB PO SCH (20:46)
[2021-03-31] MEDS: MIRTAZAPINE 15 MG (REMERON) TAB PO SCH (20:46)
[2021-03-31] MEDS: ROSUVASTATIN 10 MG (CRESTOR) TABLET PO SCH (20:46)
[2021-03-31] MEDS: GABAPENTIN 100 MG (NEURONTIN) CAP PO SCH (20:46)
[2021-03-31 23:09] VITALS: BP 126/81
[2021-04-01] VITALS (8 sets, daily range): BP systolic 108–134; BP diastolic 69–81
[2021-04-01] MEDS: VANCOMYCIN 125 MG CAPSULE PO SCH ×3 (05:00→17:25)
[2021-04-01] MEDS: LACTATED RINGERS 1,000 ML IV SCH ×2 (05:00→20:00)
[2021-04-01] MEDS: inSUlin ASPART (NovoLOG) 1 UNIT/0.01 ML (CHARGE PER UNIT) SC SCH ×4 (05:07→21:22)
--- NOTE | 2021-04-01 06:20 | Progress Note - Surgery ---
KOLE RUIZ MED STUDENT 04/01/21 0620: Subjective Date Seen by a Provider: Apr 01, 2021 Time Seen by a Provider: 06:05 Subjective/Events-last exam Hospital course: 76 y/o M to ED for UTI and AMS. He had fever and lethargy. On vanc and ceftriaxone for UTI. Hx of alzheimer's. limited ability to communicate. possible cellulitis of L big toe/foot. Right toes amputated. X-ray showed no signs of osteomyelitis. C. Diff positive, contact precautions. Wound culture of L toe is presumed MSSA. MRI showed osteomyelitis of L toe. Attempted surgery ye but cancelled because pt was still on eloquis. Today: Patient is resting comfortably in bed. Per nurse, he has been NPO since midnight and has been off eloquis since 20:12 on 03/30. He had a firmer bowel movement. He has been attempting to pull out his suprapubic cath. Review of Systems unable to obtain due to alzheimer's Objective Exam Vital Signs Date Time Temp Pulse Resp B/P (MAP) Pulse Ox O2 Delivery O2 Flow Rate FiO2 03/31/21 23:09 36.0 89 20 126/81 (96) 97 Room Air 03/31/21 20:00 Room Air 03/31/21 15:36 36.0 133 20 135/74 (94) 96 Room Air 03/31/21 08:00 Room Air 03/31/21 08:00 36.2 75 20 131/78 (95) 100 Room Air I & O 04/01/21 07:00 Intake Total 3917 ml Output Total 3650 ml Balance 267 ml Capillary Refill : Less Than 3 Seconds General Appearance: No Apparent Distress, WD/WN Neck: Normal Inspection, Supple Respiratory: Chest Non Tender, Lungs Clear, Normal Breath Sounds, No Respiratory Distress Cardiovascular: Regular Rate, Rhythm, No Murmur Gastrointestinal: soft, tenderness (with deep palpation, mostly lower abd near supra-pubic tube) Extremity: Non Tender, Other (no swelling in leg. swollen big toe. No erythema or warmth in L LE.) Neurologic/Psychiatric: Alert, Motor Weakness Skin: Erythema (Left great toe ulcer) Lymphatic: No Adenopathy Results Lab Laboratory Tests 03/31/21 10:05: Influenza Type A (RT-PCR) Not Detected, Influenza Type B (RT-PCR) Not Detected, SARS-CoV-2 RNA (RT-PCR) Not Detected 03/31/21 11:05: Glucometer 110 03/31/21 15:39: Glucometer 140H 03/31/21 22:28: Glucometer 120H 04/01/21 05:06: Glucometer 106 Microbiology 03/29/21 Blood Culture - Preliminary, Resulted No growth 03/27/21 Gram Stain - Final, Complete 03/27/21 Wound Culture - Final, Complete Mixed Bacterial Carmen Staphylococcus aureus 03/27/21 C. difficile DNA Amplification - Final, Complete 03/27/21 C. difficile GDH Antigen & Toxins - Final, Complete 03/26/21 Urine Culture - Final, Complete Escherichia coli Proteus mirabilis Assessment/Plan Assessment/Plan Assessment/Plan Cellulitis and Osteomyelitis with possible Septic Arthritis of joint UTI with indwelling supra-pubic tube Diarrhea Dementia with Alzheimer's and Parkinsons anemia C. Diff Plan is to amputate L toe because of the osteomyelitis as seen on MRI; however, pt has been on Eliquis. Eliquis held on 03/30; made NPO after midnight and plan on amputation today. L foot looks markedly improved with decreased erythema, swelling, and warmth. Large toe scab has been removed, small scab has replaced it. Mitts covers on hands to prevent pulling out of suprapubic catheter. [facility]. Stool positive for c. diff, contact precautions. Repeat CBC tomorrow and monitor labs. JUAN MIRELES DO 04/01/21 0932: Subjective Time Seen by a Provider: 09:24 Subjective/Events-last exam Pt seen and examined, down in [facility] waiting to go to OR for amputation Review of Systems pt not answering today Objective Exam General Appearance: No Apparent Distress, Chronically ill Respiratory: Lungs Clear, Normal Breath Sounds, No Respiratory Distress Gastrointestinal: soft, tenderness (with deep palpation, mostly lower abd near supra-pubic tube) Extremity: Other (no swelling in leg. swollen big toe, with mild erythema and some drainage) Assessment/Plan Assessment/Plan Assessment/Plan Osteomyelitis - left foot marked and will go to OR for amputation, DPOA signed consent Supervisory-Addendum Brief Verification & Attestation Participated in pt care: history, MDM, physical Personally performed: exam, history, MDM, supervision of care Care discussed with: Medical Student Procedures: n/a Verification and Attestation of Medical Student E/M Service A medical student performed and documented this service. I then reviewed and verified all information documented by the medical student and made modifica tions to such information, when appropriate. I personally performed a physical exam, medical decision making and then discussed any differences between the notes and made revisions as necessary to create one note. Juan Mireles , 04/01/21 , 09:32 KOLE RUIZ MED STUDENT Apr 01, 2021 06:20 JUAN MIRELES DO Apr 01, 2021 09:32
[2021-04-01] MEDS: LIDOCAINE/EPI 1%-1:100,000 (XYLOCAINE) 20ML ONE ×2 (07:51→09:53)
[2021-04-01] MEDS: PANTOPRAZOLE 40 MG (PROTONIX) TAB PO SCH (07:52)
[2021-04-01] MEDS ORDERED: fentaNYL INJ 100 MCG/2 ML AMP ONE (08:21)
[2021-04-01] MEDS ORDERED: PROPOFOL INJECTION 50 ML IV ONE (08:21)
[2021-04-01] MEDS: LIDOCAINE/EPI 1%-1:200,000 (XYLOCAINE) 30 ML VIAL ONE ×2 (09:18→09:43)
[2021-04-01] MEDS ORDERED: PHENYLEPHRINE 100 MCG/ML 10 ML (ANESTHESIA) SYR ONE (09:43)
--- NOTE | 2021-04-01 10:10 | Progress Note-Post Operative ---
Post-Operative Progess Note Surgeon (s)/Sign Artist (s) Surgeon ANGEL MUSA DO Sign Artist: CASTRO Araiza Pre-Operative Diagnosis Left 1st toe Osteomyelitis Post-Operative Diagnosis Same pending path Procedure & Operative Findings Date of Procedure 04/01/21 Procedure Performed/Findings Left 1st toe amputation Anesthesia Type IV sedation by ASSISTANT [employer] PUBLIC DEFENDER Estimated Blood Loss Estimated blood loss (mL): scant Specimens/Packing Specimens Removed left 1st toe ANGEL MUSA DO Apr 01, 2021 10:10
[2021-04-01] MEDS ORDERED: ONDANSETRON 4 MG/2 ML (SDV) Z0FRAN IVP PRN (10:30)
[2021-04-01] MEDS: ACETAMINOPHEN 325 MG TABLET PO PRN ×2 (12:05→17:25)
--- NOTE | 2021-04-01 13:25 | Anesthesia-General Post-Op ---
MAC Patient Condition Mental Status/LOC: Same as Preop Cardiovascular: Satisfactory Nausea/Vomiting: Absent Respiratory: Satisfactory Pain: Controlled Complications: Absent Post Op Complications Complications None Follow Up Care/Instructions Patient Instructions None needed. Anesthesiology Discharge Order Discharge Order Patient is doing well, no complaints, stable vital signs, no apparent adverse anesthesia problems. No complications reported per nursing. CHRISTIN GIBBONS CRNA Apr 01, 2021 13:25
[2021-04-01] MEDS: ceFAZolin 1,000 MG/SWFI 10 ML IV PUSH IV SCH ×4 (14:22→21:25)
--- NOTE | 2021-04-01 18:23 | Physician Query Clarification ---
Physician Query-General Query to Physician: The medical record reflects the following clinical evidence: Clinical Indicators: Documentation on Nursing admission assessment of stage I pressure ulcer to Coccyx/Sacrum Risk Factor(s): Chronic Illness, poor oral intake, Dementia Treatment: turn q 2, frequent skin assessments, Ensure enlive 1. Pressure ulcer of sacral region, stage 1, present on admission 2. Other explanation of clinical findings 3. Unable to determine (no explanation for clinical findings) Please clarify and document your clinical opinion in the progress notes and discharge summary including the definitive and/or presumptive diagnosis, (suspected or probable), related to the above clinical findings. Please include clinical findings supporting your diagnosis. Vanessa Falcon MSN, RN Clinical Panel Machine Setter [phone] [email or web address] PHYSICIAN RESPONSE: Based on the clinical findings in the record, please respond to the query above on this document as an addendum. Physician Response: Physician Response 1. Pressure ulcer of sacral region, stage 1, present on admission If you have questions please contact: Sterilization Tech: Ext: Thank you for your time and cooperation. Clinical Panel Machine Setter/Sterilization Tech This is a permanent part of the medical record VANESSA FALCON Apr 01, 2021 18:23 ROBB DIOR MD Apr 06, 2021 14:26
--- NOTE | 2021-04-01 18:40 | Physician Query Clarification ---
Physician Query-General Query to Physician: The medical record reflects the following clinical scenario: The patient, in the setting of History/Risk factors, Sepsis, UTI, Dementia, Parkinsons Clinical Findings "Lethargy", "answering questions inappropriately", Staff from home reporting "not his usual behavior". GCS 14 on arrival, became more alert but also restless/slightly agitated trying to get out of bed, was awake and interacting with staff after haldol dose. Treatment IV ABX, IV fluids, Neuro assessments, Haldol Question: Do you agree with the impression of Metabolic encephalopathy per ER provider Dr. Dagoberto Kemp? 1. Yes; will document Metabolic encephalopathy in the setting of UTI/Sepsis, Present on admission in the Progress Notes 2. No; will continue current documentation in the Progress Notes 3. Other; will document explanation of clinical findings 4. Clinically undetermined; no explanation for clinical findings Please clarify and document your clinical opinion in the Progress Notes and Discharge Summary including the definitive and/or presumptive diagnosis, (suspected or probable), related to the above clinical findings. Please include clinical findings supporting your diagnosis. In responding to this query, please exercise your independent professional judgment. The purpose of this communication is to more accurately reflect the complexity of your patients condition. The fact that a question is asked does not imply that any particular answer is desired or expected. Please remember a lack of response to the above will prompt a phone page by CDI/coding staff Thank you for timely response to this clarification. Vanessa Falcon MSN, RN Clinical Aquatic Laborer [phone] PHYSICIAN RESPONSE: Based on the clinical findings in the record, please respond to the query above on this document as an addendum. Physician Response: Physician Response 1 If you have questions please contact: Outside Physical Damage Appraiser: Ext: Thank you for your time and cooperation. Clinical Aquatic Laborer/Outside Physical Damage Appraiser This is a permanent part of the medical record VANESSA FALCON Apr 01, 2021 18:40 ROBB DIOR MD Apr 06, 2021 14:26
[2021-04-01] MEDS: ROSUVASTATIN 10 MG (CRESTOR) TABLET PO SCH (19:58)
[2021-04-01] MEDS: GABAPENTIN 100 MG (NEURONTIN) CAP PO SCH (19:58)
[2021-04-01] MEDS: DONEPEZIL 10 MG (ARICEPT) TAB PO SCH (19:58)
[2021-04-01] MEDS: MIRTAZAPINE 15 MG (REMERON) TAB PO SCH (19:59)
--- NOTE | 2021-04-01 21:42 | OPERATIVE REPORT ---
DATE OF SERVICE: 04/01/2021 PREOPERATIVE DIAGNOSIS: Left first toe osteomyelitis. POSTOPERATIVE DIAGNOSIS: Left first toe osteomyelitis, pending pathology. PROCEDURE: Left first toe amputation at the metatarsophalangeal joint. SURGEON: Juan Mireles DO BUCKLE ASSEMBLER: LICO Araiza. ANESTHESIA: IV sedation by the DAY LIGHT RELIEF OPERATOR. BLOOD LOSS: Scant. FLUIDS: Per anesthesia. SPECIMEN: First toe. INDICATION FOR PROCEDURE: The patient is a 76-year-old male who had an abscess drainage, erythema, swelling of the left first toe. It already had a previous partial resection of the toe. MRI showed osteomyelitis, need to get this removed and possibly septic arthritis. FINDINGS: The patient had first toe removed. It did not appear to have any septic arthritis at the metatarsophalangeal joint. PROCEDURE NOTE: After informed consent was obtained, the patient was brought to the operating room, placed on the table in the supine position. He was sterilely prepped and draped in normal fashion. A digital nerve block was then performed on the left first toe as well as the forefoot block with local lidocaine, then made an incision around the toe with a #15 blade, carried down through the skin into subcutaneous tissue, then deepened down to subcutaneous tissue with Bovie electrocautery. We did this about fci up the distal phalanx of the toe and then dissected down towards the metatarsophalangeal joint coming right across here, going around to get through the subcutaneous fat and tendons. There was very scant bleeding. Once we were at the joint and able to carefully pull this back, had already done a circumferential incision with the knife and then continued with the Bovie electrocautery, able to then carefully take this off. The joint space looked good, did not appear to be any inflammation, purulence or any destruction of the head of the first metatarsal. The toe was completely removed and sent to pathology, irrigated with lidocaine with saline and then elected to close the skin with a 2-0 Prolene, three vertical mattress sutures, closed nicely. The area was then cleaned and dried and pressure dressing placed. The patient tolerated the procedure and transferred to recovery room in stable condition. Sponge, instrument and needle count correct at the end of the case. Job ID: [id number] DocumentID: [id number] Dictated Date: 04/01/2021 14:57:06 Wound Treatment Rn Date: 04/01/2021 21:41:48 Dictated By: JUAN MIRELES DO
[2021-04-02] MEDS: VANCOMYCIN 125 MG CAPSULE PO SCH ×5 (00:26→22:56)
[2021-04-02] MEDS: inSUlin ASPART (NovoLOG) 1 UNIT/0.01 ML (CHARGE PER UNIT) SC SCH ×4 (05:39→21:19)
[2021-04-02] MEDS: ceFAZolin 1,000 MG/SWFI 10 ML IV PUSH IV SCH ×6 (05:48→21:55)
[2021-04-02 07:29] VITALS: BP 129/82
[2021-04-02 08:54] LABS: BASOPHILS # (AUTO) 0.1 10^3/uL (0.0-0.1); BASOPHILS % (AUTO) 1 % (0-10); EOSINOPHILS # (AUTO) 0.5 10^3/uL (0.0-0.3); EOSINOPHILS % (AUTO) 6 % (0-10); HEMATOCRIT 35 % (40-54); HEMOGLOBIN 10.9 g/dL (13.3-17.7); LYMPHOCYTES # (AUTO) 1.9 10^3/uL (1.0-4.0); LYMPHOCYTES % (AUTO) 22 % (12-44); MEAN CORPUSCULAR HEMOGLOBIN 30 pg (25-34); MEAN CORPUSCULAR HGB CONC 32 g/dL (32-36); MEAN CORPUSCULAR VOLUME 93 fL (80-99); MEAN PLATELET VOLUME 9.2 fL (9.0-12.2); MONOCYTES # (AUTO) 0.8 10^3/uL (0.0-1.0); MONOCYTES % (AUTO) 9 % (0-12); NEUTROPHILS # (AUTO) 5.5 10^3/uL (1.8-7.8); NEUTROPHILS % (AUTO) 62 % (42-75); PLATELET COUNT 327 10^3/uL (130-400); WHITE BLOOD COUNT 8.8 10^3/uL (4.3-11.0)
[2021-04-02] MEDS: KCL 20 MEQ TAB (K-DUR) PO SCH (09:09)
[2021-04-02] MEDS: PANTOPRAZOLE 40 MG (PROTONIX) TAB PO SCH (09:09)
[2021-04-02 09:13] LABS: POTASSIUM 3.9 MMOL/L (3.6-5.0)
[2021-04-02 09:14] LABS: CALCIUM 9.3 MG/DL (8.5-10.1)
--- NOTE | 2021-04-02 09:16 | Progress Note - Surgery ---
KOLE RUIZ MED STUDENT 04/02/21 0916: Subjective Date Seen by a Provider: Apr 02, 2021 Time Seen by a Provider: 09:15 Subjective/Events-last exam Hospital course: 76 y/o M to ED for UTI and AMS. He had fever and lethargy. On vanc and ceftriaxone for UTI. Hx of alzheimer's. limited ability to communicate. possible cellulitis of L big toe/foot. Right toes amputated. X-ray showed no signs of osteomyelitis. C. Diff positive, contact precautions. Wound culture of L toe is presumed MSSA. MRI showed osteomyelitis of L toe. Surgical amputation of L toe yesterday. Patient is resting comfortably in bed this morning. Per nurse, the dressing is clean without drainage. He had a soft BM yesterday, had not attempted to pull out his suprapubic catheter. He is not ambulating. Review of Systems unable to obtain due to alzheimer's Objective Exam Vital Signs Date Time Temp Pulse Resp B/P (MAP) Pulse Ox O2 Delivery O2 Flow Rate FiO2 04/02/21 07:29 37.4 88 18 129/82 (98) 97 Room Air 04/01/21 23:21 36.3 92 17 134/81 (98) 98 Room Air 04/01/21 21:59 97 Room Air 04/01/21 19:30 Room Air 04/01/21 16:41 36.0 87 18 119/69 (86) 97 Room Air 04/01/21 10:45 35.8 77 18 109/69 (82) 100 Room Air 04/01/21 10:40 Room Air 04/01/21 10:40 20 120/72 (88) 96 Room Air 04/01/21 10:30 20 120/74 (89) 96 Room Air 04/01/21 10:30 Room Air 04/01/21 10:20 20 108/73 (85) 98 OxyMask 2 04/01/21 10:16 36.6 20 109/78 (88) 100 OxyMask 4 04/01/21 10:16 OxyMask 4 I & O 04/02/21 07:00 Intake Total 2180 ml Output Total 3100 ml Balance -920 ml Capillary Refill : Less Than 3 Seconds General Appearance: No Apparent Distress, Chronically ill, Thin Neck: Normal Inspection, Supple Respiratory: Lungs Clear, Normal Breath Sounds, No Respiratory Distress Cardiovascular: Regular Rate, Rhythm, No Murmur Gastrointestinal: soft, tenderness (with deep palpation, mostly lower abd near supra-pubic tube) Extremity: Other (bandage CTI on amputated L toe) Neurologic/Psychiatric: Alert, Motor Weakness Lymphatic: No Adenopathy Results Lab Laboratory Tests 04/01/21 10:25: Glucometer 92 04/01/21 16:39: Glucometer 144H 04/01/21 20:01: Glucometer 130H 04/02/21 05:34: Glucometer 96 04/02/21 08:44: White Blood Count 8.8, Red Blood Count 3.70L, Hemoglobin 10.9L, Hematocrit 35L, Mean Corpuscular Volume 93, Mean Corpuscular Hemoglobin 30, Mean Corpuscular Hemoglobin Concent 32, Red Cell Distribution Width 14.6H, Platelet Count 327, Mean Platelet Volume 9.2, Immature Granulocyte % (Auto) 1, Neutrophils (%) ( Auto) 62, Lymphocytes (%) (Auto) 22, Monocytes (%) (Auto) 9, Eosinophils (%) (Auto) 6, Basophils (%) (Auto) 1, Neutrophils # (Auto) 5.5, Lymphocytes # (Auto) 1.9, Monocytes # (Auto) 0.8, Eosinophils # (Auto) 0.5H, Basophils # (Auto) 0.1, Immature Granulocyte # (Auto) 0.1, Sodium Level 142, Potassium Level 3.9, Chloride Level 106, Glucose Level 135H, Calcium Level 9.3 Microbiology 03/31/21 MRSA Screen - Final, Complete MRSA not isolated 03/29/21 Blood Culture - Preliminary, Resulted No growth 03/27/21 Gram Stain - Final, Complete 03/27/21 Wound Culture - Final, Complete Mixed Bacterial Carmen Staphylococcus aureus 03/27/21 C. difficile DNA Amplification - Final, Complete 03/27/21 C. difficile GDH Antigen & Toxins - Final, Complete 03/26/21 Urine Culture - Final, Complete Escherichia coli Proteus mirabilis Assessment/Plan Assessment/Plan Assessment/Plan Osteomyelitis s/p L toe amputation L toe amputated yesterday. Patient tolerated procedure well. Dressings are clean, and intact. Pain meds PRN. Keep area dry. Change dressing if increased bleeding or drainage. Diet was restarted. Will sign off to Dr. Lainez. Will see patient as outpatient to remove stitches JUAN MIRELES DO 04/02/21 1227: Subjective Time Seen by a Provider: 12:10 Subjective/Events-last exam Pt seen and examined, eating his lunch in bed and appears comfortable. Review of Systems unable to obtain due to alzheimer's Objective Exam General Appearance: No Apparent Distress, Chronically ill Respiratory: Lungs Clear, Normal Breath Sounds, No Respiratory Distress Cardiovascular: Regular Rate, Rhythm, No Murmur Gastrointestinal: soft, tenderness (with deep palpation, mostly lower abd near supra-pubic tube) Extremity: Other (bandage CTI on amputated L toe) Neurologic/Psychiatric: Motor Weakness Assessment/Plan Assessment/Plan Assessment/Plan Osteomyelitis s/p L toe amputation L toe amputated yesterday. Patient tolerated procedure well. Dressings are clean, and intact. Pain meds PRN. Keep area dry. Change dressing if increased bleeding or drainage. Diet was restarted. Will sign off to Dr. Lainez. Will see patient as outpatient to remove stitches Supervisory-Addendum Brief Verification & Attestation Participated in pt care: history, MDM, physical Personally performed: exam, history, MDM, supervision of care Care discussed with: Medical Student Procedures: n/a Verification and Attestation of Medical Student E/M Service A medical student performed and documented this service. I then reviewed and verified all information documented by the medical student and made modifications to such information, when appropriate. I personally performed a physical exam, medical decision making and then discussed any differences between the notes and made revisions as necessary to create one note. Juan Mireles , 04/02/21 , 12:27 KOLE RUIZ MED STUDENT Apr 02, 2021 09:16 JUAN MIRELES DO Apr 02, 2021 12:27
[2021-04-02 09:19] LABS: CREATININE SERUM 0.93 MG/DL (0.60-1.30)
[2021-04-02 09:21] LABS: MAGNESIUM 1.9 MG/DL (1.6-2.4)
[2021-04-02] MEDS: POTASSIUM CL 10MEQ/50ML IVPB 50 ML IV SCH (09:35)
[2021-04-02] MEDS: MAGNESIUM 1 GM/100 ML IVPB 100 ML IV SCH (09:35)
--- NOTE | 2021-04-02 13:18 | Progress Note - Hospitalist ---
Subjective HPI/CC On Admission Date Seen by Provider: Apr 02, 2021 Time Seen by Provider: 10:15 Patient is 76-year-old male with past medical history of Alzheimer's dementia, Parkinson's disease, hypertension, seizure disorder recent UTI who presented to the emergency department due to lethargy. He is unable to tell me much of what happened yesterday that brought him here. He stated "I do not like being told what to do." All history is obtained from records. He was brought in from the assisted due to lethargy that started around 3 PM yesterday. Reviewing his recent history he has had multiple urinary tract infections and has been treated with multiple different antibiotics in August and twice in January of this year. He was found to have a recurrent urinary tract infection and admitted for further care and IV antibiotics. Subjective/Events-last exam He is confused, but easily redirectable. He reports pain in his hip. He denies breathing trouble. Objective Exam Vital Signs Vital Signs Date Time Temp Pulse Resp B/P (MAP) Pulse Ox O2 Delivery O2 Flow Rate FiO2 04/02/21 08:00 97 Room Air 04/02/21 07:29 37.4 88 18 129/82 (98) 04/01/21 10:20 2 Capillary Refill : Less Than 3 Seconds General Appearance: No Apparent Distress, Chronically ill Respiratory: Lungs Clear, Normal Breath Sounds, No Respiratory Distress Cardiovascular: Regular Rate, Rhythm, No Edema, No Murmur Gastrointestinal: Normal Bowel Sounds, Non Tender, Soft Extremity: No Pedal Edema, Other (left foot bandage in place) Neurologic/Psychiatric: Alert, Disoriented, Motor Weakness Skin: Normal Color, Warm/Dry Results/Procedures Lab Laboratory Tests 04/02/21 08:44 Patient resulted labs reviewed. Imaging: Reviewed Imaging Films, Reviewed Imaging Report Assessment/Plan Assessment and Plan Assess & Plan/Chief Complaint Sepsis Osteomyelitis MSSA bacteremia Wound culture and blood cultures with MSSA Continue Ancef Echo showed no evidence of endocarditis Repeat blood cultures with no growth XR without evidence of osteo ESR and CRP elevated MRI showed osteomyelitis and likely small abscess Surgery following s/p left great toe amputation T2DM with foot ulcer Sliding scale insulin C diff diarrhea Continue oral Vancomycin HTN CAD HLD GERD Dementia Continue home meds DVT prophylaxis: already receiving therapeutic anticoagulation E coli and Proteus UTI, resolved Diagnosis/Problems Diagnosis/Problems (1) Osteomyelitis of great toe of left foot Status: Acute (2) T2DM (type 2 diabetes mellitus) Status: Acute Qualifiers: Diabetes mellitus exterminator helper termite insulin use: with exterminator helper termite use Diabetes mellitus complication status: with skin complications Diabetes mellitus complication detail: with foot ulcer Qualified Codes: E11.621 - Type 2 diabetes mellitus with foot ulcer; L97.509 - Non-pressure chronic ulcer of other part of unspecified foot with unspecified severity; Z79.4 - USP (current) use of insulin (3) MSSA bacteremia Status: Acute (4) C. difficile diarrhea Status: Acute LEONARDA LEWIS MD Apr 02, 2021 13:18
[2021-04-02 15:18] VITALS: BP 150/80
[2021-04-02] MEDS: LACTATED RINGERS 1,000 ML IV SCH ×2 (17:06→22:56)
[2021-04-02] MEDS: ROSUVASTATIN 10 MG (CRESTOR) TABLET PO SCH (20:34)
[2021-04-02] MEDS: GABAPENTIN 100 MG (NEURONTIN) CAP PO SCH (20:34)
[2021-04-02] MEDS: DONEPEZIL 10 MG (ARICEPT) TAB PO SCH (20:35)
[2021-04-02] MEDS: MIRTAZAPINE 15 MG (REMERON) TAB PO SCH (20:35)
[2021-04-02] MEDS: ACETAMINOPHEN 325 MG TABLET PO PRN (20:39)
[2021-04-02] MEDS: oxyCODONE/APAP 5/325MG (PERCOCET 5) TABLET PO PRN (21:56)
[2021-04-03 00:32] VITALS: BP 104/60
[2021-04-03] MEDS: inSUlin ASPART (NovoLOG) 1 UNIT/0.01 ML (CHARGE PER UNIT) SC SCH ×4 (06:48→20:58)
[2021-04-03] MEDS: VANCOMYCIN 125 MG CAPSULE PO SCH ×3 (06:54→17:41)
[2021-04-03] MEDS: ceFAZolin 1,000 MG/SWFI 10 ML IV PUSH IV SCH ×6 (06:54→21:40)
[2021-04-03 07:24] VITALS: BP 100/65
[2021-04-03 07:27] LABS: BASOPHILS # (AUTO) 0.1 10^3/uL (0.0-0.1); BASOPHILS % (AUTO) 1 % (0-10); EOSINOPHILS # (AUTO) 0.4 10^3/uL (0.0-0.3); EOSINOPHILS % (AUTO) 6 % (0-10); HEMATOCRIT 31 % (40-54); HEMOGLOBIN 9.6 g/dL (13.3-17.7); LYMPHOCYTES % (AUTO) 26 % (12-44); MEAN CORPUSCULAR HEMOGLOBIN 30 pg (25-34); MEAN CORPUSCULAR HGB CONC 31 g/dL (32-36); MEAN CORPUSCULAR VOLUME 94 fL (80-99); MEAN PLATELET VOLUME 9.3 fL (9.0-12.2); MONOCYTES # (AUTO) 0.8 10^3/uL (0.0-1.0); MONOCYTES % (AUTO) 11 % (0-12); NEUTROPHILS # (AUTO) 4.3 10^3/uL (1.8-7.8); NEUTROPHILS % (AUTO) 56 % (42-75); PLATELET COUNT 320 10^3/uL (130-400); WHITE BLOOD COUNT 7.6 10^3/uL (4.3-11.0)
[2021-04-03 07:42] LABS: ALBUMIN 2.9 GM/DL (3.2-4.5); POTASSIUM 4.5 MMOL/L (3.6-5.0)
[2021-04-03 07:44] LABS: CALCIUM 9.2 MG/DL (8.5-10.1)
[2021-04-03 07:45] LABS: TOTAL PROTEIN 6.1 GM/DL (6.4-8.2)
[2021-04-03 07:47] LABS: BILIRUBIN,TOTAL 0.3 MG/DL (0.1-1.0)
[2021-04-03 07:48] LABS: CREATININE SERUM 1.03 MG/DL (0.60-1.30)
[2021-04-03] MEDS: POTASSIUM CL 10MEQ/50ML IVPB 50 ML IV SCH (07:48)
[2021-04-03] MEDS: MAGNESIUM 1 GM/100 ML IVPB 100 ML IV SCH (07:49)
[2021-04-03] MEDS: KCL 20 MEQ TAB (K-DUR) PO SCH (07:49)
[2021-04-03] MEDS: PANTOPRAZOLE 40 MG (PROTONIX) TAB PO SCH (08:10)
[2021-04-03] MEDS: LACTATED RINGERS 1,000 ML IV SCH (12:40)
--- NOTE | 2021-04-03 12:59 | Progress Note - Hospitalist ---
Subjective HPI/CC On Admission Date Seen by Provider: Apr 03, 2021 Time Seen by Provider: 10:10 Patient is 76-year-old male with past medical history of Alzheimer's dementia, Parkinson's disease, hypertension, seizure disorder recent UTI who presented to the emergency department due to lethargy. He is unable to tell me much of what happened yesterday that brought him here. He stated "I do not like being told what to do." All history is obtained from records. He was brought in from the long-term due to lethargy that started around 3 PM yesterday. Reviewing his recent history he has had multiple urinary tract infections and has been treated with multiple different antibiotics in August and twice in January of this year. He was found to have a recurrent urinary tract infection and admitted for further care and IV antibiotics. Subjective/Events-last exam He denies any pain. He denies any shortness of breath. He has no complaints or concerns. Objective Exam Vital Signs Vital Signs Date Time Temp Pulse Resp B/P (MAP) Pulse Ox O2 Delivery O2 Flow Rate FiO2 04/03/21 08:00 Room Air 04/03/21 07:24 35.7 67 18 100/65 (77) 94 04/01/21 10:20 2 Capillary Refill : Less Than 3 Seconds General Appearance: No Apparent Distress, Chronically ill Respiratory: Lungs Clear, Normal Breath Sounds, No Respiratory Distress Cardiovascular: Regular Rate, Rhythm, No Murmur Gastrointestinal: Normal Bowel Sounds, Non Tender, Soft Extremity: No Pedal Edema, Other (Left foot with bandage in place, right foot chronic deformity) Neurologic/Psychiatric: Alert, Normal Mood/Affect, Motor Weakness Skin: Normal Color, Warm/Dry Results/Procedures Lab Laboratory Tests 04/03/21 07:20 Patient resulted labs reviewed. Imaging: Reviewed Imaging Report Assessment/Plan Assessment and Plan Assess & Plan/Chief Complaint Osteomyelitis MSSA bacteremia Wound culture and blood cultures with MSSA Continue Ancef Echo showed no evidence of endocarditis Repeat blood cultures with no growth XR without evidence of osteo ESR and CRP elevated MRI showed osteomyelitis and likely small abscess Surgery following s/p left great toe amputation T2DM with foot ulcer Sliding scale insulin C diff diarrhea Continue oral Vancomycin HTN CAD HLD GERD Dementia Continue home meds DVT prophylaxis: already receiving therapeutic anticoagulation E coli and Proteus UTI, resolved Sepsis, resolved Diagnosis/Problems Diagnosis/Problems (1) Osteomyelitis of great toe of left foot Status: Acute (2) T2DM (type 2 diabetes mellitus) Status: Acute Qualifiers: Diabetes mellitus fdc insulin use: with intermodal owner operator truck driver use Diabetes mellitus complication status: with skin complications Diabetes mellitus complication detail: with foot ulcer Qualified Codes: E11.621 - Type 2 diabetes mellitus with foot ulcer; L97.509 - Non-pressure chronic ulcer of other part of unspecified foot with unspecified severity; Z79.4 - exterminator (current) use of insulin (3) MSSA bacteremia Status: Acute (4) C. difficile diarrhea Status: Acute LEONARDA LEWIS MD Apr 03, 2021 12:59
[2021-04-03] MEDS: oxyCODONE/APAP 5/325MG (PERCOCET 5) TABLET PO PRN ×2 (13:11→18:35)
[2021-04-03 15:19] VITALS: BP 137/81
[2021-04-03] MEDS: DONEPEZIL 10 MG (ARICEPT) TAB PO SCH (21:40)
[2021-04-03] MEDS: GABAPENTIN 100 MG (NEURONTIN) CAP PO SCH (21:40)
[2021-04-03] MEDS: MIRTAZAPINE 15 MG (REMERON) TAB PO SCH (21:40)
[2021-04-03] MEDS: ROSUVASTATIN 10 MG (CRESTOR) TABLET PO SCH (21:40)
[2021-04-04 00:18] VITALS: BP 115/74
[2021-04-04] MEDS: VANCOMYCIN 125 MG CAPSULE PO SCH ×4 (00:37→20:41)
[2021-04-04 05:47] LABS: BASOPHILS % (AUTO) 1 % (0-10); EOSINOPHILS # (AUTO) 0.4 10^3/uL (0.0-0.3); EOSINOPHILS % (AUTO) 7 % (0-10); HEMATOCRIT 29 % (40-54); HEMOGLOBIN 9.1 g/dL (13.3-17.7); LYMPHOCYTES # (AUTO) 2.3 10^3/uL (1.0-4.0); LYMPHOCYTES % (AUTO) 39 % (12-44); MEAN CORPUSCULAR HEMOGLOBIN 29 pg (25-34); MEAN CORPUSCULAR HGB CONC 32 g/dL (32-36); MEAN CORPUSCULAR VOLUME 93 fL (80-99); MEAN PLATELET VOLUME 9.5 fL (9.0-12.2); MONOCYTES # (AUTO) 0.7 10^3/uL (0.0-1.0); MONOCYTES % (AUTO) 11 % (0-12); NEUTROPHILS # (AUTO) 2.5 10^3/uL (1.8-7.8); NEUTROPHILS % (AUTO) 42 % (42-75); PLATELET COUNT 336 10^3/uL (130-400)
[2021-04-04 06:00] LABS: POTASSIUM 4.1 MMOL/L (3.6-5.0)
[2021-04-04 06:01] LABS: CALCIUM 9.1 MG/DL (8.5-10.1)
[2021-04-04 06:05] LABS: CREATININE SERUM 0.89 MG/DL (0.60-1.30)
[2021-04-04] MEDS: POTASSIUM CL 10MEQ/50ML IVPB 50 ML IV SCH (06:36)
[2021-04-04] MEDS: MAGNESIUM 1 GM/100 ML IVPB 100 ML IV SCH (06:36)
[2021-04-04] MEDS: KCL 20 MEQ TAB (K-DUR) PO SCH (06:36)
[2021-04-04] MEDS: inSUlin ASPART (NovoLOG) 1 UNIT/0.01 ML (CHARGE PER UNIT) SC SCH ×4 (06:37→20:37)
[2021-04-04] MEDS: ceFAZolin 1,000 MG/SWFI 10 ML IV PUSH IV SCH ×6 (06:52→23:09)
[2021-04-04 07:11] VITALS: BP 125/75
[2021-04-04] MEDS: LACTATED RINGERS 1,000 ML IV SCH ×2 (07:45→14:21)
[2021-04-04] MEDS: oxyCODONE/APAP 5/325MG (PERCOCET 5) TABLET PO PRN ×2 (08:29→14:24)
[2021-04-04] MEDS: PANTOPRAZOLE 40 MG (PROTONIX) TAB PO SCH (08:29)
[2021-04-04 16:00] VITALS: BP 123/83
--- NOTE | 2021-04-04 18:42 | Progress Note - Hospitalist ---
Subjective HPI/CC On Admission Date Seen by Provider: Apr 04, 2021 Time Seen by Provider: 10:55 Patient is 76-year-old male with past medical history of Alzheimer's dementia, Parkinson's disease, hypertension, seizure disorder recent UTI who presented to the emergency department due to lethargy. He is unable to tell me much of what happened yesterday that brought him here. He stated "I do not like being told what to do." All history is obtained from records. He was brought in from the retirement due to lethargy that started around 3 PM yesterday. Reviewing his recent history he has had multiple urinary tract infections and has been treated with multiple different antibiotics in August and twice in January of this year. He was found to have a recurrent urinary tract infection and admitted for further care and IV antibiotics. Subjective/Events-last exam He is lying in bed. He has no complaints. He denies pain. He appears comfortable. Objective Exam Vital Signs Vital Signs Date Time Temp Pulse Resp B/P (MAP) Pulse Ox O2 Delivery O2 Flow Rate FiO2 04/04/21 16:00 36.8 90 20 123/83 (96) 95 Room Air 04/01/21 10:20 2 Capillary Refill : Less Than 3 Seconds General Appearance: No Apparent Distress, WD/WN Respiratory: Lungs Clear, Normal Breath Sounds, No Respiratory Distress Cardiovascular: Regular Rate, Rhythm, No Edema, No Murmur Gastrointestinal: Normal Bowel Sounds, Non Tender, Soft Extremity: Normal Inspection, Non Tender, No Pedal Edema Neurologic/Psychiatric: Alert, Disoriented, Motor Weakness Skin: Other (left foot with bandage in place) Results/Procedures Lab Laboratory Tests 04/04/21 05:23 Patient resulted labs reviewed. Imaging: Reviewed Imaging Report Assessment/Plan Assessment and Plan Assess & Plan/Chief Complaint Osteomyelitis MSSA bacteremia Wound culture and blood cultures with MSSA Continue Ancef x 14 days total antibiotic course Echo showed no evidence of endocarditis Repeat blood cultures with no growth XR without evidence of osteo ESR and CRP elevated MRI showed osteomyelitis and likely small abscess Surgery following s/p left great toe amputation T2DM with foot ulcer Sliding scale insulin C diff diarrhea Continue oral Vancomycin x 10 day course HTN CAD HLD GERD Dementia Continue home meds DVT prophylaxis: already receiving therapeutic anticoagulation E coli and Proteus UTI, resolved Sepsis, resolved Diagnosis/Problems Diagnosis/Problems (1) Osteomyelitis of great toe of left foot Status: Acute (2) T2DM (type 2 diabetes mellitus) Status: Acute Qualifiers: Diabetes mellitus halfway insulin use: with truck terminal manager use Diabetes mellitus complication status: with skin complications Diabetes mellitus complication detail: with foot ulcer Qualified Codes: E11.621 - Type 2 diabetes mellitus with foot ulcer; L97.509 - Non-pressure chronic ulcer of other part of unspecified foot with unspecified severity; Z79.4 - bed bug exterminator (current) use of insulin (3) MSSA bacteremia Status: Acute (4) C. difficile diarrhea Status: Acute LEONARDA LEWIS MD Apr 04, 2021 18:42
[2021-04-04] MEDS: DONEPEZIL 10 MG (ARICEPT) TAB PO SCH (20:41)
[2021-04-04] MEDS: ROSUVASTATIN 10 MG (CRESTOR) TABLET PO SCH (20:42)
[2021-04-04] MEDS: MIRTAZAPINE 15 MG (REMERON) TAB PO SCH (20:42)
[2021-04-04] MEDS: APIXABAN 5 MG (ELIQUIS) TABLET PO SCH (20:42)
[2021-04-04] MEDS: GABAPENTIN 100 MG (NEURONTIN) CAP PO SCH (20:42)
[2021-04-04 23:25] VITALS: BP 113/71
[2021-04-05] MEDS: VANCOMYCIN 125 MG CAPSULE PO SCH ×4 (01:56→17:15)
[2021-04-05] MEDS: LACTATED RINGERS 1,000 ML IV SCH ×2 (03:41→17:25)
[2021-04-05] MEDS: inSUlin ASPART (NovoLOG) 1 UNIT/0.01 ML (CHARGE PER UNIT) SC SCH ×4 (05:33→20:50)
[2021-04-05] MEDS: ceFAZolin 1,000 MG/SWFI 10 ML IV PUSH IV SCH ×6 (06:23→22:57)
[2021-04-05 06:34] LABS: POTASSIUM 4.5 MMOL/L (3.6-5.0)
[2021-04-05 06:35] LABS: CALCIUM 9.2 MG/DL (8.5-10.1)
[2021-04-05] MEDS: POTASSIUM CL 10MEQ/50ML IVPB 50 ML IV SCH (06:36)
[2021-04-05] MEDS: KCL 20 MEQ TAB (K-DUR) PO SCH (06:36)
[2021-04-05 06:40] LABS: CREATININE SERUM 0.89 MG/DL (0.60-1.30)
[2021-04-05] MEDS: MAGNESIUM 1 GM/100 ML IVPB 100 ML IV SCH (06:45)
[2021-04-05 08:06] VITALS: BP 135/81
[2021-04-05] MEDS: PANTOPRAZOLE 40 MG (PROTONIX) TAB PO SCH (10:07)
[2021-04-05] MEDS: APIXABAN 5 MG (ELIQUIS) TABLET PO SCH ×2 (10:08→20:57)
--- NOTE | 2021-04-05 11:08 | Progress Note - Hospitalist ---
Subjective HPI/CC On Admission Date Seen by Provider: Apr 05, 2021 Time Seen by Provider: 11:05 Patient is 76-year-old male with past medical history of Alzheimer's dementia, Parkinson's disease, hypertension, seizure disorder recent UTI who presented to the emergency department due to lethargy. He is unable to tell me much of what happened yesterday that brought him here. He stated "I do not like being told what to do." All history is obtained from records. He was brought in from the retirement due to lethargy that started around 3 PM yesterday. Reviewing his recent history he has had multiple urinary tract infections and has been treated with multiple different antibiotics in August and twice in January of this year. He was found to have a recurrent urinary tract infection and admitted for further care and IV antibiotics. Subjective/Events-last exam Patient reports doing well. Requests a new phone. Otherwise has no medical needs. Objective Exam Vital Signs Vital Signs Date Time Temp Pulse Resp B/P (MAP) Pulse Ox O2 Delivery O2 Flow Rate FiO2 04/05/21 08:06 36.2 87 16 135/81 (99) 99 Room Air 04/01/21 10:20 2 Capillary Refill : Less Than 3 Seconds General Appearance: No Apparent Distress, Chronically ill Respiratory: Lungs Clear, No Respiratory Distress Cardiovascular: Regular Rate, Rhythm Extremity: Other (s/p amputation of left great toe- surgical wound dressed) Results/Procedures Lab Laboratory Tests 04/05/21 06:15 Patient resulted labs reviewed. Imaging: Reviewed Imaging Report Assessment/Plan Assessment and Plan Assess & Plan/Chief Complaint Osteomyelitis MSSA bacteremia Wound culture and blood cultures with MSSA Continue Ancef x 14 days total antibiotic course- should need one more week at [facility] as it started on 04/01 Echo showed no evidence of endocarditis Repeat blood cultures with no growth XR without evidence of osteo ESR and CRP elevated MRI showed osteomyelitis and likely small abscess Surgery following s/p left great toe amputation T2DM with foot ulcer Sliding scale insulin C diff diarrhea Continue oral Vancomycin x 10 day course- should complete tomorrow HTN CAD HLD GERD Dementia Continue home meds DVT prophylaxis: already receiving therapeutic anticoagulation E coli and Proteus UTI, resolved Sepsis, resolved Diagnosis/Problems Diagnosis/Problems (1) Sepsis Status: Acute Qualifiers: Sepsis type: sepsis due to unspecified organism Sepsis acute organ dysfu nction status: without acute organ dysfunction Qualified Codes: A41.9 - Sepsis, unspecified organism (2) Dementia Status: Chronic Qualifiers: Dementia type: Alzheimer's Alzheimer's disease onset: unspecified onset Dementia behavioral disturbance: without behavioral disturbance Qualified Codes: G30.9 - Alzheimer's disease, unspecified; F02.80 - Dementia in other diseases classified elsewhere without behavioral disturbance (3) Fecal impaction Status: Acute (4) Seizure disorder Status: Chronic (5) AMS (altered mental status) Status: Acute Qualifiers: Altered mental status type: disorientation Qualified Codes: R41.0 - Disorientation, unspecified (6) Urinary tract infection Status: Acute Qualifiers: Urinary tract infection type: catheter-associated UTI Indwelling urinary catheter type: indwelling urethral catheter Encounter type: initial encounter Qualified Codes: T83.511A - Infection and inflammatory reaction due to indwelling urethral catheter, initial encounter; N39.0 - Urinary tract infection, site not specified (7) Cellulitis Qualifiers: Site of cellulitis: extremity Site of cellulitis of extremity: toe Laterality: left Qualified Codes: L03.032 - Cellulitis of left toe ROBB DIOR MD Apr 05, 2021 11:07
[2021-04-05] MEDS: oxyCODONE/APAP 5/325MG (PERCOCET 5) TABLET PO PRN ×2 (12:11→17:15)
[2021-04-05 15:15] VITALS: BP 126/78
[2021-04-05] MEDS: ROSUVASTATIN 10 MG (CRESTOR) TABLET PO SCH (20:57)
[2021-04-05] MEDS: GABAPENTIN 100 MG (NEURONTIN) CAP PO SCH (20:57)
[2021-04-05] MEDS: MIRTAZAPINE 15 MG (REMERON) TAB PO SCH (20:57)
[2021-04-05] MEDS: DONEPEZIL 10 MG (ARICEPT) TAB PO SCH (20:57)
[2021-04-06] MEDS: VANCOMYCIN 125 MG CAPSULE PO SCH ×3 (00:04→12:22)
[2021-04-06 00:05] VITALS: BP 123/78
[2021-04-06] MEDS: inSUlin ASPART (NovoLOG) 1 UNIT/0.01 ML (CHARGE PER UNIT) SC SCH ×2 (05:45→12:30)
[2021-04-06] MEDS: LACTATED RINGERS 1,000 ML IV SCH (06:09)
[2021-04-06] MEDS: ceFAZolin 1,000 MG/SWFI 10 ML IV PUSH IV SCH ×4 (06:09→14:22)
[2021-04-06 06:11] LABS: POTASSIUM 4.4 MMOL/L (3.6-5.0)
[2021-04-06] MEDS: KCL 20 MEQ TAB (K-DUR) PO SCH (06:18)
[2021-04-06] MEDS: POTASSIUM CL 10MEQ/50ML IVPB 50 ML IV SCH (06:18)
[2021-04-06] MEDS: MAGNESIUM 1 GM/100 ML IVPB 100 ML IV SCH (06:33)
[2021-04-06 08:00] VITALS: BP 117/79
[2021-04-06] MEDS: APIXABAN 5 MG (ELIQUIS) TABLET PO SCH (08:43)
[2021-04-06] MEDS: PANTOPRAZOLE 40 MG (PROTONIX) TAB PO SCH (08:44)
[2021-04-06] MEDS ORDERED: CEPH500T PO (08:53)
--- NOTE | 2021-04-06 09:22 | Discharge Inst-Skilled Nursing ---
Discharge Inst-Skilled NF Chief Complaint Patient is 76-year-old male with past medical history of Alzheimer's dementia, Parkinson's disease, hypertension, seizure disorder recent UTI who presented to the emergency department due to lethargy. He is unable to tell me much of what happened yesterday that brought him here. He stated "I do not like being told what to do." All history is obtained from records. He was brought in from the custodial due to lethargy that started around 3 PM yesterday. Reviewing his recent history he has had multiple urinary tract infections and has been treated with multiple different antibiotics in August and twice in January of this year. He was found to have a recurrent urinary tract infection and admitted for further care and IV antibiotics. Consult/Follow Up/Orders Follow Up Appt.: With Dr Potts in a week and Dr Mireles in a week. Skilled NF Admit to: [facility] Certification ([facility]) I certify that SNF services are required to be given on an inpatient basis because of the above named patient's need for correction care on a continuing basis for the conditions(s) for which he/she was receiving inpatient hospital services prior to his/her transfer to the SNF. Half-Way Facility Order: Nursing Services, Cot Assembler-Evaluate & Treat, Physical Therapy-Evaluate & Treat Oxygen Delivery Method: Room Air Discharge Diet: No Restrictions Daily Activity as Tolerated: Yes New & Resume Previous Orders Robb Patel Apr 06, 2021 09:21 ROBB PATEL MD Apr 06, 2021 09:22
--- NOTE | 2021-04-06 09:23 | Discharge Summary ---
Diagnosis/Chief Complaint Date of Admission Mar 26, 2021 at 21:40 Date of Discharge Discharge Date: Apr 06, 2021 Admission Diagnosis SEpsis Primary Care DakotagabrielDesmond Ninfa DO Discharge Diagnosis (1) Osteomyelitis of great toe of left foot Status: Acute (2) T2DM (type 2 diabetes mellitus) Status: Acute (3) MSSA bacteremia Status: Acute (4) C. difficile diarrhea Status: Acute Discharge Summary Discharge Physical Exam Allergies: Coded Allergies: Iodine and Iodide Containing Produc (Verified Allergy, Unknown, 09/06/20) Vitals & I&Os Vital Signs Date Time Temp Pulse Resp B/P (MAP) Pulse Ox O2 Delivery O2 Flow Rate FiO2 04/06/21 08:00 Room Air 04/06/21 08:00 35.5 81 18 117/79 (92) 100 04/01/21 10:20 2 General Appearance: No Apparent Distress, WD/WN Respiratory: Lungs Clear, No Respiratory Distress Cardiovascular: Regular Rate, Rhythm, No Murmur Neurologic/Psychiatric: Alert, Disoriented Hospital Course Labs (last 24 hrs) Laboratory Tests 04/05/21 15:37: Glucometer 121H 04/05/21 20:42: Glucometer 103 04/06/21 05:44: Glucometer 92 04/06/21 05:57: Potassium Level 4.4, Magnesium Level 2.0 04/06/21 12:25: Glucometer 156H Microbiology 03/31/21 MRSA Screen - Final, Complete MRSA not isolated 03/29/21 Blood Culture - Final, Complete No growth 03/27/21 Gram Stain - Final, Complete 03/27/21 Wound Culture - Final, Complete Mixed Bacterial Carmen Staphylococcus aureus 03/27/21 C. difficile DNA Amplification - Final, Complete 03/27/21 C. difficile GDH Antigen & Toxins - Final, Complete 03/26/21 Urine Culture - Final, Complete Escherichia coli Proteus mirabilis Patient resulted labs reviewed. Pending Labs Laboratory Tests 04/06/21 12:25: Glucometer 156 Imaging: Reviewed Imaging Report Discussion & Recommendations Discharge Planning: >30 minutes discharge planning Discharge Home Medications: Active Scripts Active Cephalexin 500 Mg Tablet 500 Mg PO BID Reported Mylanta Suspension (Al Hydrox/Mg Hydrox/Simethicone) 30 Ml Oral.susp 30 Ml PO Q4H PRN Milk of Magnesia (Magnesium Hydroxide) 2,400 Mg/10 Ml Oral.susp 30 Ml PO DAILY PRN Bisacodyl 10 Mg Supp.rect 10 Mg RC DAILY PRN Refresh Tears (Carboxymethylcellulose Sodium) 15 Ml Drops 2 Drops OU Q6H PRN Afrin (Oxymetazoline HCl) 15 Ml Mist 2 Sprays NSEACH Q12H PRN MAY SOAK COTTON BALL AND PACK Tylenol Arthritis (Acetaminophen) 650 Mg Tablet.er 650 Mg PO Q8H PRN Tylenol 8 Hour (Acetaminophen) 650 Mg Tablet.er 1,300 Mg PO Q4H PRN Tylenol Extra Strength (Acetaminophen) 500 Mg Tablet 500 Mg PO TID Refresh Tears (Carboxymethylcellulose Sodium) 15 Ml Drops 2 Drops OD BID Calcium 600 + Vit D 400 Tablet (Calcium Carbonate/Vitamin D3) 1 Each Tablet 1 Each PO BID Saline Nasal Gel (Sodium Chloride/Aloe Vera) 14.1 Gm Gel..gram. 1 [place] NSEACH BID Senna (Sennosides) 8.6 Mg Tablet 8.6 Mg PO HS Mirtazapine 30 Mg Tablet 30 Mg PO HS Multivitamin 1 Each Tablet 1 Each PO DAILY Miralax (Polyethylene Glycol 3350) 17 Gm Powd.pack 17 Gm PO DAILY Melatonin 3 Mg Capsule 6 Mg PO HS TAKES 2 (3MG) CAPS Colace (Docusate Sodium) 100 Mg Capsule 100 Mg PO BID Aspirin EC (Aspirin) 81 Mg Tablet. 81 Mg PO DAILY Asenapine Maleate 5 Mg Tab.subl 5 Mg SL DAILY Asenapine Maleate 10 Mg Tab.subl 10 Mg SL HS Levetiracetam 750 Mg Tablet 750 Mg PO BID Gabapentin 100 Mg Capsule 100 Mg PO 1900 Rosuvastatin Calcium 10 Mg Tablet 10 Mg PO HS Donepezil HCl 10 Mg Tablet 10 Mg PO HS Eliquis (Apixaban) 5 Mg Tablet 5 Mg PO BID Pantoprazole Sodium 40 Mg Tablet. 40 Mg PO DAILY Instructions to patient/family Please see electronic discharge instructions given to patient. 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
[2021-04-06] MEDS: ACETAMINOPHEN 325 MG TABLET PO PRN (14:22)
[2021-04-06 14:25] VITALS: BP 117/79
--- NOTE | 2021-04-09 11:10 | Physician Query Clarification ---
PQ-Further Specificity Admission/Discharge Admission Date: Mar 26, 2021 at 21:40 Discharge Date: Apr 06, 2021 at 16:25 Dr. Patel, The medical record reflects the following clinical scenario: History/Risk Factors: Sepsis, UTI w/suprapubic cath, hx lt first toe distal phalanx amp, osteomyelitis lt first toe, DM, cellulitis of lt foot/toes, DM ulcer dorsum of lt first toe. Clinical Findings: Sepsis from cellulitis POA, The patient is a 76-year-old male who had an abscess drainage, erythema, swelling of the left first toe. It already had a previous partial resection of the toe. 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 Question: Can you further specify if the cellulitis/osteomyelitis is a complication of the previous amputation per the clinical indicators above? Please document a response in the Progress Notes or Discharge Summary. 1. Yes, the cellulitis/osteomyelitis is a complication of the previous amputation 2. No, the cellulitis/osteomyelitis is not a complication of the previous amputation. Sepsis is d/t cellulitis/osteomyelitis 3. Other, with explanation of the clinical findings. 4. Clinically undetermined, no explanation for the clinical findings. PHYSICIAN RESPONSE Can you specify per above: Clinically undetermined Please remember a lack of response to the above will prompt a phone page by CDI/Coding staff. In responding to this query, please exercise your independent professional judgment. The purpose of this communication is to more accurately reflect the complexity of your patients condition. The fact that a question is asked does not imply that any particular answer is desired or expected. Thank you for your timely response to this clarification. Requestors name: Rodney THIS PHYSICIAN QUERY FORM IS A PERMANENT PART OF THE MEDICAL RECORD RODNEY TOLBERT Apr 09, 2021 11:10 ROBB PATEL MD Apr 09, 2021 18:58
== END 2021-04-06 16:25 | DRG 503 ==
LOC: EDUNIT# 18:40 → ER 18:42 → 4TH 21:40
PROVIDERS: ADMIT Family Medicine; ATTEND Family Medicine
PROC: 0Y6Q0Z0 Detachment at Left 1st Toe, Complete, Open Approach (ICD-10-PCS; principal; 2021-04-01 09:28)
DX: T87.44 Infection of amputation stump, left lower extremity (principal); A41.51 Sepsis due to Escherichia coli [E. coli]; G93.41 Metabolic encephalopathy; T83.511A Infection and inflammatory reaction due to indwelling urethral catheter, initial encounter; N39.0 Urinary tract infection, site not specified; M86.9 Osteomyelitis, unspecified; F02.81 Dementia in other diseases classified elsewhere, unspecified severity, with behavioral disturbance; A04.72 Enterocolitis due to Clostridium difficile, not specified as recurrent; E11.69 Type 2 diabetes mellitus with other specified complication; Z20.822 Contact with and (suspected) exposure to COVID-19; E11.621 Type 2 diabetes mellitus with foot ulcer; E11.40 Type 2 diabetes mellitus with diabetic neuropathy, unspecified; L97.529 Non-pressure chronic ulcer of other part of left foot with unspecified severity; B96.4 Proteus (mirabilis) (morganii) as the cause of diseases classified elsewhere; B96.20 Unspecified Escherichia coli [E. coli] as the cause of diseases classified elsewhere; G30.9 Alzheimer's disease, unspecified; G20 Parkinson's disease; J44.9 Chronic obstructive pulmonary disease, unspecified; R29.810 Facial weakness; K56.41 Fecal impaction; L03.032 Cellulitis of left toe; E78.00 Pure hypercholesterolemia, unspecified; E78.5 Hyperlipidemia, unspecified; I10 Essential (primary) hypertension; I25.10 Atherosclerotic heart disease of native coronary artery without angina pectoris; G40.909 Epilepsy, unspecified, not intractable, without status epilepticus; K21.9 Gastro-esophageal reflux disease without esophagitis; M19.91 Primary osteoarthritis, unspecified site; M79.7 Fibromyalgia; F32.9 Major depressive disorder, single episode, unspecified; L89.151 Pressure ulcer of sacral region, stage 1; H91.90 Unspecified hearing loss, unspecified ear; Z89.421 Acquired absence of other right toe(s); Z88.8 Allergy status to other drugs, medicaments and biological substances
CPT/HCPCS: 36415; 70450; 71045; 73620; 74176; 80048; 80053; 80202; 81000; 82947; 83605; 83735; 84132; 85007; 85025; 85027; 85610; 85652; 85730; 86141; 87040; 87070; 87075; 87077; 87081; 87088; 87186; 87205; 87324; 87449; 87493; 87636; 88305; 88311; 93306; 94760; 96361; 96374

== ENCOUNTER 2021-04-10 14:43 | Emergency (ER) | payer MEDICARE, MEDICAID ==
[~2021-04-10] VITALS: Ht 182 cm; Wt 77.0 kg
[~2021-04-10 14:43] MED LIST changes: +ACET-2267 PO; +ACET-2650 PO; +ACET-2840 PO; +APIX5TAB PO; +ASEN10TA11 SL; +ASEN5TAB SL; +ASPI-1238 PO; +BISA10SU8 RC; +CALC-1026 PO; +CARB15DR OD; +CARB15DR OU; +CEPH500T PO; +DOCU-143 PO; +DONE10TA41 PO; +GABA-486 PO; +LEVE750T5 PO; +MAG30ORA2 PO; +MELA3CAP2 PO; +MIRT-68 PO; +MIRT-69 PO; +MOM10U PO; +MULT-1136 PO; +NPH,100I5 SQ; +OXYM15MI4 NSEACH; +PANT40TA52 PO; +POLY17PO6 PO; +ROSU10TA28 PO; +SENN-234 PO; +SODI14.13 NSEACH
--- NOTE | 2021-04-10 15:36 | Diagnostic Imaging Report ---
PROCEDURE: CT head and CT cervical spine without contrast. TECHNIQUE: Multiple contiguous axial images were obtained through the brain and cervical spine without the use of intravenous contrast. Sagittal and coronal reformations through the cervical spine were then performed. Auto Exposure Controls were utilized during the CT exam to meet ALARA standards for radiation dose reduction. INDICATION: Head and neck pain after trauma. COMPARISON: Prior examination from 03/26/2021. FINDINGS: There is prominence of the ventricles and sulci. There is mild chronic microvascular ischemic disease. There are some benign appearing calcifications in the insular cortex on the right. There is no hydrocephalus. There is no midline shift. There is no mass, hemorrhage or extra-axial fluid collection. Calvarium is intact. Sinuses and mastoid air cells are clear. There is straightening of the normal cervical lordosis. The vertebral body heights are well maintained. There is no acute fracture or traumatic subluxation. Odontoids intact. Lateral masses are well aligned. The prevertebral soft tissues are within normal limits. There is some posterior facet arthropathy. The lung apices are clear. IMPRESSION: 1. Atrophy and some chronic microvascular ischemic disease; however, no acute intracranial abnormality. 2. Cervical spondylosis and degenerative disc disease without acute fracture or malalignment. Dictated by: Dictated on workstation # [id number]
--- NOTE | 2021-04-10 15:39 | ED Fall/Injury ---
General Chief Complaint: Trauma-Non Activation Stated Complaint: FELL HIT HEAD Nursing Triage Note: SEE TRIAGE Source: senior living records (ALL PMH [facility] FROM [facility] Exam Limitations: other (PT WITH SEVERE DEMENTIA AND IS UNABLE TO GIVE ANY INFORMATION, NO REPORT FROM [facility], AND STAFF MEMBER THAT HAS BROUGHT PT TO ER KNOWS NOTHING ABOUT THE EVENT AND WAS NOT EVEN AT WORK AT THE TIME OF THE EVENT, AND DOES NOT KNOW ANYTHING ABOUT THE PATIENT. ) History of Present Illness Date Seen by Provider: Apr 10, 2021 Time Seen by Provider: 14:56 Initial Comments PT ARRIVES VIA POV IN WHEELCHAIR FROM [facility] PT ALLEGEDLY HAD AN UNWITNESSED FALL AT UNKNOWN TIME TODAY AT [facility] NO CHANGE IN PT'S MENTATION PT NOTED TO HAVE A VERY SLIGHT ABRASION TO LEFT CHEEK STAFF CONCERNED THAT PT HAD AN INDENTED AREA ON POSTERIOR ASPECT OF HEAD PT IS ON ELIQUIS AND ASPIRIN. STAFF MEMBER DOES STATE THAT PT RECENTLY HAD SURGERY ON ONE OF HIS FEET AND IS NOT SUPPOSED TO BE WALKING, BUT WILL NEVER STAY IN CHAIR OR BED DUE TO DEMENTIA Location Injury Occurred: NM PCP: DR. JORDAN Allergies and Home Medications Allergies Coded Allergies: Iodine and Iodide Containing Produc (Verified Allergy, Unknown, 09/06/20) Patient Home Medication List Home Medication List Reviewed: Yes Acetaminophen (Tylenol Extra Strength) 500 Mg Tablet, 500 MG PO TID, (Reported) Entered as Reported by: NEREYDA DIXON on 03/29/21 1018 Acetaminophen (Tylenol 8 Hour) 650 Mg Tablet.er, 1,300 MG PO Q4H PRN for PAIN- MILD (1-4), (Reported) Entered as Reported by: NEREYDA DIXON on 03/29/21 1018 Acetaminophen (Tylenol Arthritis) 650 Mg Tablet.er, 650 MG PO Q8H PRN for PAIN- MILD (1-4), (Reported) Entered as Reported by: NEREYDA DIXON on 03/29/21 1018 Apixaban (Eliquis) 5 Mg Tablet, 5 MG PO BID, (Reported) Entered as Reported by: CHAS CARBAJAL on 03/27/21 1547 Asenapine Maleate (Asenapine Maleate) 10 Mg Tab.subl, 10 MG SL HS, (Reported) Entered as Reported by: CHAS CARBAJAL on 03/27/21 1547 Asenapine Maleate (Asenapine Maleate) 5 Mg Tab.subl, 5 MG SL DAILY, (Reported) Entered as Reported by: CHAS CARBAJAL on 03/27/21 154 Aspirin (Aspirin EC) 81 Mg Tablet.dr, 81 MG PO DAILY, (Reported) Entered as Reported by: CHAS CARBAJAL on 03/27/211546 Bisacodyl (Bisacodyl) 10 Mg Supp.rect, 10 MG RC DAILY PRN for CONSTIPATION-4TH LINE, (Reported) Entered as Reported by: NEREYDA DIXON on 03/29/21 1018 Calcium Carbonate/Vitamin D3 (Calcium 600 + Vit D 400 Tablet) 1 Each Tablet, 1 EACH PO BID, (Reported) Entered as Reported by: NEREYDA DIXON on 03/29/21 1018 Carboxymethylcellulose Sodium (Refresh Tears) 15 Ml Drops, 2 DROPS OD BID, (Reported) Entered as Reported by: NEREYDA DIXON on 03/29/21 1018 Carboxymethylcellulose Sodium (Refresh Tears) 15 Ml Drops, 2 DROPS OU Q6H PRN for DRY EYES, (Reported) Entered as Reported by: NEREYDA DIXON on 03/29/21 1018 Cephalexin (Cephalexin) 500 Mg Tablet, 500 MG PO BID Prescribed by: ROBB DIOR on 04/06/21 0853 Docusate Sodium (Colace) 100 Mg Capsule, 100 MG PO BID, (Reported) Entered as Reported by: CHAS CARBAJAL on 03/27/211546 Donepezil HCl (Donepezil HCl) 10 Mg Tablet, 10 MG PO HS, (Reported) Entered as Reported by: CHAS CARBAJAL on 03/27/211546 Gabapentin (Gabapentin) 100 Mg Capsule, 100 MG PO 1900, (Reported) Entered as Reported by: CHAS CARBAJAL on 03/27/21 154 Levetiracetam (Levetiracetam) 750 Mg Tablet, 750 MG PO BID, (Reported) Entered as Reported by: CHAS CARBAJAL on 03/27/21 154 Mag Hydrox/Al Hydrox/Simeth (Mylanta Suspension) 30 Ml Oral.susp, 30 ML PO Q4H PRN for INDIGESTION, (Reported) Entered as Reported by: NEREYDA DIXON on 03/29/21 1018 Magnesium Hydroxide (Milk of Magnesia) 2,400 Mg/10 Ml Oral.susp, 30 ML PO DAILY PRN for CONSTIPATION-7TH LINE, (Reported) Entered as Reported by: NEREYDA DIXON on 03/29/21 1018 Melatonin (Melatonin) 3 Mg Capsule, 6 MG PO HS, (Reported) Entered as Reported by: CHAS CARBAJAL on 03/27/211546 Mirtazapine (Mirtazapine) 30 Mg Tablet, 30 MG PO HS, (Reported) Entered as Reported by: NEREYDA DIXON on 03/29/21 101 Multivitamin (Multivitamin) 1 Each Tablet, 1 EACH PO DAILY, (Reported) Entered as Reported by: NEREYDA DIXON on 03/29/21 101 Oxymetazoline HCl (Afrin) 15 Ml Mist, 2 SPRAYS NSEACH Q12H PRN for NOSEBLEEDS, (Reported) Entered as Reported by: NEREYDA DIXON on 03/29/21 101 Pantoprazole Sodium (Pantoprazole Sodium) 40 Mg Tablet.dr, 40 MG PO DAILY, (Reported) Entered as Reported by: CHAS CARBAJAL on 03/27/211546 Polyethylene Glycol 3350 (Miralax) 17 Gm Powd.pack, 17 GM PO DAILY, (Reported) Entered as Reported by: NEREYDA DIXON on 03/29/21 101 Rosuvastatin Calcium (Rosuvastatin Calcium) 10 Mg Tablet, 10 MG PO HS, (Reported) Entered as Reported by: CHAS CARBAJAL on 03/27/211546 Sennosides (Senna) 8.6 Mg Tablet, 8.6 MG PO HS, (Reported) Entered as Reported by: NEREYDA DIXON on 03/29/21 101 Sodium Chloride/Aloe Vera (Saline Nasal Gel) 14.1 Gm Gel..gram., 1 SPRAY NSEACH BID, (Reported) Entered as Reported by: NEREYDA DIXON on 03/29/21 101 Discontinued Medications Insulin NPH Human Isophane (Humulin N Kwikpen) 100 Unit/1 Ml Insuln.pen, 10 UNITS SQ HS, (Reported) Entered as Reported by: CHAS CARBAJAL on 03/27/211546 Insulin NPH Human Isophane (Humulin N Kwikpen) 100 Unit/1 Ml Insuln.pen, 5 UNIT SQ DAILY, (Reported) Entered as Reported by: CHAS CARBAJAL on 03/27/211546 Review of Systems Review of Systems Constitutional: other (UNABLE TO OBTAIN) Past Xfnjinh-[id number]-[id number] Hx Patient Social History Smoking Status: Unknown if Ever Smoked Immunizations Up To Date Tetanus Booster (TDap): Unknown First/Initial COVID19 Vaccinat: 09/03/20 Second COVID19 Vaccination Ricardo: 09/24/20 Seasonal Allergies Seasonal Allergies: No Past Medical History Surgery/Hospitalization HX: LEFT GREAT TOE AMPUTATION Surgeries: Yes Amputation, Orthopedic Respiratory: Yes (COVID-19 INFECTION) Pneumonia, COPD Currently Using CPAP: No Currently Using BIPAP: No Cardiac: Yes High Cholesterol, Hypertension Neurological: Yes (DEMENTIA WITH BEHAVIOR DISTURBANCE) Dementia, Neuropathy, Parkinson's Disease, Seizure Disorder Genitourinary: Yes Prostate Problems, Bladder Infection, Kidney Stones Gastrointestinal: Yes Gastroesophageal Reflux, Chronic Constipation, C-Diff Musculoskeletal: Yes (LEFT GREAT TOE AMPUTATION) Amputee, Arthritis, Fibromyalgia Endocrine: Yes Diabetes, Insulin dep HEENT: Yes (NOSEBLEEDS) Hearing Impairment: Hard of Hearing Cancer: No Psychosocial: Yes (DEMENTIA WITH BEHAVIOR DISTURBANCE) Sleep Difficulties, Depression Integumentary: No Blood Disorders: No Family Medical History Other Conditions/Hx Parents Physical Exam Vital Signs Vital Signs - First Documented 04/10/21 14:50 Temp 36.9 Pulse 56 Resp 20 B/P (MAP) 147/74 (98) Capillary Refill : Less Than 3 Seconds Height, Weight, BMI Height: '" Weight: lbs. oz. kg; 23.00 BMI Method: General Appearance: WD/WN, no apparent distress, other (DROWSY, BUT OPENS EYES TO VOICE. PT DOES NOT TALK OR ANSWER ANY QUESTIONS OR FOLLOW ANY COMMANDS--THIS IS REPORTEDLY PT'S NORMAL BASELINE) HEENT: PERRL/EOMI, TMs normal, pharynx normal, other (VERY MINOR ABRASION TO LEFT MANDIBLE AREA, OTHERWISE NO EVIDENCE OF TRAUMA TO HEAD OR FACE--NORMAL BONY PROMINENCES AND SUTURE LINES TO SKULL. NO SKULL DEFORMITY) Neck: non-tender, full range of motion Cardiovascular: regular rate, rhythm Respiratory: chest non-tender, normal breath sounds Gastrointestinal: non tender, soft Back: no vertebral tenderness Extremities: non-tender Neurologic/Psychiatric: no motor/sensory deficits (MOVES ALL EXTREMITIES), other (MENTATION ABOVE) Skin: normal color, warm/dry Procedures/Interventions Suture Size: 4-0 Progress/Results/Core Measures Results/Orders My Orders Orders - NIKKI RAINEY DO Ct Head/Cervical Spine Wo (04/10/21 14:56) Vital Signs/I&O 04/10/21 04/10/21 14:50 15:46 Temp 36.9 36.9 Pulse 56 56 Resp 20 20 B/P (MAP) 147/74 (98) 147/74 Blood Pressure Mean: 98 Progress Progress Note : Progress Note NO DETERIORATION IN PT'S CONDITION DURING ER STAY Diagnostic Imaging Comments CT HEAD/CERVICAL SPINE--PER RADIOLOGIST REPORT AT 1538 FINDINGS: There is prominence of the ventricles and sulci. There is mild chronic microvascular ischemic disease. There are some benign appearing calcifications in the insular cortex on the right. There is no hydrocephalus. There is no midline shift. There is no mass, hemorrhage or extra-axial fluid collection. Calvarium is intact. Sinuses and mastoid air cells are clear. There is straightening of the normal cervical lordosis. The vertebral body heights are well maintained. There is no acute fracture or traumatic subluxation. Odontoids intact. Lateral masses are well aligned. The prevertebral soft tissues are within normal limits. There is some posterior facet arthropathy. The lung apices are clear. IMPRESSION: 1. Atrophy and some chronic microvascular ischemic disease; however, no acute intracranial abnormality. 2. Cervical spondylosis and degenerative disc disease without acute fracture or malalignment. Reviewed: Reviewed by Me Departure Impression Primary Impression: Unwitnessed fall Additional Impressions: Minor head injury Dementia Disposition: 03 XFER SNF Condition: Stable Departure-Patient Inst. Decision time for Depature: 15:39 Referrals: LEANDRA JORDAN DO (PCP/Family) Primary Care Physician Patient Instructions: Tips for Caregivers of People With Alzheimer Disease, Preventing Falls, Minor Head Injury Add. Discharge Instructions: CONTINUE REGULAR MEDICATIONS PRESCRIBED FOLLOW UP WITH YOUR DR NEEDED RETURN TO ER IF PROBLEMS All discharge instructions reviewed with patient and/or family. Voiced understanding. NIKKI RAINEY DO Apr 10, 2021 15:39
[2021-04-10 15:46] VITALS: BP 147/74
== END 2021-04-10 15:46 ==
LOC: EDUNIT# 14:43 → ER 14:44
DX: S09.90XA Unspecified injury of head, initial encounter (principal); S00.81XA Abrasion of other part of head, initial encounter; F03.90 Unspecified dementia, unspecified severity, without behavioral disturbance, psychotic disturbance, mood disturbance, and anxiety; J44.9 Chronic obstructive pulmonary disease, unspecified; I10 Essential (primary) hypertension; G20 Parkinson's disease; E11.9 Type 2 diabetes mellitus without complications; K21.9 Gastro-esophageal reflux disease without esophagitis; G40.909 Epilepsy, unspecified, not intractable, without status epilepticus; F32.9 Major depressive disorder, single episode, unspecified; E78.00 Pure hypercholesterolemia, unspecified; Z79.01 Long term (current) use of anticoagulants; Z79.82 Long term (current) use of aspirin; Z79.899 Other long term (current) drug therapy; W19.XXXA Unspecified fall, initial encounter
CPT/HCPCS: 70450; 72125

== ENCOUNTER 2021-04-19 14:31 | Emergency (ER) | payer BC, MEDICAID ==
[~2021-04-19] VITALS: Ht 187 cm; Wt 90.0 kg
[2021-04-19] MEDS ORDERED: PANTOPRAZOLE INJECTION 200 MG in NS (IVPB) 100 ML IV SCH (15:00)
[2021-04-19] MEDS ORDERED: PANTOPRAZOLE 40 MG (PROTONIX) VIAL IV ONE (15:00)
[2021-04-19] MEDS ORDERED: NS IV 500 ML 500 ML IV ONE (15:00)
--- NOTE | 2021-04-19 15:04 | ED GI ---
General Chief Complaint: Rect Problems Stated Complaint: BLACK STOOLS, Nursing Triage Note: Pt brought by [facility] staff for rectal bleeding and concerns with rectum. "It looks like it is sucked in" reports the aid present in room with patient. A dark runny stool was noticed last night, while cleaning rectum concerns identified. Pt brought to room via WC. Source of Information: Patient Exam Limitations: No Limitations History of Present Illness Date Seen by Provider: Apr 19, 2021 Time Seen by Provider: 14:30 Initial Comments Patient presents ER by private conveyance chief complaint of 1 day of black tarry stools and some bright red blood per rectum. He is not had any syncope. He has dementia does not answer for himself. [facility] He is on Eliquis. He is on aspirin and pantoprazole 40 mg daily. He has received MiraLAX and docusate for constipation. Dr. 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 No mention of endoscopy Allergies and Home Medications Allergies Coded Allergies: Iodine and Iodide Containing Produc (Verified Allergy, Unknown, 09/06/20) Patient Home Medication List Home Medication List Reviewed: Yes Acetaminophen (Tylenol Extra Strength) 500 Mg Tablet, 500 MG PO TID, (Reported) Entered as Reported by: NEREYDA DIXON on 03/29/21 1018 Acetaminophen (Tylenol 8 Hour) 650 Mg Tablet.er, 1,300 MG PO Q4H PRN for PAIN- MILD (1-4), (Reported) Entered as Reported by: NEREYDA DIXON on 03/29/21 1018 Acetaminophen (Tylenol Arthritis) 650 Mg Tablet.er, 650 MG PO Q8H PRN for PAIN- MILD (1-4), (Reported) Entered as Reported by: NEREYDA DIXON on 03/29/21 1018 Apixaban (Eliquis) 5 Mg Tablet, 5 MG PO BID, (Reported) Entered as Reported by: CHAS CARBAJAL on 03/27/21 1547 Asenapine Maleate (Asenapine Maleate) 10 Mg Tab.subl, 10 MG SL HS, (Reported) Entered as Reported by: CHAS CARBAJAL on 03/27/21 154 Asenapine Maleate (Asenapine Maleate) 5 Mg Tab.subl, 5 MG SL DAILY, (Reported) Entered as Reported by: CHAS CARBAJAL on 03/27/21 154 Aspirin (Aspirin EC) 81 Mg Tablet.dr, 81 MG PO DAILY, (Reported) Entered as Reported by: CHAS CARBAJAL on 03/27/21 154 Bisacodyl (Bisacodyl) 10 Mg Supp.rect, 10 MG RC DAILY PRN for CONSTIPATION-4TH LINE, (Reported) Entered as Reported by: NEREYDA DIXON on 03/29/21 1018 Calcium Carbonate/Vitamin D3 (Calcium 600 + Vit D 400 Tablet) 1 Each Tablet, 1 EACH PO BID, (Reported) Entered as Reported by: NEREYDA DIXON on 03/29/21 1018 Carboxymethylcellulose Sodium (Refresh Tears) 15 Ml Drops, 2 DROPS OD BID, (Reported) Entered as Reported by: NEREYDA DIXON on 03/29/21 101 Carboxymethylcellulose Sodium (Refresh Tears) 15 Ml Drops, 2 DROPS OU Q6H PRN for DRY EYES, (Reported) Entered as Reported by: NEREYDA DIXON on 03/29/21 101 Cephalexin (Cephalexin) 500 Mg Tablet, 500 MG PO BID Prescribed by: ROBB DIOR on 04/06/21 0853 Docusate Sodium (Colace) 100 Mg Capsule, 100 MG PO BID, (Reported) Entered as Reported by: CHAS CARBAJAL on 03/27/211546 Donepezil HCl (Donepezil HCl) 10 Mg Tablet, 10 MG PO HS, (Reported) Entered as Reported by: CHAS CARBAJAL on 03/27/211546 Gabapentin (Gabapentin) 100 Mg Capsule, 100 MG PO 1900, (Reported) Entered as Reported by: CHAS CARBAJAL on 03/27/21 154 Levetiracetam (Levetiracetam) 750 Mg Tablet, 750 MG PO BID, (Reported) Entered as Reported by: CHAS CARBAJAL on 03/27/21 154 Lorazepam (Lorazepam Intensol) 2 Mg/1 Ml Oral.conc, 1-2 MG PO Q2H PRN for AGITATION Prescribed by: CHRISTOS CASILLAS on 04/19/21 1542 Mag Hydrox/Al Hydrox/Simeth (Mylanta Suspension) 30 Ml Oral.susp, 30 ML PO Q4H PRN for INDIGESTION, (Reported) Entered as Reported by: NEREYDA DIXON on 03/29/21 1018 Magnesium Hydroxide (Milk of Magnesia) 2,400 Mg/10 Ml Oral.susp, 30 ML PO DAILY PRN for CONSTIPATION-7TH LINE, (Reported) Entered as Reported by: NEREYDA DIXON on 03/29/21 1018 Melatonin (Melatonin) 3 Mg Capsule, 6 MG PO HS, (Reported) Entered as Reported by: CHAS CARBAJAL on 03/27/21 1547 Mirtazapine (Mirtazapine) 30 Mg Tablet, 30 MG PO HS, (Reported) Entered as Reported by: NEREYDA DIXON on 03/29/21 1018 Multivitamin (Multivitamin) 1 Each Tablet, 1 EACH PO DAILY, (Reported) Entered as Reported by: NERYEDA DIXON on 03/29/21 1018 Oxymetazoline HCl (Afrin) 15 Ml Mist, 2 SPRAYS NSEACH Q12H PRN for NOSEBLEEDS, (Reported) Entered as Reported by: NEREYDA DIXON on 03/29/21 1018 Pantoprazole Sodium (Pantoprazole Sodium) 40 Mg Tablet.dr, 40 MG PO DAILY, (Reported) Entered as Reported by: CHAS CARBAJAL on 03/27/21 1547 Polyethylene Glycol 3350 (Miralax) 17 Gm Powd.pack, 17 GM PO DAILY, (Reported) Entered as Reported by: NEREYDA DIXON on 03/29/21 101 Rosuvastatin Calcium (Rosuvastatin Calcium) 10 Mg Tablet, 10 MG PO HS, (Report ed) Entered as Reported by: CHAS CARBAJAL on 03/27/21 154 Sennosides (Senna) 8.6 Mg Tablet, 8.6 MG PO HS, (Reported) Entered as Reported by: NEREYDA DIXON on 03/29/21 1018 Sodium Chloride/Aloe Vera (Saline Nasal Gel) 14.1 Gm Gel..gram., 1 SPRAY NSEACH BID, (Reported) Entered as Reported by: NEREYDA DIXON on 03/29/21 1018 [morphine] 20 mg/ml , 10 MG SL Q2H PRN for AIR HUNGER Prescribed by: CHRISTOS CASILLAS on 04/19/21 1542 Review of Systems Review of Systems Constitutional: see HPI (Patient does not contribute to review of systems but staff gives the following); No fever, No malaise; weakness (Chronic, progressive ) EENTM: No Blurred Vision, No Double Vision Respiratory: Denies Cough, Denies Shortness of Air Cardiovascular: Denies Chest Pain, Denies Lightheadedness Gastrointestinal: Denies Constipated; Diarrhea; Denies Nausea; Poor Appetite; Denies Vomiting Genitourinary: Denies Burning, Denies Discharge Musculoskeletal: No back pain, No joint pain All Other Systems Reviewed Negative Unless Noted: Yes Past Bvkvalv-Vznqpf-Ryxhrl Hx Patient Social History Tobacco Use?: No Substance use?: No Pt feels they are or have been: Unable to obtain Immunizations Up To Date Tetanus Booster (TDap): Unknown First/Initial COVID19 Vaccinat: 09/03/20 Second COVID19 Vaccination Ricardo: 09/24/20 Seasonal Allergies Seasonal Allergies: No Past Medical History Surgery/Hospitalization HX: LEFT GREAT TOE AMPUTATION Surgeries: Yes Amputation, Orthopedic Respiratory: Yes (COVID-19 INFECTION) Pneumonia, COPD Currently Using CPAP: No Currently Using BIPAP: No Cardiac: Yes High Cholesterol, Hypertension Neurological: Yes (DEMENTIA WITH BEHAVIOR DISTURBANCE) Dementia, Neuropathy, Parkinson's Disease, Seizure Disorder Genitourinary: Yes Prostate Problems, Bladder Infection, Kidney Stones Gastrointestinal: Yes Gastroesophageal Reflux, Chronic Constipation, C-Diff Musculoskeletal: Yes (LEFT GREAT TOE AMPUTATION) Amputee, Arthritis, Fibromyalgia Endocrine: Yes Diabetes, Insulin dep HEENT: Yes (NOSEBLEEDS) Hearing Impairment: Hard of Hearing Cancer: No Psychosocial: Yes (DEMENTIA WITH BEHAVIOR DISTURBANCE) Sleep Difficulties, Depression Integumentary: No Blood Disorders: No Family Medical History Other Conditions/Hx Parents Physical Exam Vital Signs Vital Signs - First Documented 04/19/21 14:36 Temp 36.0 Pulse 90 Resp 16 B/P (MAP) 105/75 (85) Pulse Ox 99 O2 Delivery Room Air Capillary Refill : Less Than 3 Seconds Height/Weight/BMI Height: '" Weight: lbs. oz. kg; 25.00 BMI Method: General Appearance: no apparent distress, other (Chronically ill) HEENT: PERRL/EOMI, pharynx normal Neck: full range of motion, normal inspection Respiratory: lungs clear, normal breath sounds, no respiratory distress, no accessory muscle use Cardiovascular: normal peripheral pulses, regular rate, rhythm Gastrointestinal: normal bowel sounds, non tender, soft Genital/Rectal: normal rectal exam Extremities: normal inspection, normal capillary refill Neurologic/Psychiatric: alert, other (Groans, GCS 10. Nonconversational at baseline) Skin: normal color, warm/dry Procedures/Interventions Suture Size: 4-0 Progress/Results/Core Measures Results/Orders Lab Results Laboratory Tests Test 04/19/21 15:05 Range/Units White Blood Count 8.0 4.3-11.0 10^3/uL Red Blood Count 4.17 L 4.30-5.52 10^6/uL Hemoglobin 12.4 L 13.3-17.7 g/dL Hematocrit 39 L 40-54 % Mean Corpuscular Volume 94 80-99 fL Mean Corpuscular Hemoglobin 30 25-34 pg Mean Corpuscular Hemoglobin Concent 32 32-36 g/dL Red Cell Distribution Width 15.1 H 10.0-14.5 % Platelet Count 378 130-400 10^3/uL Mean Platelet Volume 10.4 9.0-12.2 fL Immature Granulocyte % (Auto) 0 % Neutrophils (%) (Auto) 59 42-75 % Lymphocytes (%) (Auto) 30 12-44 % Monocytes (%) (Auto) 7 0-12 % Eosinophils (%) (Auto) 3 0-10 % Basophils (%) (Auto) 1 0-10 % Neutrophils # (Auto) 4.7 1.8-7.8 10^3/uL Lymphocytes # (Auto) 2.4 1.0-4.0 10^3/uL Monocytes # (Auto) 0.6 0.0-1.0 10^3/uL Eosinophils # (Auto) 0.3 0.0-0.3 10^3/uL Basophils # (Auto) 0.0 0.0-0.1 10^3/uL Immature Granulocyte # (Auto) 0.0 0.0-0.1 10^3/uL Sodium Level 147 H 135-145 MMOL/L Potassium Level 4.3 3.6-5.0 MMOL/L Chloride Level 109 H 98-107 MMOL/L Carbon Dioxide Level 25 21-32 MMOL/L Anion Gap 13 5-14 MMOL/L Blood Urea Nitrogen 46 H 7-18 MG/DL Creatinine 1.83 H 0.60-1.30 MG/DL Estimat Glomerular Filtration Rate 36 BUN/Creatinine Ratio 25 Glucose Level 175 H 70-105 MG/DL Calcium Level 9.9 8.5-10.1 MG/DL Corrected Calcium 9.9 8.5-10.1 MG/DL Total Bilirubin 0.4 0.1-1.0 MG/DL Aspartate Amino Transf (AST/SGOT) 25 5-34 U/L Alanine Aminotransferase (ALT/SGPT) 18 0-55 U/L Alkaline Phosphatase 69 40-136 U/L Total Protein 7.7 6.4-8.2 GM/DL Albumin 4.0 3.2-4.5 GM/DL My Orders Orders - CHRISTOS CASILLAS Cbc With Automated Diff (04/19/21 14:57) Comprehensive Metabolic Panel (04/19/21 14:57) Ed Iv/Invasive Line Start (04/19/21 14:57) Ns Iv 500 Ml (Sodium Chloride 0.9%) (04/19/21 15:00) Pantoprazole Injection (Protonix Injecti (04/19/21 15:00) Ns (Ivpb) (Sodium C... W/Pantoprazole In (04/19/21 15:00) Pantoprazole Injection (Protonix Injecti (04/19/21 15:21) Medications Given in ED Current Medications Medications Dose Ordered Sig/Chana Route Start Time Stop Time Status Last Admin Dose Admin Pantoprazole 40 mg ONCE ONCE IV 04/19/21 15:00 04/19/21 15:01 DC 04/19/21 15:22 40 MG Sodium Chloride 500 ml @ 0 mls/hr Q0M ONCE IV 04/19/21 15:00 04/19/21 15:01 DC 04/19/21 15:26 500 MLS/HR Vital Signs/I&O 04/19/21 04/19/21 14:36 16:38 Temp 36.0 36.0 Pulse 90 73 Resp 16 16 B/P (MAP) 105/75 (85) 128/74 Pulse Ox 99 97 O2 Delivery Room Air Room Air Blood Pressure Mean: 85 Progress Progress Note : Time: 15:17 Progress Note Protonix drip for GI bleed. Positive Hemoccult Had an extensive conversation with Neyda Morrissey the POA and she states that is within his wishes to be a DNR unless he could make a meaningful neurologic recovery which she states is unlikely to happen. We discussed goals of care and she feels at this time since she saw him on Monday and he was rapidly diminishing in his mental capacity she has been exploring initiating a hospice company. She does not know which hospice company she would like to use. We are going to set the patient up to return on comfort cares and decrease his medications to just appropriate medicines and reduce his Saphris to once a day. She is happy with this plan and we will [facility] this [facility] the [facility]. Departure Impression Primary Impression: Upper GI bleeding Additional Impression: Need for comfort care Disposition: HOME, SELF-CARE Condition: Stable Departure-Patient Inst. Decision time for Depature: 15:37 Referrals: LEANDRA JORDAN DO (PCP/Family) Primary Care Physician Patient Instructions: Gastrointestinal Bleeding (DC) Add. Discharge Instructions: Comfort cares only. Saphris 5 mg sublingual every 0600 only. Discontinue other doses and discontinue other medications. Discontinue Accu-Cheks and vital signs. Ativan Intensol 1 to 2 mg every 2 hours as needed for air hunger, agitation. Morphine elixir 10 mg every 2 hours as needed for pain or air hunger. Call the [employer] and and establish a hospice company. Notify PCP. DO NOT RESUSCITATE. All discharge instructions reviewed with patient and/or family. Voiced understanding. Scripts [morphine] 20 mg/ml No Conflict Check 10 MG SL Q2H PRN for AIR HUNGER, #30 ML 0 Refills Prov: CHRISTOS CASILLAS 04/19/21 Lorazepam (Lorazepam Intensol) 2 Mg/1 Ml Oral.conc 1-2 MG PO Q2H PRN for AGITATION, #30 ML 0 Refills Prov: CHRISTOS CASILLAS 04/19/21 Copy Copies To 1: LEANDRA JORDAN TITUS J Apr 19, 2021 15:04
[2021-04-19 15:12] LABS: BASOPHILS % (AUTO) 1 % (0-10); EOSINOPHILS # (AUTO) 0.3 10^3/uL (0.0-0.3); EOSINOPHILS % (AUTO) 3 % (0-10); HEMATOCRIT 39 % (40-54); HEMOGLOBIN 12.4 g/dL (13.3-17.7); LYMPHOCYTES # (AUTO) 2.4 10^3/uL (1.0-4.0); LYMPHOCYTES % (AUTO) 30 % (12-44); MEAN CORPUSCULAR HEMOGLOBIN 30 pg (25-34); MEAN CORPUSCULAR HGB CONC 32 g/dL (32-36); MEAN CORPUSCULAR VOLUME 94 fL (80-99); MEAN PLATELET VOLUME 10.4 fL (9.0-12.2); MONOCYTES # (AUTO) 0.6 10^3/uL (0.0-1.0); MONOCYTES % (AUTO) 7 % (0-12); NEUTROPHILS # (AUTO) 4.7 10^3/uL (1.8-7.8); NEUTROPHILS % (AUTO) 59 % (42-75); PLATELET COUNT 378 10^3/uL (130-400)
[2021-04-19] MEDS ORDERED: PANTOPRAZOLE 40 MG (PROTONIX) VIAL ONE (15:21)
[2021-04-19 15:34] LABS: POTASSIUM 4.3 MMOL/L (3.6-5.0)
[2021-04-19 15:35] LABS: CALCIUM 9.9 MG/DL (8.5-10.1)
[2021-04-19 15:36] LABS: TOTAL PROTEIN 7.7 GM/DL (6.4-8.2)
[2021-04-19 15:38] LABS: BILIRUBIN,TOTAL 0.4 MG/DL (0.1-1.0)
[2021-04-19 15:40] LABS: CREATININE SERUM 1.83 MG/DL (0.60-1.30)
[2021-04-19] MEDS ORDERED: LORA2ORA PO (15:42)
[2021-04-19] MEDS ORDERED: morphine SL (15:42)
[2021-04-19 16:38] VITALS: BP 128/74
== END 2021-04-19 16:37 | disposition home or self-care (01) ==
LOC: EDUNIT# 14:31 → ER 14:33
DX: K92.2 Gastrointestinal hemorrhage, unspecified (principal); J44.9 Chronic obstructive pulmonary disease, unspecified; I10 Essential (primary) hypertension; G20 Parkinson's disease; F03.90 Unspecified dementia, unspecified severity, without behavioral disturbance, psychotic disturbance, mood disturbance, and anxiety; G40.909 Epilepsy, unspecified, not intractable, without status epilepticus; E11.9 Type 2 diabetes mellitus without complications; K21.9 Gastro-esophageal reflux disease without esophagitis; F32.9 Major depressive disorder, single episode, unspecified; E78.00 Pure hypercholesterolemia, unspecified; Z51.5 Encounter for palliative care; Z79.01 Long term (current) use of anticoagulants; Z79.82 Long term (current) use of aspirin; Z79.899 Other long term (current) drug therapy
CPT/HCPCS: 36415; 80053; 85025; 96374